=== PATIENT | male | born 1945 | race Caucasian/White ===

== ENCOUNTER 2016-12-06 17:22 | Emergency (ER) | payer MEDICARE ==
[2016-12-06 17:43] LABS: Bilirubin Negative (Negative); Blood, Urine Trace (Negative); Glucose, Urine (Dipstick) 500 mg/dL (Negative); Ketone, Urine 15 mg/dL (Negative); Nitrite Negative (Negative); Protein, Urine (Dipstick) 30 mg/dL (Neg-Trace); Urobilinogen 0.2 mg/dL (0.2-1.0)
[2016-12-06 18:15] LABS: Anion Gap 10 mmol/L (-14-95); T. Carbon Dioxide 24.6 mmol/L (1.0-85.0); pH (Venous) 7.436 (7.35-7.45); vO2 Saturation-calc 92.9 % (0.0-100.0)
[2016-12-06 18:24] LABS: #Basophils 0.1 thou/uL (0.0-0.2); #Eosinphils 0.1 thou/uL (0.0-0.7); #Lymphocytes 2.7 thou/uL (1.20-3.40); #Monocytes 0.5 thou/uL (0.11-0.59); #Neutrophils 3.7 thou/uL (1.40-6.50); %Basophils 0.7 % (0.0-1.0); %Eosinophils 1.5 % (0.0-10.0); %Lymphocytes 38.6 % (21.0-51.0); %Monocytes 6.8 % (0.0-10.0); Hematocrit 36.1 % (42.0-52.0); Mean Platelet Volume 7.4 fL (7.4-10.4); Red Blood Cell (RBC) Count 3.78 mill/uL (4.70-6.10)
[2016-12-06 18:25] LABS: Bacteria/HPF None Seen HPF (None Seen); Hyaline Casts/LPF 0-3 HYALINE CAST LPF (0-3 Hyaline); RBC/HPF 0-3 HPF (0-3); Squamous Epithelial None Seen HPF (0-3); WBC/HPF 0-3 HPF (0-3)
[2016-12-06 18:32] LABS: ALT (SGPT) 15 U/L (8-55); AST (SGOT) 11 U/L (5-34); Alkaline Phosphatase 122 U/L (40-150); Anion Gap 16 mmol/L (10-20); BUN (Urea Nitrogen) 26 mg/dL (8.4-25.7); Bilirubin, Total 0.4 mg/dL (0.2-1.2); Calc. Creatinine Clearance 0 mL/min (70-130); Calcium 9.3 mg/dL (7.8-10.44); Carbon Dioxide 25 mmol/L (23-31); Chloride 97 mmol/L (98-107); Estimated GFR-MDRD 45; Globulin 2.6 g/dL (2.4-3.5); Protein, Total 6.4 g/dL (5.8-8.1)
--- NOTE | 2016-12-06 19:10 | CT ---
CT BRAIN WITHOUT CONTRAST: Indication: 71-year-old male with elevated glucose, confusion and irritability. Comparison: 11-22-16 FINDINGS: No acute infarct, hemorrhage, or hydrocephalus is noted. 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 Septum pellucidum and third ventricle are midline. Skull and extracranial soft tissues are unremarkable. IMPRESSION: No acute intracranial abnormality. POS: [facility]
--- NOTE | 2016-12-06 19:13 | RAD ---
AP CHEST: Indication: Altered mental status. Comparison: 04-18-04 FINDINGS: Heart size is mildly prominent. Pulmonary vasculature is normal. No confluent airspace opacity, pleu ral effusion, or pneumothorax is evident. No acute osseous abnormality is evident. IMPRESSION: Mild cardiomegaly without evidence of cardiac decompensation. POS: [facility]
[2016-12-06] MEDS ORDERED: Insulin Regular 300 UNITS/3 ML VIAL ONE (20:10)
--- NOTE | 2016-12-11 14:55 | EKG ---
Test Reason : Blood Pressure : / mmHG Vent. Rate : 070 BPM Atrial Rate : 070 BPM P-R Int : 158 ms QRS Dur : 080 ms QT Int : 408 ms P-R-T Axes : 050 020 038 degrees QTc Int : 440 ms Normal sinus rhythm Nonspecific T wave abnormality Abnormal ECG Confirmed by CRISTA VEE D.O. ([id number]), editorial assistant VINCE PONCE ([id number]) on 12/11/2016 2:55:04 PM Referred By: Confirmed By:CRISTA VEE D.O.
== END 2016-12-06 22:12 | disposition home or self-care (01) ==
LOC: ERS 17:22
DX: E10.65 Type 1 diabetes mellitus with hyperglycemia (principal); N17.9 Acute kidney failure, unspecified; E78.5 Hyperlipidemia, unspecified; Z86.73 Personal history of transient ischemic attack (TIA), and cerebral infarction without residual deficits; I10 Essential (primary) hypertension; Z79.82 Long term (current) use of aspirin; Z79.899 Other long term (current) drug therapy
CPT/HCPCS: 36415; 36416; 70450; 71010; 80053; 81003; 81015; 82010; 82330; 82803; 85025; 93005; 96361; 96374; J1815

== ENCOUNTER 2016-12-22 21:24 | Emergency (ER) | payer MEDICARE ==
[2016-12-22 23:06] LABS: #Basophils 0.1 thou/uL (0.0-0.2); #Eosinphils 0.2 thou/uL (0.0-0.7); #Lymphocytes 3.5 thou/uL (1.20-3.40); #Monocytes 0.8 thou/uL (0.11-0.59); #Neutrophils 4.5 thou/uL (1.40-6.50); %Basophils 0.9 % (0.0-1.0); %Eosinophils 2.3 % (0.0-10.0); %Lymphocytes 38.2 % (21.0-51.0); %Monocytes 9.2 % (0.0-10.0); Hematocrit 39.5 % (42.0-52.0); Mean Platelet Volume 7.4 fL (7.4-10.4); White Blood Cell (WBC) Count 9.1 thou/uL (4.8-10.8)
[2016-12-22] MEDS ORDERED: Furosemide 40 MG TAB ONE (23:09)
[2016-12-22 23:21] LABS: ALT (SGPT) 13 U/L (8-55); AST (SGOT) 13 U/L (5-34); Alkaline Phosphatase 122 U/L (40-150); Anion Gap 15 mmol/L (10-20); BUN (Urea Nitrogen) 14 mg/dL (8.4-25.7); Bilirubin, Total 0.5 mg/dL (0.2-1.2); Calc. Creatinine Clearance 0 mL/min (70-130); Calcium 9.4 mg/dL (7.8-10.44); Carbon Dioxide 25 mmol/L (23-31); Chloride 102 mmol/L (98-107); Estimated GFR-MDRD 85; Globulin 2.9 g/dL (2.4-3.5); Protein, Total 6.9 g/dL (5.8-8.1)
[2016-12-23 00:11] LABS: Bilirubin Negative (Negative); Blood, Urine Negative (Negative); Glucose, Urine (Dipstick) Negative (Negative); Ketone, Urine Negative (Negative); Nitrite Negative (Negative); Protein, Urine (Dipstick) Negative (Neg-Trace); Urobilinogen 0.2 mg/dL (0.2-1.0)
== END 2016-12-23 00:05 | disposition home or self-care (01) ==
LOC: ERS 21:24
DX: I10 Essential (primary) hypertension (principal); E10.9 Type 1 diabetes mellitus without complications; E78.5 Hyperlipidemia, unspecified; Z86.73 Personal history of transient ischemic attack (TIA), and cerebral infarction without residual deficits; Z79.899 Other long term (current) drug therapy; Z79.82 Long term (current) use of aspirin
CPT/HCPCS: 36415; 80053; 81003; 85025; 99284

== ENCOUNTER 2016-12-28 04:22 | Inpatient (IN) | payer MEDICARE ==
[2016-12-28] MEDS ORDERED: Dextrose 50% Abboject 50 ML SYRINGE ONE (05:11)
[2016-12-28 05:22] LABS: #Lymphocytes 1.7 thou/uL (1.20-3.40); #Monocytes 0.9 thou/uL (0.11-0.59); #Neutrophils 10.2 thou/uL (1.40-6.50); %Basophils 0.1 % (0.0-1.0); %Eosinophils 0.2 % (0.0-10.0); %Monocytes 7.2 % (0.0-10.0); Hematocrit 42.5 % (42.0-52.0); Red Blood Cell (RBC) Count 4.46 mill/uL (4.70-6.10); White Blood Cell (WBC) Count 12.8 thou/uL (4.8-10.8)
[2016-12-28 05:45] LABS: ALT (SGPT) 20 U/L (8-55); AST (SGOT) 30 U/L (5-34); Alkaline Phosphatase 124 U/L (40-150); Anion Gap 13 mmol/L (10-20); BUN (Urea Nitrogen) 13 mg/dL (8.4-25.7); Bilirubin, Total 0.6 mg/dL (0.2-1.2); Calc. Creatinine Clearance 0 mL/min (70-130); Calcium 9.6 mg/dL (7.8-10.44); Carbon Dioxide 30 mmol/L (23-31); Chloride 100 mmol/L (98-107); Estimated GFR-MDRD 68; Globulin 3.1 g/dL (2.4-3.5); Lipase 18 U/L (8-78); Protein, Total 7.3 g/dL (5.8-8.1)
[2016-12-28 05:49] LABS: Troponin I 0.024 ng/mL (< 0.028)
[2016-12-28 07:09] LABS: Bilirubin Negative (Negative); Blood, Urine Negative (Negative); Glucose, Urine (Dipstick) 100 mg/dL (Negative); Ketone, Urine Negative (Negative); Nitrite Negative (Negative); Protein, Urine (Dipstick) Negative (Neg-Trace); Urobilinogen 0.2 mg/dL (0.2-1.0)
--- NOTE | 2016-12-28 08:41 | CT ---
PRELIMINARY REPORT/[facility]/EMERGENCY AFTER-HOURS PROCEDURE: EXAM: CT Cervical Spine Without Intravenous Contrast EXAM DATE/TIME: Exam ordered 12/28/2016 5:37 AM CLINICAL HISTORY: 71 years old, male; Injury or trauma; Fall; Initial encounter; Blunt trauma; Patient HX: S/P fall TECHNIQUE: Axial computed tomography images of the cervical spine without intravenous contrast. COMPARISON: No relevant prior studies available. FINDINGS: Vertebrae: No acute cervical spine fracture is identified. Discs/spinal canal/neural foramina: No acute findings. No spinal canal stenosis. Soft tissues: Normal. Thyroid: There is a subcentimeter RIGHT thyroid lobe hypoattenuating nodule. Lung apices: The visualized portions of the lung apices are normal. IMPRESSION: No acute cervical spine fracture is identified. Thank you for allowing us to participate in the care of your patient. Dictated and Authenticated by: Crow Stern MD 12/28/2016 5:51 AM Central Time ([place]) FINAL REPORT CT CERVICAL SPINE WITHOUT CONTRAST: Date: 12/28/16 HISTORY: Trauma. Fall. Altered mental status. COMPARISON: None. FINDINGS: No acute fracture or malalignment. Lung apices are clear. Soft tissues are unremarkable. IMPRESSION: No acute fracture or malalignment. Findings are in agreement with the preliminary report by Melanie. POS: [facility]
[2016-12-28 10:06] LABS: Troponin I 0.025 ng/mL (< 0.028)
--- NOTE | 2016-12-28 10:11 | CT ---
PRELIMINARY REPORT/[facility]/EMERGENCY AFTER-HOURS PROCEDURE: EXAM: CT Head Without Intravenous Contrast EXAM DATE/TIME: Exam ordered 12/28/2016 5:35 AM CLINICAL HISTORY: 71 years old, male; Injury or trauma; Fall; Initial encounter; Blunt trauma (contusions or hematomas ); Without loss of consciousness; Patient HX: S/P fall TECHNIQUE: Axial computed tomography images of the head/brain without intravenous contrast. COMPARISON: No relevant prior studies available. FINDINGS: Brain: There are multiple small hypodensities in the basal ganglia, consistent with remote lacunar infarctions. No hemorrhage. Ventricles: Normal. No ventriculomegaly. Bones/joints: Normal. No acute fracture. Soft tissues: Normal. Sinuses: Unremarkable as visualized. No acute sinusitis. Mastoid air cells: Unremarkable as visualized. No mastoid effusion. IMPRESSION: No acute intracranial hemorrhage. Thank you for allowing us to participate in the care of your patient. Dictated and Authenticated by: Crow Stern MD 12/28/2016 5:49 AM Central Time ([place]) FINAL REPORT CT BRAIN WITHOUT CONTRAST: Date: 12/28/16 HISTORY: Altered mental status. COMPARISON: CT brain dated 12/06/16. FINDINGS/IMPRESSION: Findings and impression are concordant with the preliminary report by Melanie. No acute intracranial fi ndings. POS: [facility]
[2016-12-28] MEDS ORDERED: Triple Antibiotic Oint 1 GM Packet TOP PRN (10:19)
[2016-12-28] MEDS ORDERED: Dextrose 50% Abboject 50 ML SYRINGE IVP PRN (10:20)
[2016-12-28] MEDS ORDERED: Dextrose 5% in Water 1,000 ML IV PRN ×2 (10:20→14:09)
[2016-12-28] MEDS ORDERED: Amlodipine 5 MG TAB PO SCH (13:00)
[2016-12-28 13:32] LABS: Troponin I 0.023 ng/mL (< 0.028)
[2016-12-28 13:33] LABS: Critical Call CKMBM RESULT DECREASING
--- NOTE | 2016-12-28 13:42 | HP ---
DATE OF OBSERVATION: 12/28/2016 CHIEF COMPLAINT: Chest pain. HISTORY OF PRESENT ILLNESS: The patient is a 71[facility]-old [facility] patient who fell at the [facility] and was brought to the ER for further evaluation. While in the ER, he was noted to have boone e chest pain. There has been some facial bruising and ecchymosis from his fall, but otherwise CT sc ans of the neck and head and brain are negative; however, in the workup of his chest pain while init ial tests are negative, it is felt that he needed further testing and observation. PAST MEDICAL HISTORY: Significant for diabetes type 1, dyslipidemia, heart failure, TIA with residu al deficits, toxic encephalopathy, and hypertension. PAST SURGICAL HISTORY: Includes right hip. SOCIAL HISTORY: Denies alcohol use and drug use. No smoking. Lives at the [facility] at [facility]. ALLERGIES: He is allergic to PENICILLIN. MEDICATIONS: Included daily 81 mg aspirin, atorvastatin 40 mg, lisinopril 20 mg daily, metformin 50 0 mg b.i.d., Levemir 20 units subcutaneous b.i.d., Prilosec 20 mg daily, hydralazine 25 mg t.i.d. M ost recent evaluation had him come to the ER for elevated blood pressure. REVIEW OF SYSTEMS: CONSTITUTIONAL: He denies fever, chills, fatigue. HEENT: He has scattered bru ising to the face and complains of pain in the left side of his face after his fall. Denies rhinorr hea, lesions or discharge. Vision is not changed. There is no blurred vision or tearing. CHEST: Has some substernal discomfort, but no pain with inspiration or palpation or movement. HEART: Richard es palpitations or irregular beats. GASTROINTESTINAL: Denies nausea, vomiting, and pain. GENITOUR INARY: Denies dysuria or blood in urine or stool. MUSCULOSKELETAL: Has pain in the left side of h is face from fall, but otherwise no painful muscles with painful range of motion. ENDOCRINE: No ar eas of swelling or edema. 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 He has ecchymotic bruising on the left side of his face. PHYSICAL EXAMINATION: VITAL SIGNS: At the time of admission, elderly while alert male, responsive, cooperative. HEENT: Normocephalic, but with traumatic bruising and ecchymosis to the left side of his face. Pup ils equal, round, and reactive to light. Extraocular muscles are intact. Conjunctivae injected and red. TMs, nares, and pharynx are clear. NECK: Supple, trachea midline, no mass. CHEST: Clear to auscultation. Nontender to palpation. HEART: Regular rate and rhythm, no murmur. ABDOMEN: Soft and nontender without organomegaly. GENITOURINARY: Deferred. EXTREMITIES: Without clubbing, cyanosis, or edema. Normal range of motion present. SKIN: Without rashes or lesions aside from the ecchymotic bruising on his left side of his face and abrasions to his right leg and knee from the fall. NEUROLOGIC: Neurologically, he has significant dementia, not able to remember the examiner from pre vious visit in my office. Cranial nerves are intact. Unable to test gait and cerebellar function a t this time. Sensory exam is intact. He moves all of his extremities appropriately. Mentation, he admits to poor memory. LABORATORY DATA AND X-RAY FINDINGS: The lab work so far shows WBC is 12.8, hemoglobin 13.9, hematoc rit 42.5 with platelets at 388. Sodium 139, potassium 4.2, chloride 100, CO2 is 30, BUN 13, creatin ine 1.0, glucose is 45 initially, now it is 135, 93, and 91, CK-MB is elevated at 13.4. Troponins a re negative. Liver functions normal. UA shows 100 of glucose, but otherwise unremarkable. The CT scan of the head and neck showed no acute fractures or lesions. ASSESSMENT: 1. Fall at [facility], probably hypoglycemia related. 2. Chest pain, atypical, and doubt cardiac origin. 3. Dementia. PLAN: Will be observation for serial evaluation of cardiac enzymes and should the troponins continu e negative, we will then return to [facility]. He will also be given Tylenol for pain management as needed. Other medications will be continued as well.
[2016-12-28] MEDS ORDERED: Insulin Regular 300 UNITS/3 ML VIAL SC PRN (14:09)
[2016-12-28] MEDS ORDERED: Insulin NPH/Reg Insulin Hm 300 UNITS/3 ML VIAL SC SCH (14:15)
[2016-12-28] MEDS: hydrALAZINE 25 MG TAB PO SCH ×2 (14:34→21:15)
[2016-12-28] MEDS: Sodium Chloride 0.9% 1,000 ML IV SCH (14:35)
[2016-12-28 15:50] LABS: Troponin I Less than 0.010 ng/mL (< 0.028)
[2016-12-28 15:52] LABS: Critical Call CKMBM RESULT DECREASING
[2016-12-28] MEDS: metFORMIN 500 MG TAB PO SCH (16:13)
[2016-12-28] MEDS ORDERED: metFORMIN 500 MG TAB PO SCH (17:00)
[2016-12-28] MEDS ORDERED: Adacel (T-DAP) 0.5 ML VIAL IM ONE (21:00)
[2016-12-28] MEDS ORDERED: FLU VACC TS2017-18 (>65YR) 0.5 ML SYRINGE IM ONE (21:00)
[2016-12-28] MEDS: Atorvastatin Calcium 40 MG TAB PO SCH (21:15)
[2016-12-29] MEDS: Sodium Chloride 0.9% 1,000 ML IV SCH ×2 (01:00→08:52)
--- NOTE | 2016-12-29 08:05 | PRG ---
DATE OF SERVICE: 12/29/2016 SUBJECTIVE: The patient is awake. He states he does not feel good \\\\"secondary to his blood sugar issues\\\\". There is no family here at bedside. According to the nurse, he did have labile blood s ugars all through the night. It did get as low as in the 20s. The patient is also on IV fluids sec ondary to hypoglycemia. PHYSICAL EXAMINATION GENERAL: On evaluation he is awake. VITAL SIGNS: Blood pressure is 130/60, pulse 70, respirations 18, temperature 98.2. NECK: Supple with no increased JVP or carotid bruit. Carotid had good upstroke with no thyromegaly . COR: Regular rate and rhythm. No murmur, S3. CHEST: Symmetrical. Clear to auscultation and percussion. ABDOMEN: Soft, nontender with normoactive bowel sounds. No bruit or organomegaly. EXTREMITIES: No edema or cyanosis. He had palpable pedal pulses. SKIN: There is no evidence of ulcers lesion, or rash. NEUROLOGIC: He is awake and he is slightly confused. LABORATORY DATA: Showed a UA so far to be negative of leukocyte, culture is pending. His white blo od cells 12.8. His H\\T\\H 13.9 and 42.5, platelets 388. His hemoglobin A1c was 9. ASSESSMENT: 1. Insulin dependent diabetes mellitus, not controlled. 2. Dementia. 3. Leukocytosis, questionable etiology. 4. Noncardiac chest pain, resolved. PLAN: 1. I will continue the patient's intravenous fluids for now. 2. We will change his metformin to 500 b.i.d. 3. We will check blood sugars every 3 hours and use low dose sliding scale insulin per protocol. 4. We will check a urinalysis and C\\T\\S and chest x-ray secondary to leukocytosis. 5. We will check a CBC in the morning. 6. We will get out of bed and place him in the chair.
[2016-12-29] MEDS: metFORMIN 500 MG TAB PO SCH ×2 (08:53→16:49)
[2016-12-29] MEDS ORDERED: Insulin Detemir 100 UNITS/ML 10 UNITS in Pre-Filled Syringe 1 EACH SC SCH (09:00)
[2016-12-29] MEDS: Amlodipine 5 MG TAB PO SCH (09:32)
[2016-12-29] MEDS: hydrALAZINE 25 MG TAB PO SCH ×3 (09:32→20:00)
[2016-12-29] MEDS: Dextrose 5 % And 0.9 % NaCl 1,000 ML IV SCH ×2 (09:36→20:01)
--- NOTE | 2016-12-29 09:40 | RAD ---
RADIOGRAPH CHEST 2 VIEWS: Date: 12/29/16 Time: 0926 HOURS HISTORY: 71-year-old male with chest pain. COMPARISON: 1 view study of 12/06/16. FINDINGS: Again demonstrated are the cardiomegaly and ectatic, tortuous thoracic aorta. There is hyperlucency of the lungs representing COPD. The lateral view demonstrates blunting of the bilateral posterior co stophrenic angles representing small pleural effusions. No consolidation or pulmonary edema. No pneu mothorax. IMPRESSION: 1. Small bilateral pleural effusions. 2. Cardiomegaly without congestive heart failure. 3. Emphysema. 4. No acute infiltrate. LUISITO [] POS: [facility]
[2016-12-29] MEDS ORDERED: metFORMIN 500 MG TAB PO SCH (09:45)
[2016-12-29 11:46] LABS: Bilirubin Negative (Negative); Blood, Urine Negative (Negative); Glucose, Urine (Dipstick) >=1000 mg/dL (Negative); Ketone, Urine Negative (Negative); Nitrite Negative (Negative); Protein, Urine (Dipstick) Negative (Neg-Trace); Urobilinogen 0.2 mg/dL (0.2-1.0)
[2016-12-29 11:49] LABS: Bacteria/HPF None Seen HPF (None Seen); Hyaline Casts/LPF 0-3 HYALINE CAST LPF (0-3 Hyaline); RBC/HPF 0-3 HPF (0-3); Squamous Epithelial None Seen HPF (0-3); WBC/HPF None Seen HPF (0-3)
--- NOTE | 2016-12-29 14:59 | EKG ---
Test Reason : Blood Pressure : / mmHG Vent. Rate : 072 BPM Atrial Rate : 072 BPM P-R Int : 174 ms QRS Dur : 082 ms QT Int : 414 ms P-R-T Axes : 060 023 -01 degrees QTc Int : 453 ms Normal sinus rhythm Nonspecific T wave abnormality Abnormal ECG Confirmed by KRISTOPHER CUELLO ([id number]) on 12/29/2016 2:59:12 PM Referred By: Benigno FARMER Confirmed By:KRISTOPHER CUELLO
[2016-12-29] MEDS: Insulin Regular 300 UNITS/3 ML VIAL SC PRN ×2 (18:24→21:03)
[2016-12-29] MEDS: Atorvastatin Calcium 40 MG TAB PO SCH (20:00)
[2016-12-29] MEDS ORDERED: Sodium Chloride 0.9% 10 ML ONE (21:00)
[2016-12-30 04:47] LABS: #Basophils 0.1 thou/uL (0.0-0.2); #Eosinphils 0.2 thou/uL (0.0-0.7); #Lymphocytes 2.7 thou/uL (1.20-3.40); #Neutrophils 4.8 thou/uL (1.40-6.50); %Basophils 0.8 % (0.0-1.0); %Eosinophils 2.4 % (0.0-10.0); %Lymphocytes 30.8 % (21.0-51.0); Hematocrit 38.3 % (42.0-52.0); Red Blood Cell (RBC) Count 4.08 mill/uL (4.70-6.10); White Blood Cell (WBC) Count 8.8 thou/uL (4.8-10.8)
[2016-12-30] MEDS: Insulin Regular 300 UNITS/3 ML VIAL SC PRN ×2 (06:13→09:27)
[2016-12-30] MEDS: Dextrose 5 % And 0.9 % NaCl 1,000 ML IV SCH ×2 (09:17→14:31)
[2016-12-30] MEDS: Amlodipine 5 MG TAB PO SCH (09:20)
[2016-12-30] MEDS: hydrALAZINE 25 MG TAB PO SCH ×3 (09:20→21:13)
[2016-12-30] MEDS: Insulin NPH/Reg Insulin Hm 300 UNITS/3 ML VIAL SC SCH ×2 (09:20→21:14)
[2016-12-30] MEDS: metFORMIN 500 MG TAB PO SCH ×2 (11:50→15:51)
[2016-12-30] MEDS: Insulin Detemir 100 UNITS/ML 20 UNITS in Pre-Filled Syringe 1 EACH SC SCH (12:41)
[2016-12-30] MEDS: Atorvastatin Calcium 40 MG TAB PO SCH (21:13)
[2016-12-31] MEDS: Dextrose 5 % And 0.9 % NaCl 1,000 ML IV SCH ×2 (02:33→11:43)
[2016-12-31 04:34] LABS: #Eosinphils 0.2 thou/uL (0.0-0.7); #Lymphocytes 2.5 thou/uL (1.20-3.40); #Monocytes 0.9 thou/uL (0.11-0.59); #Neutrophils 4.7 thou/uL (1.40-6.50); %Basophils 0.2 % (0.0-1.0); %Eosinophils 2.1 % (0.0-10.0); %Monocytes 11.2 % (0.0-10.0); Mean Platelet Volume 6.9 fL (7.4-10.4); Red Blood Cell (RBC) Count 4.04 mill/uL (4.70-6.10); White Blood Cell (WBC) Count 8.3 thou/uL (4.8-10.8)
[2016-12-31 05:01] LABS: Anion Gap 13 mmol/L (10-20); BUN (Urea Nitrogen) 16 mg/dL (8.4-25.7); Calc. Creatinine Clearance 82 mL/min (70-130); Calcium 9.2 mg/dL (7.8-10.44); Carbon Dioxide 27 mmol/L (23-31); Chloride 101 mmol/L (98-107); Estimated GFR-MDRD 83
[2016-12-31] MEDS: Dextrose 50% Abboject 50 ML SYRINGE IVP PRN (06:19)
--- NOTE | 2016-12-31 08:30 | PRG ---
DATE OF SERVICE: 12/31/2016 SUBJECTIVE: The patient is sitting in the chair, eating breakfast. He is about to be moved to the 4th floor. Unfortunately, his blood sugars are still all over the place, this morning it was 40. T he nurse does say he does eat good and he did have a snack last night. PHYSICAL EXAMINATION: GENERAL: He is awake. VITAL SIGNS: Blood pressure is 190/90, pulse 77, respirations 18, he is afebrile. NECK: Supple with no increased JVP or carotid bruit. Carotid had good upstroke with no thyromegaly . COR: Regular rate and rhythm. CHEST: Symmetrical. Clear to auscultation and percussion. ABDOMEN: Soft, nontender with normoactive bowel sounds. No bruit or organomegaly. EXTREMITIES: No edema or cyanosis. He had palpable pedal pulses. SKIN: There is no evidence of ulcers lesion, or rash. NEUROLOGIC: He is awake and confused. LABORATORY: His CBC is normal. His CMP is normal. ASSESSMENT: 1. Diabetes, uncontrolled. 2. Dementia. 3. Hypertension. PLAN: We will transfer the patient to the 4th floor and make some changes with diabetic medication. Unfortunately [facility].
[2016-12-31] MEDS: metFORMIN 500 MG TAB PO SCH ×2 (09:20→17:16)
[2016-12-31] MEDS: hydrALAZINE 25 MG TAB PO SCH ×3 (09:21→20:20)
[2016-12-31] MEDS: Amlodipine 5 MG TAB PO SCH (09:21)
[2016-12-31] MEDS: Insulin NPH/Reg Insulin Hm 300 UNITS/3 ML VIAL SC SCH (09:30)
[2016-12-31] MEDS: Insulin Detemir 100 UNITS/ML 20 UNITS in Pre-Filled Syringe 1 EACH SC SCH (11:17)
[2016-12-31] MEDS: Acetaminophen 325 MG TAB PO PRN (17:17)
--- NOTE | 2016-12-31 19:13 | CT ---
CT CHEST NONCONTRAST: Date: 12/31/16 INDICATION: Fever. FINDINGS: There is a mild left pleural effusion and trace right pleural fluid. There are areas of atelectasis involving each lung. No pneumothorax. Regional soft tissues, including vasculature and lymph nodes, are limited in assessment by noncontrast technique. There is vascular calcification. There is osseou s demineralization and scattered osseous degenerative change. IMPRESSION: Pleural fluid, left greater than right, with associated pulmonary parenchymal opacification bilatera lly favoring atelectasis. POS: [facility]
--- NOTE | 2016-12-31 20:00 | RAD ---
LEFT ELBOW FOUR VIEWS: HISTORY: Left elbow pain. FINDINGS: Mild degenerative changes are present. No fracture, dislocation, or bony destruction is identified. POS: [facility]
[2016-12-31] MEDS: Azithromycin 250 MG TAB PO SCH (20:20)
[2016-12-31] MEDS: Atorvastatin Calcium 40 MG TAB PO SCH (20:20)
[2016-12-31] MEDS ORDERED: Insulin NPH/Reg Insulin Hm 300 UNITS/3 ML VIAL SC SCH (21:00)
[2017-01-01] MEDS: hydrALAZINE 25 MG TAB PO SCH ×3 (08:45→20:07)
[2017-01-01] MEDS: metFORMIN 500 MG TAB PO SCH ×2 (08:45→17:34)
[2017-01-01] MEDS: Amlodipine 10 MG TAB PO SCH (08:45)
[2017-01-01] MEDS: Insulin NPH/Reg Insulin Hm 300 UNITS/3 ML VIAL SC SCH ×2 (08:55→20:09)
[2017-01-01] MEDS: Insulin Detemir 100 UNITS/ML 20 UNITS in Pre-Filled Syringe 1 EACH SC SCH (10:14)
--- NOTE | 2017-01-01 10:30 | PRG ---
DATE OF SERVICE: 01/01/2017 This is CHRISTOPHER Winters-Ever, dictating for Sher Baldwin M.D. SUBJECTIVE: The patient had some fever late afternoon into the early evening. I did order a series of tests and found that he did have strep. Therefore, he was started on appropriate antibiotics. The patient's blood sugar was much better in the last 12 hours or so. PHYSICAL EXAMINATION: GENERAL: Upon evaluation, he is awake, he is confused. VITAL SIGNS: Blood pressure is high, 160/70; pulse 80; respirations 20; temperature better at 98.9. NECK: Supple with no increased JVP or carotid bruit. Carotid had good upstroke with no thyromegaly . COR: Regular rate and rhythm. CHEST: Symmetrical. Clear to auscultation and percussion. ABDOMEN: Soft, nontender with normoactive bowel sounds. There is no bruit or organomegaly. EXTREMITIES: No edema or cyanosis. Palpable pedal pulses. SKIN: There is no evidence of ulcers lesion, or rash. NEUROLOGIC: He is awake, but confused. ASSESSMENT: 1. Streptococcal pharyngitis. 2. Diabetes. 3. Dementia. 4. Hyperlipidemia. 5. Hypertension. PLAN: 1. The patient's insulin will be changed. We will also change his Accu-Cheks to a.c. and at bedtim e. 2. We will adjust his blood pressure medication. 3. Hopefully if all is okay, he will be able [facility] tomorrow.
[2017-01-01] MEDS: Insulin Regular 300 UNITS/3 ML VIAL SC PRN ×2 (12:23→17:46)
[2017-01-01] MEDS: Acetaminophen 325 MG TAB PO PRN (20:07)
[2017-01-01] MEDS: Azithromycin 250 MG TAB PO SCH (20:07)
[2017-01-01] MEDS: Atorvastatin Calcium 40 MG TAB PO SCH (20:07)
--- NOTE | 2017-01-02 08:36 | PRG ---
DATE OF SERVICE: 01/02/2017 This is ILDA Winters dictating a progress note for Sher Baldwin M.D. SUBJECTIVE: Patient is confused. He thinks he is in \\\\"mediation.\\\\" There is no family here at [facility]. PHYSICAL EXAMINATION: VITAL SIGNS: Upon evaluation, his blood pressure is 160/90, pulse 70, respirations 18. He is afebr ile. NECK: Supple with no increased JVP or carotid bruit. Carotid had good upstroke with no thyromegaly . COR: Regular rate and rhythm. CHEST: Symmetrical. Clear to auscultation and percussion. ABDOMEN: Soft, nontender with normoactive bowel sounds. No bruit or organomegaly. EXTREMITIES: No edema or cyanosis. Palpable pedal pulses. SKIN: There is no evidence of ulcers, lesion, or rash. NEUROLOGIC: He is confused. LABORATORY DATA: His blood sugar is not hypoglycemic; it is running in the 200s. ASSESSMENT: 1. Diabetes. 2. Dementia. 3. Streptococcal pharyngitis. 4. Hypertension. PLAN: The patient is not safe to go back to assisted living secondary to his dementia and his diabe jasmyne. So, therefore, we will go ahead and do placement in a [facility]. So, once that is obtained , we are looking on sending him to a fdc.
[2017-01-02] MEDS: metFORMIN 500 MG TAB PO SCH ×2 (09:02→17:30)
[2017-01-02] MEDS: hydrALAZINE 25 MG TAB PO SCH ×3 (09:02→21:01)
[2017-01-02] MEDS: Amlodipine 10 MG TAB PO SCH (09:02)
[2017-01-02] MEDS: Insulin Detemir 100 UNITS/ML 20 UNITS in Pre-Filled Syringe 1 EACH SC SCH (09:03)
[2017-01-02] MEDS: Insulin NPH/Reg Insulin Hm 300 UNITS/3 ML VIAL SC SCH ×2 (09:04→21:15)
[2017-01-02] MEDS: Insulin Regular 300 UNITS/3 ML VIAL SC PRN ×2 (12:31→19:53)
[2017-01-02] MEDS: Azithromycin 250 MG TAB PO SCH (21:00)
[2017-01-02] MEDS: Atorvastatin Calcium 40 MG TAB PO SCH (21:00)
[2017-01-03] MEDS: metFORMIN 500 MG TAB PO SCH ×2 (08:17→16:47)
[2017-01-03] MEDS: Amlodipine 10 MG TAB PO SCH (08:18)
[2017-01-03] MEDS: hydrALAZINE 25 MG TAB PO SCH ×3 (08:18→20:40)
[2017-01-03] MEDS: Insulin Detemir 100 UNITS/ML 20 UNITS in Pre-Filled Syringe 1 EACH SC SCH (08:19)
[2017-01-03] MEDS: Insulin NPH/Reg Insulin Hm 300 UNITS/3 ML VIAL SC SCH ×2 (08:20→20:41)
[2017-01-03] MEDS ORDERED: Metoprolol Tartrate 25 MG TAB PO SCH (09:00)
[2017-01-03] MEDS: Insulin Regular 300 UNITS/3 ML VIAL SC PRN ×2 (12:15→20:42)
--- NOTE | 2017-01-03 17:50 | PRG ---
DATE OF SERVICE: 01/03/2017 This is CHRISTOPHER Winters-Ever, dictating for Sher Baldwin M.D. SUBJECTIVE: The patient had a good night. He is eating well. He did have a bowel movement. His b lood sugars are better than they have been. PHYSICAL EXAMINATION: GENERAL: On evaluation, he is awake, he is confused. VITAL SIGNS: His blood pressure is 160/90, this is before medications, pulse 80, respirations 18, h e is afebrile. NECK: Supple with no increased JVP or carotid bruit. Carotid had good upstroke with no thyromegaly . COR: Regular rate and rhythm. CHEST: Symmetrical. Clear to auscultation and percussion. ABDOMEN: Soft, nontender with normoactive bowel sounds. There is no bruit or organomegaly. EXTREMITIES: No edema or cyanosis. Palpable pedal pulses. SKIN: There is no evidence of ulcers, lesion, or rash. NEUROLOGIC: He is awake, but he is confused. ASSESSMENT: 1. Diabetes. 2. Dementia. 3. Hypertension. PLAN: The patient will be going to a intermediate once we have arrangement from social work associate as I feel with his dementia and his poorly controlled diabetes, he will be better served there than [facility].
[2017-01-03] MEDS: Azithromycin 250 MG TAB PO SCH (20:40)
[2017-01-03] MEDS: Atorvastatin Calcium 40 MG TAB PO SCH (20:40)
[2017-01-03] MEDS: Metoprolol Tartrate 25 MG TAB PO SCH (20:41)
[2017-01-03] MEDS: Acetaminophen 325 MG TAB PO PRN (20:41)
[2017-01-04] MEDS ORDERED: Insulin NPH/Reg Insulin Hm 300 UNITS/3 ML VIAL SC SCH (08:00)
[2017-01-04] MEDS: Insulin Detemir 100 UNITS/ML 20 UNITS in Pre-Filled Syringe 1 EACH SC SCH (09:30)
[2017-01-04] MEDS: Metoprolol Tartrate 25 MG TAB PO SCH ×2 (09:31→21:40)
[2017-01-04] MEDS: Amlodipine 10 MG TAB PO SCH (09:31)
[2017-01-04] MEDS: hydrALAZINE 25 MG TAB PO SCH ×3 (09:31→21:39)
[2017-01-04] MEDS: metFORMIN 500 MG TAB PO SCH ×2 (09:32→16:45)
[2017-01-04] MEDS: Insulin Regular 300 UNITS/3 ML VIAL SC PRN ×2 (14:09→18:41)
[2017-01-04] MEDS: Insulin NPH/Reg Insulin Hm 300 UNITS/3 ML VIAL SC SCH (18:40)
[2017-01-04] MEDS: Azithromycin 250 MG TAB PO SCH (21:39)
[2017-01-04] MEDS: Acetaminophen 325 MG TAB PO PRN (21:39)
[2017-01-04] MEDS: Atorvastatin Calcium 40 MG TAB PO SCH (21:39)
[2017-01-05] MEDS ORDERED: Insulin NPH/Reg Insulin Hm 300 UNITS/3 ML VIAL SC SCH (08:00)
[2017-01-05] MEDS: Metoprolol Tartrate 25 MG TAB PO SCH ×2 (08:14→20:25)
[2017-01-05] MEDS: Insulin Detemir 100 UNITS/ML 20 UNITS in Pre-Filled Syringe 1 EACH SC SCH (08:14)
[2017-01-05] MEDS: metFORMIN 500 MG TAB PO SCH ×2 (08:14→15:56)
[2017-01-05] MEDS: Amlodipine 10 MG TAB PO SCH (08:14)
[2017-01-05] MEDS: hydrALAZINE 25 MG TAB PO SCH ×3 (08:14→20:25)
--- NOTE | 2017-01-05 08:23 | PRG ---
DATE OF SERVICE: 01/05/2017 This is CHRISTOPHER Winters-Ever, dictating for Sher Baldwin M.D. SUBJECTIVE: The patient is still confused. Unfortunately, he does not have any family or any legal guardianship. So, therefore, we are having a hard time deciding what to do with this gentleman, ev en though he does need care home or [facility]. The clinical social worker is aware of this and is tryi ng to figure out a plan. Upon evaluation, he is awake, he is confused, he is eating breakfast. PHYSICAL EXAMINATION: VITAL SIGNS: His blood pressure was high last night; however, the blood pressure this morning is no t documented yet. Pulse is 68, respirations 18, and he is afebrile. NECK: Supple with no increased JVP or carotid bruit. Carotid had good upstroke with no thyromegaly . COR: Regular rate and rhythm. CHEST: Symmetrical. Clear to auscultation and percussion. ABDOMEN: Soft, nontender with normoactive bowel sounds. There is no bruit or organomegaly. EXTREMITIES: No edema or cyanosis. Palpable pedal pulses. SKIN: There is no evidence of ulcers, lesion, or rash. NEUROLOGIC: He is confused. ASSESSMENT: 1. Dementia. 2. Labile diabetes. 3. Hypertension. PLAN: I will let the clinical social worker continue to work on discharge placement with this patient. We w ill also speak with Dr. Baldwin about this. This is a hard case as the patient again has no family an d his dementia has progressed.
[2017-01-05] MEDS: Insulin Regular 300 UNITS/3 ML VIAL SC PRN ×2 (11:59→20:28)
[2017-01-05] MEDS: Insulin NPH/Reg Insulin Hm 300 UNITS/3 ML VIAL SC SCH (17:31)
[2017-01-05] MEDS: Atorvastatin Calcium 40 MG TAB PO SCH (20:25)
[2017-01-06] MEDS: Metoprolol Tartrate 25 MG TAB PO SCH ×2 (08:17→20:35)
[2017-01-06] MEDS: Amlodipine 10 MG TAB PO SCH (08:19)
[2017-01-06] MEDS: hydrALAZINE 25 MG TAB PO SCH ×3 (08:19→20:35)
[2017-01-06] MEDS: metFORMIN 500 MG TAB PO SCH ×2 (08:20→17:14)
[2017-01-06] MEDS: Insulin Detemir 100 UNITS/ML 20 UNITS in Pre-Filled Syringe 1 EACH SC SCH (08:20)
[2017-01-06] MEDS: Insulin NPH/Reg Insulin Hm 300 UNITS/3 ML VIAL SC SCH ×2 (08:23→17:13)
[2017-01-06] MEDS: Insulin Regular 300 UNITS/3 ML VIAL SC PRN (12:21)
[2017-01-06] MEDS: Atorvastatin Calcium 40 MG TAB PO SCH (20:35)
--- NOTE | 2017-01-07 08:14 | PRG ---
DATE OF SERVICE: 01/07/2017 The patient is awake, he is confused. He does not know where he is at. He does not know who the pr esident is. There is no family or friends here at bedside. PHYSICAL EXAMINATION: GENERAL: He is awake, he is confused. VITAL SIGNS: Blood pressure 150/80, pulse 60, respirations 18, he is afebrile. NECK: Supple, no jugular venous pulses or carotid bruit. Carotid had good upstroke, no thyromegaly . CARDIAC: Regular rate and rhythm. CHEST: Chest symmetrical, clear to auscultation and percussion. ABDOMEN: Soft and nontender with normoactive bowel sounds. There is no bruit or organomegaly. EXTREMITIES: No edema or cyanosis. He had palpable pedal pulses. SKIN: There is no evidence of ulcers, lesions or rash. NEUROLOGIC: He is confused. LABORATORY: His blood sugar is better in the 150s. ASSESSMENT: 1. Dementia. 2. Insulin dependent diabetes mellitus. 3. Hypertension, better controlled. PLAN: The patient will continue the same medication regimen. We are still waiting for placement fo r this gentleman which may take several more days.
[2017-01-07] MEDS: hydrALAZINE 25 MG TAB PO SCH ×3 (08:54→21:44)
[2017-01-07] MEDS: Metoprolol Tartrate 25 MG TAB PO SCH ×2 (08:54→21:44)
[2017-01-07] MEDS: Insulin Detemir 100 UNITS/ML 20 UNITS in Pre-Filled Syringe 1 EACH SC SCH (08:54)
[2017-01-07] MEDS: metFORMIN 500 MG TAB PO SCH ×2 (08:54→15:30)
[2017-01-07] MEDS: Amlodipine 10 MG TAB PO SCH (08:54)
[2017-01-07] MEDS: Insulin NPH/Reg Insulin Hm 300 UNITS/3 ML VIAL SC SCH ×2 (08:57→17:53)
[2017-01-07] MEDS: Insulin Regular 300 UNITS/3 ML VIAL SC PRN (12:34)
[2017-01-07 13:13] VITALS: BMI 24.0
[2017-01-07] MEDS: Atorvastatin Calcium 40 MG TAB PO SCH (21:44)
[2017-01-08] MEDS: Insulin NPH/Reg Insulin Hm 300 UNITS/3 ML VIAL SC SCH ×2 (08:30→17:54)
[2017-01-08] MEDS: Amlodipine 10 MG TAB PO SCH (08:59)
[2017-01-08] MEDS: Metoprolol Tartrate 25 MG TAB PO SCH ×2 (09:00→21:26)
[2017-01-08] MEDS: metFORMIN 500 MG TAB PO SCH ×2 (09:00→17:23)
[2017-01-08] MEDS: Insulin Detemir 100 UNITS/ML 20 UNITS in Pre-Filled Syringe 1 EACH SC SCH (09:01)
[2017-01-08] MEDS: hydrALAZINE 25 MG TAB PO SCH ×3 (09:01→21:25)
[2017-01-08] MEDS: Insulin Regular 300 UNITS/3 ML VIAL SC PRN ×3 (12:50→21:26)
[2017-01-08] MEDS: Atorvastatin Calcium 40 MG TAB PO SCH (21:25)
[2017-01-09 05:14] LABS: #Basophils 0.1 thou/uL (0.0-0.2); #Eosinphils 0.1 thou/uL (0.0-0.7); #Lymphocytes 1.8 thou/uL (1.20-3.40); #Monocytes 0.6 thou/uL (0.11-0.59); #Neutrophils 6.2 thou/uL (1.40-6.50); %Basophils 0.7 % (0.0-1.0); %Eosinophils 0.9 % (0.0-10.0); %Lymphocytes 20.5 % (21.0-51.0); %Monocytes 6.8 % (0.0-10.0); Hematocrit 39.5 % (42.0-52.0); Mean Platelet Volume 6.9 fL (7.4-10.4); Red Blood Cell (RBC) Count 4.17 mill/uL (4.70-6.10); White Blood Cell (WBC) Count 8.8 thou/uL (4.8-10.8)
[2017-01-09 05:40] LABS: Anion Gap 14 mmol/L (10-20); BUN (Urea Nitrogen) 20 mg/dL (8.4-25.7); Calc. Creatinine Clearance 83 mL/min (70-130); Calcium 9.6 mg/dL (7.8-10.44); Carbon Dioxide 26 mmol/L (23-31); Chloride 102 mmol/L (98-107); Estimated GFR-MDRD 85
[2017-01-09] MEDS: Insulin NPH/Reg Insulin Hm 300 UNITS/3 ML VIAL SC SCH ×2 (08:42→15:36)
[2017-01-09] MEDS: Amlodipine 10 MG TAB PO SCH (08:43)
[2017-01-09] MEDS: metFORMIN 500 MG TAB PO SCH ×2 (08:44→15:36)
[2017-01-09] MEDS: hydrALAZINE 25 MG TAB PO SCH ×3 (08:45→20:01)
[2017-01-09] MEDS: Metoprolol Tartrate 25 MG TAB PO SCH ×2 (08:45→20:01)
[2017-01-09] MEDS: Insulin Detemir 100 UNITS/ML 20 UNITS in Pre-Filled Syringe 1 EACH SC SCH (08:47)
[2017-01-09] MEDS: Atorvastatin Calcium 40 MG TAB PO SCH (20:01)
[2017-01-10] MEDS: Insulin NPH/Reg Insulin Hm 300 UNITS/3 ML VIAL SC SCH (08:34)
[2017-01-10] MEDS: Amlodipine 10 MG TAB PO SCH (08:35)
[2017-01-10] MEDS: metFORMIN 500 MG TAB PO SCH ×2 (08:35→16:49)
[2017-01-10] MEDS: hydrALAZINE 25 MG TAB PO SCH ×3 (08:35→21:59)
[2017-01-10] MEDS: Metoprolol Tartrate 25 MG TAB PO SCH ×2 (08:35→22:00)
[2017-01-10] MEDS: Insulin Detemir 100 UNITS/ML 20 UNITS in Pre-Filled Syringe 1 EACH SC SCH (09:53)
[2017-01-10] MEDS: Insulin Regular 300 UNITS/3 ML VIAL SC PRN (11:29)
[2017-01-10] MEDS ORDERED: Insulin Regular 300 UNITS/3 ML VIAL SC SCH (21:00)
[2017-01-10] MEDS: Acetaminophen 325 MG TAB PO PRN (21:59)
[2017-01-10] MEDS: Atorvastatin Calcium 40 MG TAB PO SCH (21:59)
[2017-01-11] MEDS: metFORMIN 500 MG TAB PO SCH ×3 (08:30→16:52)
[2017-01-11] MEDS ORDERED: Insulin Regular 300 UNITS/3 ML VIAL SC PRN (08:53)
[2017-01-11] MEDS ORDERED: Insulin Regular 300 UNITS/3 ML VIAL SC SCH (09:00)
[2017-01-11] MEDS: Amlodipine 10 MG TAB PO SCH (10:52)
[2017-01-11] MEDS: Metoprolol Tartrate 25 MG TAB PO SCH ×2 (10:52→21:33)
[2017-01-11] MEDS: hydrALAZINE 25 MG TAB PO SCH ×3 (10:52→21:33)
[2017-01-11] MEDS: Insulin Detemir 100 UNITS/ML 30 UNITS in Pre-Filled Syringe 1 EACH SC SCH (10:58)
[2017-01-11] MEDS: Insulin Regular 300 UNITS/3 ML VIAL SC PRN (12:57)
[2017-01-11] MEDS: NPH, Human Insulin Isophane 300 UNIT/3 ML VIAL SC SCH (16:52)
[2017-01-11] MEDS: Atorvastatin Calcium 40 MG TAB PO SCH (21:33)
[2017-01-11] MEDS: Acetaminophen 325 MG TAB PO PRN (21:33)
[2017-01-12] MEDS: hydrALAZINE 25 MG TAB PO SCH ×3 (08:20→21:02)
[2017-01-12] MEDS: Metoprolol Tartrate 25 MG TAB PO SCH ×2 (08:20→21:02)
[2017-01-12] MEDS: metFORMIN 500 MG TAB PO SCH ×3 (08:20→18:03)
[2017-01-12] MEDS: Amlodipine 10 MG TAB PO SCH (08:21)
[2017-01-12] MEDS: NPH, Human Insulin Isophane 300 UNIT/3 ML VIAL SC SCH (08:21)
--- NOTE | 2017-01-12 08:51 | PRG ---
DATE OF SERVICE: 01/12/2017 SUBJECTIVE: The patient remains confused. He has been seen wandering in patient's room. He does h ave a sitter now. Upon evaluation, he is awake and he is confused. PHYSICAL EXAMINATION: VITAL SIGNS: His blood pressure 140/70, pulse 60, respiration rate 18, he is afebrile. NECK: Supple with no JVP or carotid bruit. Carotid had good upstroke with no thyromegaly. COR: Regular rate and rhythm. CHEST: Symmetrical. Clear to auscultation and percussion. ABDOMEN: Soft, nontender with normoactive bowel sounds. There is no bruit or organomegaly. EXTREMITIES: No edema or cyanosis. He had palpable pedal pulses. SKIN: There is no evidence of ulcer, lesion, or rash. NEUROLOGIC: He is confused. LABORATORY DATA: His blood sugar remains all over the place. ASSESSMENT: 1. Diabetes. 2. Dementia. PLAN: I did a Mini-Mental State Examination on the patient. He scored 8. Unfortunately, he has be en in the hospital several days now and I have not seen improvement in his cognitive status despite treating an infection. He is again wandering in patient's room. He remains confused. He only scor ed 8 out of 30 on the Mini-Mental State Examination. I do not feel like he has the mental capacity to take care of himself and make any type of decisions. Therefore, I feel like he does need correction. We are still waiting on placement at this time, once we are cleared by EPS.
[2017-01-12] MEDS: Insulin Detemir 100 UNITS/ML 30 UNITS in Pre-Filled Syringe 1 EACH SC SCH (09:11)
[2017-01-12] MEDS: Insulin Regular 300 UNITS/3 ML VIAL SC PRN (13:17)
[2017-01-12] MEDS: Atorvastatin Calcium 40 MG TAB PO SCH (21:02)
[2017-01-13] MEDS ORDERED: Insulin Regular 300 UNITS/3 ML VIAL SC PRN (07:52)
[2017-01-13] MEDS: hydrALAZINE 25 MG TAB PO SCH ×3 (08:25→21:48)
[2017-01-13] MEDS: metFORMIN 500 MG TAB PO SCH ×3 (08:25→18:47)
[2017-01-13] MEDS: Metoprolol Tartrate 25 MG TAB PO SCH ×2 (08:26→20:38)
[2017-01-13] MEDS: Amlodipine 10 MG TAB PO SCH (08:27)
[2017-01-13] MEDS: NPH, Human Insulin Isophane 300 UNIT/3 ML VIAL SC SCH (08:28)
[2017-01-13] MEDS: Insulin Detemir 100 UNITS/ML 30 UNITS in Pre-Filled Syringe 1 EACH SC SCH (08:33)
[2017-01-13] MEDS: Atorvastatin Calcium 40 MG TAB PO SCH (20:38)
[2017-01-14] MEDS: hydrALAZINE 25 MG TAB PO SCH ×3 (07:33→21:16)
[2017-01-14] MEDS: Pioglitazone HCl 15 MG TAB PO SCH (07:33)
[2017-01-14] MEDS: metFORMIN 500 MG TAB PO SCH ×2 (07:33→16:21)
[2017-01-14] MEDS: Metoprolol Tartrate 25 MG TAB PO SCH ×2 (07:33→21:17)
[2017-01-14] MEDS: Amlodipine 10 MG TAB PO SCH (07:34)
[2017-01-14] MEDS: NPH, Human Insulin Isophane 300 UNIT/3 ML VIAL SC SCH (07:36)
--- NOTE | 2017-01-14 07:57 | PRG ---
DATE OF SERVICE: 01/14/2017 SUBJECTIVE: The patient had a good night. He is eating breakfast. He still remained confused. He has got a sitter at bedside. PHYSICAL EXAMINATION: VITAL SIGNS: Blood pressure is 150/80, pulse 68, respirations 18, he is afebrile. NECK: Supple with no increased JVP or carotid bruit. Carotid had good upstroke with no thyromegaly . COR: Regular rate and rhythm. CHEST: Symmetrical. Clear to auscultation and percussion. ABDOMEN: Soft, nontender with normoactive bowel sounds. There is no bruit or organomegaly. EXTREMITIES: No edema or cyanosis. He had palpable pedal pulses. SKIN: There is no evidence of ulcers lesion, or rash. NEUROLOGIC: He is awake, but he is confused. LABORATORY: Blood sugars are still all over the place from 50 to 289. ASSESSMENT: 1. Dementia. 2. Diabetes. PLAN: We will continue to wait on [facility]PS so we can get this patient transferred to the [facility]. In the meantime, we will continue all full support.
[2017-01-14] MEDS: Insulin Detemir 100 UNITS/ML 40 UNITS in Pre-Filled Syringe 1 EACH SC SCH (08:38)
[2017-01-14] MEDS: Atorvastatin Calcium 40 MG TAB PO SCH (21:15)
--- NOTE | 2017-01-15 07:57 | PRG ---
DATE OF SERVICE: 01/15/2017 SUBJECTIVE: The patient is awake. He is confused. He does have a sitter at bedside. He does get up by himself and go to the bathroom and walk around in the room according to the sitter. PHYSICAL EXAMINATION: GENERAL: Upon evaluation, he is awake, he is confused. VITAL SIGNS: His blood pressure is 114/70, pulse 63, respirations 18, temperature 98.2. NECK: Supple with no increased JVP or carotid bruit. Carotid had good upstroke with no thyromegaly . COR: Regular rate and rhythm. CHEST: Symmetrical. Clear to auscultation and percussion. ABDOMEN: Soft, nontender with normoactive bowel sounds. No bruit or organomegaly. EXTREMITIES: No edema or cyanosis. Palpable pedal pulses. SKIN: There is no evidence of ulcer, lesion, or rash. NEUROLOGIC: He is awake, but he is confused. LABORATORY DATA: Showed glucose of 148, which is much better. He did have a drop yesterday afterno on of 48, but his blood pressure yesterday was more consistent. ASSESSMENT: 1. Dementia. 2. Diabetes. 3. Hypertension, improved. PLAN: We are still waiting on placement of this gentleman, otherwise, we will keep him here until h e has a permanent placement. This is CHRISTOPHER Winters-Ever dictating for Dr. Sher Baldwin.
[2017-01-15] MEDS: Amlodipine 10 MG TAB PO SCH (08:04)
[2017-01-15] MEDS: hydrALAZINE 25 MG TAB PO SCH ×3 (08:04→21:04)
[2017-01-15] MEDS: Pioglitazone HCl 15 MG TAB PO SCH (08:05)
[2017-01-15] MEDS: NPH, Human Insulin Isophane 300 UNIT/3 ML VIAL SC SCH (08:05)
[2017-01-15] MEDS: Metoprolol Tartrate 25 MG TAB PO SCH ×2 (08:05→21:04)
[2017-01-15] MEDS: metFORMIN 500 MG TAB PO SCH ×2 (08:05→16:44)
[2017-01-15] MEDS: Insulin Detemir 100 UNITS/ML 40 UNITS in Pre-Filled Syringe 1 EACH SC SCH (09:12)
[2017-01-15] MEDS: Atorvastatin Calcium 40 MG TAB PO SCH (21:04)
[2017-01-16] MEDS: Pioglitazone HCl 15 MG TAB PO SCH (10:43)
[2017-01-16] MEDS: metFORMIN 500 MG TAB PO SCH ×2 (10:44→16:18)
[2017-01-16] MEDS: hydrALAZINE 25 MG TAB PO SCH ×3 (10:45→21:31)
[2017-01-16] MEDS: Amlodipine 10 MG TAB PO SCH (10:45)
[2017-01-16] MEDS: Metoprolol Tartrate 25 MG TAB PO SCH ×2 (10:45→21:31)
[2017-01-16] MEDS: Insulin Detemir 100 UNITS/ML 40 UNITS in Pre-Filled Syringe 1 EACH SC SCH (10:46)
[2017-01-16] MEDS: NPH, Human Insulin Isophane 300 UNIT/3 ML VIAL SC SCH (10:54)
--- NOTE | 2017-01-16 11:47 | PRG ---
DATE OF SERVICE: 01/16/2017 SUBJECTIVE: Patient is awake. He is still confused. There is no sitter at bedside. PHYSICAL EXAMINATION: GENERAL: He is awake. He is confused. VITAL SIGNS: Blood pressure 130/80, pulse 60, respiration rate 18, afebrile. NECK: Supple with no increased JVP or carotid bruit. Carotid had good upstroke with no thyromegaly . COR: Regular rate and rhythm. CHEST: Symmetrical. Clear to auscultation and percussion. ABDOMEN: Soft, nontender with normoactive bowel sounds. There is no bruit or organomegaly. EXTREMITIES: No edema or cyanosis. Palpable pedal pulses. SKIN: There is no evidence of ulcers, lesion, or rash. NEUROLOGIC: He is awake, but confused. LABORATORY DATA: His blood sugar remains still kind of all over the place with blood sugar 462 to 2 12, that was much better than dropping extremely low and then getting all the way up to 400. ASSESSMENT: 1. Dementia. 2. Diabetes. 3. Hypertension, controlled. PLAN: We are still waiting for an EPS to help us with the placement of this patient. In the meanti me, he will continue on this floor. He will continue full effort. This is CHRISTOPHER Winters-Ever dictating for Sher Baldwin M.D.
[2017-01-16] MEDS: Atorvastatin Calcium 40 MG TAB PO SCH (21:31)
[2017-01-17] MEDS: NPH, Human Insulin Isophane 300 UNIT/3 ML VIAL SC SCH (10:09)
[2017-01-17] MEDS: hydrALAZINE 25 MG TAB PO SCH ×3 (10:10→20:39)
[2017-01-17] MEDS: metFORMIN 500 MG TAB PO SCH ×2 (10:10→16:27)
[2017-01-17] MEDS: Amlodipine 10 MG TAB PO SCH (10:10)
[2017-01-17] MEDS: Metoprolol Tartrate 25 MG TAB PO SCH ×2 (10:11→20:39)
[2017-01-17] MEDS: Pioglitazone HCl 15 MG TAB PO SCH (10:11)
[2017-01-17] MEDS: Insulin Detemir 100 UNITS/ML 40 UNITS in Pre-Filled Syringe 1 EACH SC SCH (10:11)
[2017-01-17] MEDS: Atorvastatin Calcium 40 MG TAB PO SCH (20:39)
[2017-01-18] MEDS: metFORMIN 500 MG TAB PO SCH ×2 (08:40→16:57)
[2017-01-18] MEDS: Amlodipine 10 MG TAB PO SCH (08:42)
[2017-01-18] MEDS: Metoprolol Tartrate 25 MG TAB PO SCH ×2 (08:43→20:07)
[2017-01-18] MEDS: hydrALAZINE 25 MG TAB PO SCH ×3 (08:43→20:09)
[2017-01-18] MEDS: Pioglitazone HCl 15 MG TAB PO SCH (08:43)
[2017-01-18] MEDS: NPH, Human Insulin Isophane 300 UNIT/3 ML VIAL SC SCH (08:49)
[2017-01-18] MEDS: Insulin Detemir 100 UNITS/ML 35 UNITS in Pre-Filled Syringe 1 EACH SC SCH (09:35)
[2017-01-18] MEDS: Atorvastatin Calcium 40 MG TAB PO SCH (20:07)
[2017-01-19 04:35] LABS: #Basophils 0.1 thou/uL (0.0-0.2); #Eosinphils 0.2 thou/uL (0.0-0.7); #Lymphocytes 2.6 thou/uL (1.20-3.40); #Monocytes 0.6 thou/uL (0.11-0.59); #Neutrophils 3.5 thou/uL (1.40-6.50); %Eosinophils 2.7 % (0.0-10.0); %Lymphocytes 37.1 % (21.0-51.0); %Monocytes 8.7 % (0.0-10.0); Hematocrit 33.9 % (42.0-52.0); Mean Platelet Volume 6.8 fL (7.4-10.4); Red Blood Cell (RBC) Count 3.59 mill/uL (4.70-6.10); White Blood Cell (WBC) Count 6.9 thou/uL (4.8-10.8)
[2017-01-19 04:54] LABS: Anion Gap 11 mmol/L (10-20); BUN (Urea Nitrogen) 25 mg/dL (8.4-25.7); Calc. Creatinine Clearance 80 mL/min (70-130); Carbon Dioxide 29 mmol/L (23-31); Chloride 100 mmol/L (98-107); Estimated GFR-MDRD 80
--- NOTE | 2017-01-19 08:36 | PRG ---
DATE OF SERVICE: 01/19/2017 SUBJECTIVE: The patient had a good night. He remains confused. PHYSICAL EXAMINATION: VITAL SIGNS: Blood pressure 150/80, pulse 70, respiration rate 18, he is afebrile. NECK: Supple with no increased JVP or carotid bruit. Carotid had good upstroke with no thyromegaly . COR: Regular rhythm. CHEST: Symmetrical. Clear to auscultation and percussion. ABDOMEN: Soft, nontender with normoactive bowel sounds. There is no bruit or organomegaly. EXTREMITIES: No edema or cyanosis. Palpable pedal pulses. SKIN: There is no evidence of ulcers lesion, or rash. NEUROLOGIC: He is confused. LABORATORY DATA: His blood sugar had no drops; however, it is running less than 250. ASSESSMENT: 1. Dementia. 2. Diabetes. 3. Strep pharyngitis resolved. PLAN: We are still waiting for placement of this gentleman as he needs more care than assisted mateo salamanca.
[2017-01-19] MEDS: Pioglitazone HCl 15 MG TAB PO SCH (08:43)
[2017-01-19] MEDS: metFORMIN 500 MG TAB PO SCH ×2 (08:43→16:48)
[2017-01-19] MEDS: Metoprolol Tartrate 25 MG TAB PO SCH ×2 (08:44→20:25)
[2017-01-19] MEDS: Amlodipine 10 MG TAB PO SCH (08:44)
[2017-01-19] MEDS: hydrALAZINE 25 MG TAB PO SCH ×3 (08:44→20:24)
[2017-01-19] MEDS: Insulin Detemir 100 UNITS/ML 35 UNITS in Pre-Filled Syringe 1 EACH SC SCH (08:46)
[2017-01-19] MEDS: NPH, Human Insulin Isophane 300 UNIT/3 ML VIAL SC SCH (08:48)
[2017-01-19] MEDS: Atorvastatin Calcium 40 MG TAB PO SCH (20:22)
[2017-01-20] MEDS: hydrALAZINE 25 MG TAB PO SCH ×3 (07:48→20:44)
[2017-01-20] MEDS: metFORMIN 500 MG TAB PO SCH ×2 (07:48→16:39)
[2017-01-20] MEDS: Metoprolol Tartrate 25 MG TAB PO SCH ×2 (07:48→20:45)
[2017-01-20] MEDS: Amlodipine 10 MG TAB PO SCH (07:49)
[2017-01-20] MEDS: NPH, Human Insulin Isophane 300 UNIT/3 ML VIAL SC SCH (07:50)
[2017-01-20] MEDS: Pioglitazone HCl 15 MG TAB PO SCH (07:53)
[2017-01-20] MEDS: Insulin Detemir 100 UNITS/ML 40 UNITS in Pre-Filled Syringe 1 EACH SC SCH (09:17)
[2017-01-20] MEDS: Atorvastatin Calcium 40 MG TAB PO SCH (20:44)
[2017-01-21 05:42] LABS: #Basophils 0.1 thou/uL (0.0-0.2); #Eosinphils 0.1 thou/uL (0.0-0.7); #Lymphocytes 2.7 thou/uL (1.20-3.40); #Monocytes 0.8 thou/uL (0.11-0.59); #Neutrophils 5.4 thou/uL (1.40-6.50); %Basophils 0.9 % (0.0-1.0); %Eosinophils 1.6 % (0.0-10.0); %Lymphocytes 29.9 % (21.0-51.0); %Monocytes 8.6 % (0.0-10.0); Mean Platelet Volume 6.9 fL (7.4-10.4); White Blood Cell (WBC) Count 9.1 thou/uL (4.8-10.8)
[2017-01-21 06:09] LABS: Anion Gap 12 mmol/L (10-20); BUN (Urea Nitrogen) 19 mg/dL (8.4-25.7); Calc. Creatinine Clearance 86 mL/min (70-130); Calcium 9.5 mg/dL (7.8-10.44); Carbon Dioxide 25 mmol/L (23-31); Chloride 101 mmol/L (98-107); Estimated GFR-MDRD 88
[2017-01-21] MEDS: metFORMIN 500 MG TAB PO SCH ×2 (08:35→16:58)
[2017-01-21] MEDS: hydrALAZINE 25 MG TAB PO SCH ×3 (10:13→22:04)
[2017-01-21] MEDS: Pioglitazone HCl 15 MG TAB PO SCH (10:13)
[2017-01-21] MEDS: Metoprolol Tartrate 25 MG TAB PO SCH ×2 (10:14→22:04)
[2017-01-21] MEDS: Insulin Detemir 100 UNITS/ML 40 UNITS in Pre-Filled Syringe 1 EACH SC SCH (10:14)
[2017-01-21] MEDS: Amlodipine 10 MG TAB PO SCH (10:14)
[2017-01-21] MEDS: NPH, Human Insulin Isophane 300 UNIT/3 ML VIAL SC SCH (11:18)
--- NOTE | 2017-01-21 16:15 | PRG ---
DATE OF SERVICE: 01/21/2017 SUBJECTIVE: The patient remains intermittently confused at times and has got friends at bedside. U kolby, were still having a hard time getting APS to help us with this assistance of the patie nt and again he find out that he had a niece; however, the niece has now only seen him twice in her lifetime and the rest of the family has been estranged. OBJECTIVE: GENERAL: Upon evaluation, he is awake. He is alert only x2. VITAL SIGNS: His blood pressure is 120/70, pulse 70, respirations 18. He is afebrile. NECK: Supple with no increased JVP or carotid bruit. Carotid had good upstroke with no thyromegaly . COR: Regular rate and rhythm. CHEST: Symmetrical. Clear to auscultation and percussion. ABDOMEN: Soft, nontender with normoactive bowel sounds. There is no bruit or organomegaly. EXTREMITIES: No edema, no cyanosis. He had palpable pedal pulses. SKIN: There is no evidence of ulcers, lesion, or rash. NEUROLOGIC: He is confused. LABORATORY DATA: His blood sugars are still all over the place from 60 to 407. ASSESSMENT: 1. Brittle diabetic. 2. Dementia. 3. Hypertension. PLAN: The patient will be started on Namenda and Aricept. I also discussed with the director of casework services elías middleton they will continue to work on guardianship and placement. This is CHRISTOPHER Winters-C dictating for Dr. Sher Baldwin.
[2017-01-21] MEDS: Atorvastatin Calcium 40 MG TAB PO SCH (22:03)
[2017-01-21] MEDS: Donepezil HCl 5 MG TAB PO SCH (22:03)
[2017-01-22] MEDS: metFORMIN 500 MG TAB PO SCH ×2 (07:42→17:09)
[2017-01-22] MEDS: Amlodipine 10 MG TAB PO SCH (08:22)
[2017-01-22] MEDS: hydrALAZINE 25 MG TAB PO SCH ×3 (08:22→20:23)
[2017-01-22] MEDS: Metoprolol Tartrate 25 MG TAB PO SCH ×2 (08:23→20:23)
[2017-01-22] MEDS: Insulin Detemir 100 UNITS/ML 40 UNITS in Pre-Filled Syringe 1 EACH SC SCH (08:24)
[2017-01-22] MEDS: NPH, Human Insulin Isophane 300 UNIT/3 ML VIAL SC SCH (08:25)
[2017-01-22] MEDS: Pioglitazone HCl 15 MG TAB PO SCH (11:35)
[2017-01-22] MEDS: Acetaminophen 325 MG TAB PO PRN (20:23)
[2017-01-22] MEDS: Atorvastatin Calcium 40 MG TAB PO SCH (20:23)
[2017-01-22] MEDS: Donepezil HCl 5 MG TAB PO SCH (20:23)
[2017-01-23] MEDS: Dextrose 50% Abboject 50 ML SYRINGE IVP PRN (00:33)
[2017-01-23] MEDS: metFORMIN 500 MG TAB PO SCH ×2 (08:03→17:18)
[2017-01-23] MEDS: hydrALAZINE 25 MG TAB PO SCH ×3 (08:04→19:58)
[2017-01-23] MEDS: Amlodipine 10 MG TAB PO SCH (08:04)
[2017-01-23] MEDS: Metoprolol Tartrate 25 MG TAB PO SCH ×2 (08:04→19:58)
[2017-01-23] MEDS: Pioglitazone HCl 15 MG TAB PO SCH (08:05)
[2017-01-23] MEDS: NPH, Human Insulin Isophane 300 UNIT/3 ML VIAL SC SCH (08:05)
[2017-01-23] MEDS: Insulin Detemir 100 UNITS/ML 30 UNITS in Pre-Filled Syringe 1 EACH SC SCH (11:28)
--- NOTE | 2017-01-23 14:16 | EKG ---
Test Reason : Blood Pressure : / mmHG Vent. Rate : 085 BPM Atrial Rate : 085 BPM P-R Int : 150 ms QRS Dur : 076 ms QT Int : 364 ms P-R-T Axes : 008 002 -06 degrees QTc Int : 433 ms Normal sinus rhythm Minimal voltage criteria for LVH, may be normal variant Inferior infarct , age undetermined Abnormal ECG Confirmed by XAVIER PEDRAZA ([id number]), medical editor VINCE PONCE ([id number]) on 01/23/2017 2:16:06 PM Referred By: KEILA Confirmed By:XAVIER PEDRAZA
[2017-01-23] MEDS: Atorvastatin Calcium 40 MG TAB PO SCH (19:57)
[2017-01-23] MEDS: Donepezil HCl 5 MG TAB PO SCH (19:58)
[2017-01-24] MEDS: Pioglitazone HCl 15 MG TAB PO SCH (07:43)
[2017-01-24] MEDS: Metoprolol Tartrate 25 MG TAB PO SCH ×2 (07:43→19:56)
[2017-01-24] MEDS: metFORMIN 500 MG TAB PO SCH ×2 (07:44→16:21)
[2017-01-24] MEDS: Amlodipine 10 MG TAB PO SCH (07:44)
[2017-01-24] MEDS: hydrALAZINE 25 MG TAB PO SCH ×3 (07:44→19:52)
[2017-01-24] MEDS: NPH, Human Insulin Isophane 300 UNIT/3 ML VIAL SC SCH (07:44)
[2017-01-24] MEDS ORDERED: Pioglitazone HCl 15 MG TAB PO SCH (09:00)
[2017-01-24] MEDS: Insulin Detemir 100 UNITS/ML 25 UNITS in Pre-Filled Syringe 1 EACH SC SCH (09:46)
[2017-01-24] MEDS: Insulin Detemir 100 UNITS/ML 30 UNITS in Pre-Filled Syringe 1 EACH SC SCH (11:23)
[2017-01-24] MEDS: Atorvastatin Calcium 40 MG TAB PO SCH (19:51)
[2017-01-24] MEDS: Donepezil HCl 5 MG TAB PO SCH (19:52)
[2017-01-25] MEDS: Pioglitazone HCl 15 MG TAB PO SCH (08:37)
[2017-01-25] MEDS: Amlodipine 10 MG TAB PO SCH (08:38)
[2017-01-25] MEDS: metFORMIN 500 MG TAB PO SCH ×2 (08:39→16:04)
[2017-01-25] MEDS: hydrALAZINE 25 MG TAB PO SCH ×3 (08:39→20:24)
[2017-01-25] MEDS: Metoprolol Tartrate 25 MG TAB PO SCH ×2 (08:40→20:25)
[2017-01-25] MEDS: NPH, Human Insulin Isophane 300 UNIT/3 ML VIAL SC SCH (08:41)
[2017-01-25] MEDS: Insulin Detemir 100 UNITS/ML 25 UNITS in Pre-Filled Syringe 1 EACH SC SCH (09:12)
[2017-01-25] MEDS: Insulin Regular 300 UNITS/3 ML VIAL SC PRN (13:36)
[2017-01-25] MEDS: Atorvastatin Calcium 40 MG TAB PO SCH (20:24)
[2017-01-25] MEDS: Donepezil HCl 5 MG TAB PO SCH (20:25)
--- NOTE | 2017-01-26 08:48 | PRG ---
DATE OF SERVICE: 01/26/2017 SUBJECTIVE: The patient had a good night. He ate all of his breakfast. He does not know who the p resident is and where he is at. There is no family here at bedside. His blood sugar is still all o serene the place. PHYSICAL EXAMINATION: GENERAL: Upon evaluation, he is awake. He is alert x2. VITAL SIGNS: Stable. NECK: Supple with no increased JVP or carotid bruit. Carotid had good upstroke with no thyromegaly . COR: Regular rate and rhythm. CHEST: Symmetrical. Clear to auscultation and percussion. ABDOMEN: Soft, nontender with normoactive bowel sounds. No bruit or organomegaly. EXTREMITIES: No edema or cyanosis. He had palpable pedal pulses. SKIN: There is no evidence of ulceration lesion, or rash. NEUROLOGIC: He is awake and somewhat alert. ASSESSMENT: 1. Dementia, on medication. 2. Hypertension. 3. Diabetes. PLAN: We are still waiting for assistance for this patient. Unfortunately, there is no medical pow er of senior trial attorney, so Dr. Baldwin will be reaching out to a mason liner or a special event assistant to see what legal matters n eed to be taken.
[2017-01-26] MEDS: Metoprolol Tartrate 25 MG TAB PO SCH ×2 (08:54→21:19)
[2017-01-26] MEDS: metFORMIN 500 MG TAB PO SCH ×2 (08:54→16:28)
[2017-01-26] MEDS: Amlodipine 10 MG TAB PO SCH (08:55)
[2017-01-26] MEDS: Insulin Detemir 100 UNITS/ML 25 UNITS in Pre-Filled Syringe 1 EACH SC SCH (08:58)
[2017-01-26] MEDS: hydrALAZINE 25 MG TAB PO SCH ×3 (08:59→21:20)
[2017-01-26] MEDS: Pioglitazone HCl 15 MG TAB PO SCH (08:59)
[2017-01-26] MEDS: NPH, Human Insulin Isophane 300 UNIT/3 ML VIAL SC SCH (09:00)
[2017-01-26] MEDS: Donepezil HCl 5 MG TAB PO SCH (21:19)
[2017-01-26] MEDS: Atorvastatin Calcium 40 MG TAB PO SCH (21:20)
[2017-01-27] MEDS: Pioglitazone HCl 15 MG TAB PO SCH (08:18)
[2017-01-27] MEDS: Metoprolol Tartrate 25 MG TAB PO SCH ×2 (08:19→20:08)
[2017-01-27] MEDS: Amlodipine 10 MG TAB PO SCH (08:19)
[2017-01-27] MEDS: metFORMIN 500 MG TAB PO SCH ×2 (08:19→16:21)
[2017-01-27] MEDS: hydrALAZINE 25 MG TAB PO SCH ×3 (08:20→20:08)
[2017-01-27] MEDS: NPH, Human Insulin Isophane 300 UNIT/3 ML VIAL SC SCH (09:20)
[2017-01-27] MEDS: Insulin Detemir 100 UNITS/ML 25 UNITS in Pre-Filled Syringe 1 EACH SC SCH (09:20)
[2017-01-27] MEDS: Donepezil HCl 5 MG TAB PO SCH (20:08)
[2017-01-27] MEDS: Atorvastatin Calcium 40 MG TAB PO SCH (20:08)
[2017-01-28] MEDS: Pioglitazone HCl 15 MG TAB PO SCH (08:25)
[2017-01-28] MEDS: metFORMIN 500 MG TAB PO SCH ×2 (08:27→16:55)
[2017-01-28] MEDS: Amlodipine 10 MG TAB PO SCH (08:27)
[2017-01-28] MEDS: hydrALAZINE 25 MG TAB PO SCH ×3 (08:30→20:49)
[2017-01-28] MEDS: Metoprolol Tartrate 25 MG TAB PO SCH ×2 (08:30→20:50)
[2017-01-28] MEDS: NPH, Human Insulin Isophane 300 UNIT/3 ML VIAL SC SCH (09:27)
[2017-01-28] MEDS: Insulin Detemir 100 UNITS/ML 25 UNITS in Pre-Filled Syringe 1 EACH SC SCH (09:27)
--- NOTE | 2017-01-28 10:40 | PRG ---
DATE OF ADMISSION: 01/28/2017 SUBJECTIVE: The patient had a good night. When talking to the nurse, apparently the patient is havi ng a hard time eating. The staff is working with him, trying to get him to eat, but sometimes he jus t does not want to eat and walking this morning, he is currently ready to eat. PHYSICAL EXAMINATION: GENERAL: Upon evaluation, he is awake. He is confused. VITAL SIGNS: Stable. NECK: Supple with no increased JVP or carotid bruit. Carotid had good upstroke with no thyromegaly. COR: Regular rate and rhythm. CHEST: Symmetrical. Clear to auscultation and percussion. ABDOMEN: Soft, nontender with normoactive bowel sounds. No bruit or organomegaly. EXTREMITIES: No edema or cyanosis. Palpable pedal pulses. SKIN: There is no evidence of ulcers, lesion, or rash. NEUROLOGIC: He is awake, but confused. ASSESSMENT: 1. Dementia, on medications. 2. Diabetes. 3. Hypertension, controlled. PLAN: The patient will continue as he is and we are still awaiting placement for this patient to go to a [facility]. This is CHRISTOPHER Winters-Ever dictating for Dr. Sher Baldwin.
[2017-01-28] MEDS: Insulin Regular 300 UNITS/3 ML VIAL SC PRN ×2 (12:25→18:28)
[2017-01-28] MEDS: Atorvastatin Calcium 40 MG TAB PO SCH (20:50)
[2017-01-28] MEDS: Donepezil HCl 5 MG TAB PO SCH (20:50)
[2017-01-29] MEDS: Insulin Regular 300 UNITS/3 ML VIAL SC PRN ×4 (01:00→21:01)
[2017-01-29] MEDS: Pioglitazone HCl 15 MG TAB PO SCH (08:01)
[2017-01-29] MEDS: Metoprolol Tartrate 25 MG TAB PO SCH ×2 (08:03→20:55)
[2017-01-29] MEDS: metFORMIN 500 MG TAB PO SCH ×2 (08:03→17:14)
[2017-01-29] MEDS: Amlodipine 10 MG TAB PO SCH (08:04)
[2017-01-29] MEDS: hydrALAZINE 25 MG TAB PO SCH ×3 (08:04→20:55)
[2017-01-29] MEDS: Insulin Detemir 100 UNITS/ML 25 UNITS in Pre-Filled Syringe 1 EACH SC SCH (08:05)
[2017-01-29] MEDS: NPH, Human Insulin Isophane 300 UNIT/3 ML VIAL SC SCH (08:53)
[2017-01-29] MEDS: Donepezil HCl 5 MG TAB PO SCH (20:55)
[2017-01-29] MEDS: Atorvastatin Calcium 40 MG TAB PO SCH (20:55)
[2017-01-30] MEDS ORDERED: Ondansetron HCl/PF 4 MG/2 ML Vial IVP PRN (10:40)
[2017-01-30] MEDS ORDERED: NPH, Human Insulin Isophane 300 UNIT/3 ML VIAL SC SCH (11:00)
[2017-01-30] MEDS ORDERED: INSULIN DETEMIR SC SCH (11:00)
[2017-01-30] MEDS: Amlodipine 10 MG TAB PO SCH (11:01)
[2017-01-30] MEDS: hydrALAZINE 25 MG TAB PO SCH ×3 (11:01→20:20)
[2017-01-30] MEDS: Metoprolol Tartrate 25 MG TAB PO SCH ×2 (11:01→20:21)
[2017-01-30] MEDS: Insulin Detemir 100 UNITS/ML 25 UNITS in Pre-Filled Syringe 1 EACH SC SCH (11:14)
[2017-01-30] MEDS: NPH, Human Insulin Isophane 300 UNIT/3 ML VIAL SC SCH (11:15)
[2017-01-30] MEDS: Pioglitazone HCl 15 MG TAB PO SCH (13:01)
[2017-01-30] MEDS: metFORMIN 500 MG TAB PO SCH ×2 (13:03→17:37)
[2017-01-30] MEDS: Insulin Regular 300 UNITS/3 ML VIAL SC PRN ×2 (17:42→21:27)
[2017-01-30] MEDS: Donepezil HCl 5 MG TAB PO SCH (20:20)
[2017-01-30] MEDS: Atorvastatin Calcium 40 MG TAB PO SCH (20:20)
[2017-01-31] MEDS: Pioglitazone HCl 15 MG TAB PO SCH (08:27)
[2017-01-31] MEDS: metFORMIN 500 MG TAB PO SCH ×2 (08:29→17:14)
[2017-01-31] MEDS: hydrALAZINE 25 MG TAB PO SCH ×3 (08:30→19:49)
[2017-01-31] MEDS: Metoprolol Tartrate 25 MG TAB PO SCH ×2 (08:30→19:50)
[2017-01-31] MEDS: Amlodipine 10 MG TAB PO SCH (08:31)
[2017-01-31] MEDS: NPH, Human Insulin Isophane 300 UNIT/3 ML VIAL SC SCH (09:25)
[2017-01-31] MEDS: Insulin Detemir 100 UNITS/ML 25 UNITS in Pre-Filled Syringe 1 EACH SC SCH (09:25)
[2017-01-31] MEDS: Insulin Regular 300 UNITS/3 ML VIAL SC PRN ×3 (12:25→19:53)
[2017-01-31] MEDS: Donepezil HCl 5 MG TAB PO SCH (19:49)
[2017-01-31] MEDS: Atorvastatin Calcium 40 MG TAB PO SCH (19:49)
[2017-02-01] MEDS: Amlodipine 10 MG TAB PO SCH (08:08)
[2017-02-01] MEDS: Pioglitazone HCl 15 MG TAB PO SCH (08:09)
[2017-02-01] MEDS: hydrALAZINE 25 MG TAB PO SCH ×3 (08:10→20:18)
[2017-02-01] MEDS: Metoprolol Tartrate 25 MG TAB PO SCH ×2 (08:10→20:18)
[2017-02-01] MEDS: metFORMIN 500 MG TAB PO SCH ×2 (08:11→19:11)
[2017-02-01] MEDS: Insulin Detemir 100 UNITS/ML 25 UNITS in Pre-Filled Syringe 1 EACH SC SCH (12:28)
[2017-02-01] MEDS: NPH, Human Insulin Isophane 300 UNIT/3 ML VIAL SC SCH (12:30)
[2017-02-01] MEDS: Insulin Regular 300 UNITS/3 ML VIAL SC PRN ×2 (12:32→18:22)
[2017-02-01] MEDS: Donepezil HCl 5 MG TAB PO SCH (20:18)
[2017-02-01] MEDS: Atorvastatin Calcium 40 MG TAB PO SCH (20:18)
--- NOTE | 2017-02-02 08:20 | PRG ---
DATE OF SERVICE: 02/02/2017 SUBJECTIVE: Patient is awake. He wakes up at 8 o'clock in the morning. He is hungry. He has not h ad breakfast. Upon evaluation, there is no family at bedside. PHYSICAL EXAMINATION: VITAL SIGNS: Stable. NECK: Supple with no increased JVP or carotid bruit. Carotid had good upstroke with no thyromegaly. COR: Regular rate and rhythm. CHEST: Symmetrical. Clear to auscultation and percussion. ABDOMEN: Soft and nontender with normoactive bowel sounds. No bruit or organomegaly. EXTREMITIES: No edema or cyanosis. Palpable pedal pulses. SKIN: There is no evidence of ulcer, lesion, or rash. NEUROLOGIC: He is awake and somewhat more alert today. ASSESSMENT: 1. Dementia. 2. Brittle diabetic. 3. Hypertension. PLAN: We are still waiting on placement of this patient who has no close family members. We will co ntinue the current medication regime right now, continue to follow. This is ILDA Winters dictating for Sher Baldwin M.D.
[2017-02-02] MEDS: metFORMIN 500 MG TAB PO SCH ×2 (08:24→17:00)
[2017-02-02] MEDS: Metoprolol Tartrate 25 MG TAB PO SCH ×2 (08:24→21:17)
[2017-02-02] MEDS: hydrALAZINE 25 MG TAB PO SCH ×3 (08:24→21:16)
[2017-02-02] MEDS: Amlodipine 10 MG TAB PO SCH (08:25)
[2017-02-02] MEDS: Pioglitazone HCl 15 MG TAB PO SCH (08:25)
[2017-02-02] MEDS: Insulin Detemir 100 UNITS/ML 25 UNITS in Pre-Filled Syringe 1 EACH SC SCH (08:27)
[2017-02-02] MEDS: Insulin Regular 300 UNITS/3 ML VIAL SC PRN ×2 (08:29→13:27)
[2017-02-02] MEDS: NPH, Human Insulin Isophane 300 UNIT/3 ML VIAL SC SCH (08:31)
[2017-02-02] MEDS: Donepezil HCl 5 MG TAB PO SCH (21:17)
[2017-02-02] MEDS: Acetaminophen 325 MG TAB PO PRN (21:17)
[2017-02-02] MEDS: Atorvastatin Calcium 40 MG TAB PO SCH (21:17)
[2017-02-03] MEDS: hydrALAZINE 25 MG TAB PO SCH ×3 (08:01→20:25)
[2017-02-03] MEDS: Metoprolol Tartrate 25 MG TAB PO SCH ×2 (08:02→20:25)
[2017-02-03] MEDS: metFORMIN 500 MG TAB PO SCH ×2 (08:02→17:14)
[2017-02-03] MEDS: Amlodipine 10 MG TAB PO SCH (08:02)
[2017-02-03] MEDS: Pioglitazone HCl 15 MG TAB PO SCH (08:03)
[2017-02-03] MEDS: Insulin Detemir 100 UNITS/ML 25 UNITS in Pre-Filled Syringe 1 EACH SC SCH (08:05)
[2017-02-03] MEDS: NPH, Human Insulin Isophane 300 UNIT/3 ML VIAL SC SCH (08:06)
[2017-02-03] MEDS: Insulin Detemir 100 UNITS/ML 20 UNITS in Pre-Filled Syringe 1 EACH SC SCH (09:05)
[2017-02-03] MEDS: Insulin Regular 300 UNITS/3 ML VIAL SC PRN (12:46)
[2017-02-03] MEDS: Donepezil HCl 5 MG TAB PO SCH (20:25)
[2017-02-03] MEDS: Acetaminophen 325 MG TAB PO PRN (20:25)
[2017-02-03] MEDS: Atorvastatin Calcium 40 MG TAB PO SCH (20:25)
[2017-02-04] MEDS: Insulin Detemir 100 UNITS/ML 20 UNITS in Pre-Filled Syringe 1 EACH SC SCH (08:42)
[2017-02-04] MEDS: Pioglitazone HCl 15 MG TAB PO SCH (08:43)
[2017-02-04] MEDS: metFORMIN 500 MG TAB PO SCH ×2 (08:44→17:43)
[2017-02-04] MEDS: hydrALAZINE 25 MG TAB PO SCH ×3 (08:44→20:46)
[2017-02-04] MEDS: Metoprolol Tartrate 25 MG TAB PO SCH ×2 (08:45→20:47)
[2017-02-04] MEDS: NPH, Human Insulin Isophane 300 UNIT/3 ML VIAL SC SCH (08:46)
[2017-02-04] MEDS: Amlodipine 10 MG TAB PO SCH (08:46)
[2017-02-04] MEDS: Insulin Regular 300 UNITS/3 ML VIAL SC PRN (12:38)
[2017-02-04] MEDS: Donepezil HCl 5 MG TAB PO SCH (20:47)
[2017-02-04] MEDS: Atorvastatin Calcium 40 MG TAB PO SCH (20:47)
[2017-02-05] MEDS: Amlodipine 10 MG TAB PO SCH (09:05)
[2017-02-05] MEDS: hydrALAZINE 25 MG TAB PO SCH ×3 (09:06→20:10)
[2017-02-05] MEDS: Metoprolol Tartrate 25 MG TAB PO SCH ×2 (09:06→20:10)
[2017-02-05] MEDS: metFORMIN 500 MG TAB PO SCH ×2 (09:06→18:00)
[2017-02-05] MEDS: Pioglitazone HCl 15 MG TAB PO SCH (09:06)
[2017-02-05] MEDS: Insulin Detemir 100 UNITS/ML 20 UNITS in Pre-Filled Syringe 1 EACH SC SCH (09:07)
[2017-02-05] MEDS: NPH, Human Insulin Isophane 300 UNIT/3 ML VIAL SC SCH (09:08)
[2017-02-05] MEDS: Insulin Regular 300 UNITS/3 ML VIAL SC PRN ×3 (12:16→20:10)
[2017-02-05] MEDS: Donepezil HCl 5 MG TAB PO SCH (20:09)
[2017-02-05] MEDS: Atorvastatin Calcium 40 MG TAB PO SCH (20:10)
[2017-02-06] MEDS: Pioglitazone HCl 15 MG TAB PO SCH (08:06)
[2017-02-06] MEDS: metFORMIN 500 MG TAB PO SCH ×2 (08:09→16:49)
[2017-02-06] MEDS: hydrALAZINE 25 MG TAB PO SCH ×3 (08:09→20:54)
[2017-02-06] MEDS: Metoprolol Tartrate 25 MG TAB PO SCH ×2 (08:09→20:54)
[2017-02-06] MEDS: Amlodipine 10 MG TAB PO SCH (08:10)
[2017-02-06] MEDS: NPH, Human Insulin Isophane 300 UNIT/3 ML VIAL SC SCH (08:11)
[2017-02-06] MEDS: Insulin Detemir 100 UNITS/ML 20 UNITS in Pre-Filled Syringe 1 EACH SC SCH (08:42)
[2017-02-06] MEDS: Insulin Detemir 100 UNITS/ML 25 UNITS in Pre-Filled Syringe 1 EACH SC SCH (10:03)
[2017-02-06] MEDS: Atorvastatin Calcium 40 MG TAB PO SCH (20:54)
[2017-02-06] MEDS: Donepezil HCl 5 MG TAB PO SCH (20:56)
[2017-02-07] MEDS: metFORMIN 500 MG TAB PO SCH ×3 (08:26→16:31)
[2017-02-07] MEDS: hydrALAZINE 25 MG TAB PO SCH ×4 (08:27→20:40)
[2017-02-07] MEDS: Pioglitazone HCl 15 MG TAB PO SCH ×2 (08:27→10:34)
[2017-02-07] MEDS: NPH, Human Insulin Isophane 300 UNIT/3 ML VIAL SC SCH ×3 (08:31→12:27)
[2017-02-07] MEDS: Amlodipine 10 MG TAB PO SCH ×2 (08:31→10:37)
[2017-02-07] MEDS: Metoprolol Tartrate 25 MG TAB PO SCH ×3 (08:31→20:40)
[2017-02-07] MEDS: Insulin Detemir 100 UNITS/ML 25 UNITS in Pre-Filled Syringe 1 EACH SC SCH ×2 (10:32→12:24)
--- NOTE | 2017-02-07 11:49 | PRG ---
DATE OF SERVICE: 02/07/2017 SUBJECTIVE: The patient is awake. He is refusing breakfast this morning. He is also refusing to lyons ve a shower and shave. We still are waiting for placement of this patient; however, there is going t o be a community engagement coordinator coming tomorrow morning to visit with him. PHYSICAL EXAMINATION: VITAL SIGNS: Blood pressure 147/78, pulse 60, temperature 97.4. NECK: Supple with no increased JVP or carotid bruit. Carotid had good upstroke with no thyromegaly. COR: Regular rate and rhythm. CHEST: Symmetrical. Clear to auscultation and percussion. ABDOMEN: Soft, nontender with normoactive bowel sounds. No bruit or organomegaly. EXTREMITIES: No edema. He had palpable pedal pulses. SKIN: There is no evidence of ulcers lesion, or rash. NEUROLOGIC: He is awake this morning somewhat alert. LABORATORY DATA: His blood sugar still over the place ranging from 57-354, this morning was 160. ASSESSMENT: 1. Brittle diabetic. 2. Dementia. 3. Hypertension. PLAN: We will continue the same current medication regime. We will wait for the court system to get involved to help us place this 71-year-old gentleman who has dementia.
[2017-02-07] MEDS: Donepezil HCl 5 MG TAB PO SCH (20:40)
[2017-02-07] MEDS: Atorvastatin Calcium 40 MG TAB PO SCH (20:40)
[2017-02-08] MEDS: hydrALAZINE 25 MG TAB PO SCH ×3 (08:51→20:52)
[2017-02-08] MEDS: Amlodipine 10 MG TAB PO SCH (08:52)
[2017-02-08] MEDS: Pioglitazone HCl 15 MG TAB PO SCH (12:37)
[2017-02-08] MEDS: Insulin Detemir 100 UNITS/ML 25 UNITS in Pre-Filled Syringe 1 EACH SC SCH (12:40)
[2017-02-08] MEDS: metFORMIN 500 MG TAB PO SCH ×2 (12:40→16:16)
[2017-02-08] MEDS: Metoprolol Tartrate 25 MG TAB PO SCH ×2 (12:41→20:52)
[2017-02-08] MEDS: NPH, Human Insulin Isophane 300 UNIT/3 ML VIAL SC SCH (12:42)
[2017-02-08] MEDS: Donepezil HCl 5 MG TAB PO SCH (20:52)
[2017-02-08] MEDS: Atorvastatin Calcium 40 MG TAB PO SCH (20:52)
[2017-02-08] MEDS: Acetaminophen 325 MG TAB PO PRN (20:53)
[2017-02-09] MEDS: metFORMIN 500 MG TAB PO SCH ×2 (08:34→16:03)
[2017-02-09] MEDS: Amlodipine 10 MG TAB PO SCH (08:35)
[2017-02-09] MEDS: hydrALAZINE 25 MG TAB PO SCH ×3 (08:35→20:35)
[2017-02-09] MEDS: Metoprolol Tartrate 25 MG TAB PO SCH ×2 (08:36→20:36)
[2017-02-09] MEDS: Pioglitazone HCl 15 MG TAB PO SCH (11:09)
[2017-02-09] MEDS: Insulin Detemir 100 UNITS/ML 25 UNITS in Pre-Filled Syringe 1 EACH SC SCH (11:13)
[2017-02-09] MEDS: NPH, Human Insulin Isophane 300 UNIT/3 ML VIAL SC SCH (11:15)
--- NOTE | 2017-02-09 15:34 | PRG ---
DATE OF SERVICE: 02/09/2017 ILDA Winters dictating for Sher Baldwin M.D. SUBJECTIVE: The patient had a good night. His appetite has still been poor at times, despite the nu rses trying to make him eat. PHYSICAL EXAMINATION: GENERAL: Upon evaluation, he is awake. He is still confused at times. VITAL SIGNS: Blood pressure 148/78, pulse 60, respirations 18, he is afebrile. NECK: Supple with no increased JVP or carotid bruit. Carotid had good upstroke with no thyromegaly. COR: Regular rate and rhythm. CHEST: Symmetrical. Clear to auscultation and percussion. ABDOMEN: Soft, nontender with normoactive bowel sounds. No bruit or organomegaly. EXTREMITIES: No edema or cyanosis. No palpable pedal pulses. SKIN: There is no evidence of ulceration, lesion, or rash. NEUROLOGIC: He is awake, but still confused x2. LABORATORY DATA: White blood sugar is still from 44-300. ASSESSMENT: 1. Brittle diabetic. 2. Dementia. 3. Hypertension, controlled. PLAN: We are still waiting on the long-term placement of this gentleman pending after we get all leg al matters resolved. We will continue all full efforts at this time as well.
[2017-02-09] MEDS: Atorvastatin Calcium 40 MG TAB PO SCH (20:35)
[2017-02-09] MEDS: Donepezil HCl 5 MG TAB PO SCH (20:35)
[2017-02-10] MEDS: metFORMIN 500 MG TAB PO SCH ×2 (07:56→16:46)
[2017-02-10] MEDS: Amlodipine 10 MG TAB PO SCH (07:57)
[2017-02-10] MEDS: hydrALAZINE 25 MG TAB PO SCH ×3 (07:57→21:05)
[2017-02-10] MEDS: Pioglitazone HCl 15 MG TAB PO SCH (07:58)
[2017-02-10] MEDS: Metoprolol Tartrate 25 MG TAB PO SCH ×2 (07:58→21:06)
[2017-02-10] MEDS: Insulin Detemir 100 UNITS/ML 25 UNITS in Pre-Filled Syringe 1 EACH SC SCH (09:47)
[2017-02-10] MEDS: NPH, Human Insulin Isophane 300 UNIT/3 ML VIAL SC SCH (09:48)
[2017-02-10] MEDS: Insulin Regular 300 UNITS/3 ML VIAL SC PRN (12:24)
[2017-02-10] MEDS: Donepezil HCl 5 MG TAB PO SCH (21:06)
[2017-02-10] MEDS: Atorvastatin Calcium 40 MG TAB PO SCH (21:06)
[2017-02-11] MEDS: hydrALAZINE 25 MG TAB PO SCH ×3 (08:21→20:12)
[2017-02-11] MEDS: metFORMIN 500 MG TAB PO SCH ×2 (08:22→17:53)
[2017-02-11] MEDS: Pioglitazone HCl 15 MG TAB PO SCH (08:24)
[2017-02-11] MEDS: Amlodipine 10 MG TAB PO SCH (08:28)
[2017-02-11] MEDS: Insulin Detemir 100 UNITS/ML 25 UNITS in Pre-Filled Syringe 1 EACH SC SCH (08:29)
[2017-02-11] MEDS: Metoprolol Tartrate 25 MG TAB PO SCH ×2 (08:29→20:19)
[2017-02-11] MEDS: NPH, Human Insulin Isophane 300 UNIT/3 ML VIAL SC SCH (08:30)
[2017-02-11] MEDS: Insulin Regular 300 UNITS/3 ML VIAL SC PRN (12:22)
[2017-02-11] MEDS: Donepezil HCl 5 MG TAB PO SCH (20:10)
[2017-02-11] MEDS: Atorvastatin Calcium 40 MG TAB PO SCH (20:10)
--- NOTE | 2017-02-11 21:42 | PRG ---
DATE OF SERVICE: 02/11/2017 SUBJECTIVE: The patient had a good night. He is still refusing to eat at times. OBJECTIVE: VITAL SIGNS: Stable 136/8, pulse 60, and respiration 18. He is afebrile. GENERAL: Upon evaluation, he is awake. NECK: Supple with no increased JVP or carotid bruit. Carotid had good upstroke with no thyromegaly. COR: Regular rate and rhythm. CHEST: Symmetrical, clear to auscultation and percussion. ABDOMEN: Soft and nontender with normoactive bowel sounds. There is no bruit or organomegaly. EXTREMITIES: No edema or cyanosis. Denies any palpable pedal pulses. SKIN: There is no evidence of ulcers, lesions or rash. NEUROLOGIC: He is awake and somewhat confused. ASSESSMENT: 1. Diabetes. 2. Hypertension. 3. Dementia. PLAN: There was a hearing regarding the patient yesterday; however, the outcome is not known, so the refore, we will continue the patient in the hospital at this time until we have a decision regarding temporary guardianship. This is CHRISTOPHER Winters-Ever, dictating for Sher Baldwin M.D.
[2017-02-12] MEDS: Dextrose 50% Abboject 50 ML SYRINGE IVP PRN (01:45)
[2017-02-12] MEDS ORDERED: NPH, Human Insulin Isophane 300 UNIT/3 ML VIAL SC SCH (09:00)
[2017-02-12] MEDS ORDERED: Insulin Detemir 100 UNITS/ML 15 UNITS in Pre-Filled Syringe 1 EACH SC SCH (09:00)
[2017-02-12] MEDS: hydrALAZINE 25 MG TAB PO SCH ×2 (09:17→18:20)
[2017-02-12] MEDS: Amlodipine 10 MG TAB PO SCH (09:17)
[2017-02-12] MEDS: Metoprolol Tartrate 25 MG TAB PO SCH (09:18)
[2017-02-12] MEDS: metFORMIN 500 MG TAB PO SCH (09:18)
[2017-02-12] MEDS: Insulin Regular 300 UNITS/3 ML VIAL SC PRN (12:32)
[2017-02-12 18:01] VITALS: BP 133/73; TEMP 97.8
== END 2017-02-12 18:32 | DRG 639 ==
LOC: ERS 04:22 → 2SW 08:30 → OBSVTOIN 12-30 14:47 → T4-B 12-31 07:44 → 2SW 12-31 07:55 → T4-B 12-31 08:19
PROVIDERS: ADMIT Specialist; ATTEND Specialist
DX: E10.649 Type 1 diabetes mellitus with hypoglycemia without coma (principal); E10.65 Type 1 diabetes mellitus with hyperglycemia; G30.9 Alzheimer's disease, unspecified; I10 Essential (primary) hypertension; F02.80 Dementia in other diseases classified elsewhere, unspecified severity, without behavioral disturbance, psychotic disturbance, mood disturbance, and anxiety; Z79.4 Long term (current) use of insulin; Z79.84 Long term (current) use of oral hypoglycemic drugs; E78.5 Hyperlipidemia, unspecified; J02.0 Streptococcal pharyngitis; Z86.73 Personal history of transient ischemic attack (TIA), and cerebral infarction without residual deficits; R07.89 Other chest pain; S00.83XA Contusion of other part of head, initial encounter; W19.XXXA Unspecified fall, initial encounter; Y92.129 Unspecified place in nursing home as the place of occurrence of the external cause
CPT/HCPCS: 36415; 36416; 70450; 71020; 71250; 72125; 80048; 80053; 80061; 81001; 81003; 82553; 83036; 83690; 84484; 84681; 85025; 87040; 87086; 87430; 93005; 93010; 96361; 96374; A4216; G8978-GP-CI; G8978-GP-CJ; G8979-GP-CI; G8980-GP-CI; G8996-GN-CI; G8997-GN-CI; J1610; J1815; J2405

== ENCOUNTER 2017-03-26 08:34 | Inpatient (IN) | payer MEDICARE ==
[2017-03-26] MEDS ORDERED: Sodium Bicarb 50 MEQ/50 ML Abboject 8.4% SYRINGE ONE ×2 (08:45→11:04)
[2017-03-26] MEDS ORDERED: Insulin Regular 300 UNITS/3 ML VIAL ONE (08:57)
[2017-03-26 09:13] LABS: pH, Arterial 6.93 (7.35-7.45)
[2017-03-26 09:14] LABS: Base Excess (BEa) -26.5 mEq/L (0 (+/-) 2.5); CO2 Tension 23.7 mmHg (35.0-45.0); Hematocrit-ABG 41.8 % (42.0-52.0); Hemoglobin (Hb) 12.6 g/dL (14.0-18.0); O2 Tension (PaO2) 279.3 mmHg (80.0-100.0)
--- NOTE | 2017-03-26 09:14 | RAD ---
SINGLE VIEW OF THE CHEST: COMPARISON: 12/06/16. HISTORY: Intubated with diabetic ketoacidosis and altered mental status. FINDINGS: A single view of the chest shows a normal-size cardiomediastinal silhouette. The endotracheal tube i s seen with its tip between the clavicles. There is a central venous catheter with its tip in the roy perior vena cava. There is no evidence of consolidation, mass, or pleural effusion. IMPRESSION: No evidence of acute cardiopulmonary disease. POS: [facility]
[2017-03-26 09:15] LABS: ALV-art Gradient 47.575 (0-20); Analyzer IN Cardio ER; Calcium, Ionized 1.3 mmol/L (1.12-1.30); Puncture Site RRA
[2017-03-26 09:16] LABS: Actual Bicarbonate (HCO3a) 4.8 mEq/L (22-26)
[2017-03-26 09:38] LABS: #Monocytes 0.1 thou/uL (0.11-0.59); #Neutrophils 7.1 thou/uL (1.40-6.50); %Basophils 0.4 % (0.0-1.0); %Eosinophils 0.2 % (0.0-10.0); %Lymphocytes 21.4 % (21.0-51.0); %Monocytes 1.2 % (0.0-10.0); %Neutrophils 76.8 % (42.0-75.0); Hemoglobin 11.9 g/dL (14.0-18.0); Mean Corpuscular HGB CONC 30.6 g/dL (32.0-36.0); Mean Corpuscular Hemoglobin 32.7 pg (27.0-31.0); Mean Platelet Volume 7.8 fL (7.4-10.4); Platelet Count 388 thou/uL (130-400); RBC Distribution Width 14.6 % (11.5-14.5); Red Blood Cell (RBC) Count 3.64 mill/uL (4.70-6.10); White Blood Cell (WBC) Count 9.3 thou/uL (4.8-10.8)
[2017-03-26 09:44] LABS: INR-International Normal Ratio 1.1; Prothrombin Time 14.8 SEC (12.0-14.7)
[2017-03-26 09:55] LABS: CKMB 1.9 ng/mL (0-6.6); Troponin I 0.018 ng/mL (< 0.028)
[2017-03-26 09:57] LABS: ALT (SGPT) 16 U/L (8-55); AST (SGOT) 9 U/L (5-34); Albumin 3.5 g/dL (3.4-4.8); Alkaline Phosphatase 121 U/L (40-150); BUN (Urea Nitrogen) 62 mg/dL (8.4-25.7); Bilirubin, Total 0.3 mg/dL (0.2-1.2); CK (CPK) 39 U/L (30-200); Calc. Creatinine Clearance 0 mL/min (70-130); Calcium 8.7 mg/dL (7.8-10.44); Chloride 101 mmol/L (98-107); Estimated GFR-MDRD 20; Globulin 2.2 g/dL (2.4-3.5); Lipase 19 U/L (8-78); Magnesium 2.6 mg/dL (1.6-2.6); Potassium 5.2 mmol/L (3.5-5.1); Protein, Total 5.7 g/dL (5.8-8.1); Sodium 142 mmol/L (136-145)
[2017-03-26 09:59] LABS: Carbon Dioxide Less than 8 mmol/L (23-31); Glucose 1102 mg/dL (80-115); Phosphorus 11.9 mg/dL (2.3-4.7)
[2017-03-26 10:21] LABS: PTT 22.3 SEC (22.9-36.1)
[2017-03-26] MEDS ORDERED: Lorazepam 2 MG/ML VIAL ONE (10:56)
[2017-03-26 11:04] LABS: Bilirubin Small (Negative); Blood, Urine Negative (Negative); Glucose, Urine (Dipstick) >=1000 mg/dL (Negative); Leukocyte Negative (Negative); Nitrite Negative (Negative); Protein, Urine (Dipstick) Trace mg/dL (Neg-Trace); Urobilinogen 0.2 mg/dL (0.2-1.0); pH, Urine 5.5 (5.0-9.0)
[2017-03-26 11:06] LABS: Clarity HAZY (Clear)
[2017-03-26] MEDS ORDERED: cefTRIAXone\\ROCEPHIN 1 GM in Sodium Chloride 0.9% 100 ML IVPB SCH (11:45)
[2017-03-26] MEDS ORDERED: Albumin 5% 250 ML ONE (11:49)
[2017-03-26] MEDS ORDERED: Sodium Bicarb 50 MEQ/50 ML Abboject 8.4% SYRINGE IVP SCH ×2 (12:00→13:00)
[2017-03-26] MEDS ORDERED: Sodium Chloride 0.9% 1,000 ML IV PRN ×4 (12:27)
[2017-03-26] MEDS ORDERED: NS 0.9% w/ 20 MEQ KCL 1,000 ML/1,000 ML BAG IV PRN ×2 (12:27)
[2017-03-26] MEDS ORDERED: fentaNYL Citrate/PF 2,000 MCG in Sodium Chloride 0.9% 60 ML IV SCH (12:27)
[2017-03-26] MEDS ORDERED: Morphine 2 MG/ML SYRINGE SLOW IVP PRN (12:27)
[2017-03-26] MEDS ORDERED: Dextrose 5 %-0.45 % NaCl 1,000 ML IV PRN (12:27)
[2017-03-26] MEDS ORDERED: Lorazepam 2 MG/ML VIAL SLOW IVP PRN (12:27)
[2017-03-26] MEDS ORDERED: Dextrose 5% in Water 1,000 ML IV PRN (12:27)
[2017-03-26] MEDS ORDERED: Propofol 1,000 MG/100 ML VIAL IV PRN (12:27)
[2017-03-26] MEDS ORDERED: Magnesium Oxide 400 MG TAB PO PRN ×2 (12:28)
[2017-03-26] MEDS ORDERED: Dextrose 50% Abboject 50 ML SYRINGE SLOW IVP PRN (12:28)
[2017-03-26] MEDS ORDERED: Potassium Phosphate 15 MMOL in Sodium Chloride 0.9% 250 ML 250 ML IV PRN (12:28)
[2017-03-26] MEDS ORDERED: CCU ELECTROLYTE REPLACEMENT PROTOCOL FS PRN (12:28)
[2017-03-26] MEDS ORDERED: Potassium Chloride 40 MEQ in Sodium Chloride 0.9% 250 ML 250 ML IVPB PRN (12:28)
[2017-03-26] MEDS ORDERED: Magnesium 2 GM/NS 0.9% 100 ML 2 GM in Premix Bag 1 BAG IVPB PRN (12:28)
[2017-03-26] MEDS ORDERED: Potassium Phosphate 12 MMOL in Sodium Chloride 0.9% 250 ML 250 ML IV PRN (12:28)
[2017-03-26] MEDS ORDERED: Potassium Phosphate 9 MMOL in Sodium Chloride 0.9% 100 ML IVPB PRN (12:28)
[2017-03-26] MEDS ORDERED: Potassium Chloride 20 MEQ TAB PO PRN (12:28)
[2017-03-26 12:29] LABS: pH, Arterial 7.32 (7.35-7.45)
[2017-03-26] MEDS ORDERED: Ondansetron HCl/PF 4 MG/2 ML Vial SLOW IVP PRN (12:29)
[2017-03-26] MEDS ORDERED: hydrALAZINE 20 MG/ML VIAL SLOW IVP PRN (12:29)
[2017-03-26] MEDS ORDERED: Acetaminophen 650 MG Suppository PR PRN (12:29)
[2017-03-26 12:30] LABS: Actual Bicarbonate (HCO3a) 7.3 mEq/L (22-26); Base Excess (BEa) -16.4 mEq/L (0 (+/-) 2.5); CO2 Tension 14.4 mmHg (35.0-45.0); Calcium, Ionized 1.2 mmol/L (1.12-1.30); Hemoglobin (Hb) 10.2 g/dL (14.0-18.0); Puncture Site LRA
[2017-03-26] MEDS ORDERED: Insulin Regular 300 UNITS/3 ML VIAL IVP SCH (12:30)
[2017-03-26 12:35] LABS: Base Excess-Venous -29.6 mmol/L (-30.0-30.0); Bicarbonate (HCO3v) 5.4 mmol/L (1.0-85.0); CO2 Tension (PvCO2) 38.1 mmHg (41.0-51.0); Lactate 5.79 mmol/L (0.50-2.20); O2 Tension (PvO2) 66.2 mmHg (35.0-45.0); Potassium 4.5 mmol/L (3.4-4.7); T. Carbon Dioxide 6.6 mmol/L (1.0-85.0); pH (Venous) 6.762 (7.35-7.45); vO2 Saturation-calc 66.7 % (0.0-100.0)
[2017-03-26 12:35] LABS: Base Excess-Venous -28.5 mmol/L (-30.0-30.0); Bicarbonate (HCO3v) 3.8 mmol/L (1.0-85.0); CO2 Tension (PvCO2) 20.6 mmHg (41.0-51.0); Calcium, Ionized 1.09 mmol/L (1.12-1.32); Hemoglobin - Calc 14.3 g/dL (12.0-18.0); Lactate 4.12 mmol/L (0.50-2.20); O2 Tension (PvO2) 153.8 mmHg (35.0-45.0); Potassium 5.8 mmol/L (3.4-4.7); T. Carbon Dioxide 4.5 mmol/L (1.0-85.0); vO2 Saturation-calc 97.1 % (0.0-100.0)
[2017-03-26 12:52] LABS: Glucose Accucheck Confirmation 854 mg/dl (80-115)
[2017-03-26 13:22] LABS: Lactic Acid 3.8 mmol/L (0.5-2.2)
[2017-03-26] MEDS: cefTRIAXone\\ROCEPHIN 1 GM, Syringe 0.4 ML in Sterile Water 9.6 ML SLOW IVP SCH (13:31)
[2017-03-26] MEDS: Sodium Chloride 0.9% 1,000 ML IV SCH ×3 (13:33→22:35)
--- NOTE | 2017-03-26 14:50 | HP ---
CHIEF COMPLAINT: Diabetic ketoacidosis and respiratory failure. HISTORY OF PRESENT ILLNESS: The patient is a 71-year-old male who resides in the Dementia/ Alzheimer's Unit at [facility]. There, he has been known to have brittle diabetes for qu ite some time. His sugars were supposed to be closely monitored with a proper sliding scale, showed that his sugars are elevated above 200. The nurse at the care home noticed that the patient becam e lethargic and less responsive such that she called the EMS to transport him. En route, EMS noted t he patient began having agonal respirations at which point the rapid sequence intubated him en route. On arrival to [facility], his pH was noted to be 6.9, blood sugar fingerstick was re ad high. He was placed on the ventilator and eventually the blood sugar returned at 1102. Fluid res uscitation and insulin drip have been begun. His core temperature was 95, so a warming blanket has b een placed on him as well. He is still unresponsive at the time of this exam and there has been no f ever, nausea, vomiting, diarrhea noted by the care home nurses those who took care of him. PAST MEDICAL HISTORY: Significant for the aforementioned very brittle insulin-dependent diabetes. Elizabeth ruiz has had dementia and a guardian has been placed by the court to take care of him. He has dyslipide romy, heart failure, TIAs, history of toxic encephalopathy and hypertension. PAST SURGICAL HISTORY: Includes surgery on his right hip. SOCIAL HISTORY: Denies alcohol, drug use or smoking. ALLERGIES: To PENICILLIN. MEDICATIONS ON ADMISSION: Include daily aspirin 81 mg, atorvastatin 80 mg, Humulin N 8 units subcu i n the morning, Lipitor 40 mg at bedtime, Prandin 1 mg q. daily before food, Levemir 15 units subcu a. m., metoprolol tartrate 25 mg b.i.d., Protonix 40 mg daily, hydralazine 50 mg t.i.d., metformin 1000 mg q. day, Norvasc 10 mg q. day and hydralazine 50 mg t.i.d. REVIEW OF SYSTEMS: Obtained from nursing care. General: There is no history of fever, vomiting, di arrhea or any type of prostration. HEENT: The patient not noted to have any visual issues or lesion s on his face. Chest: There was no history of coughing or dyspnea. Heart: There were no complaint s of chest pain, also no palpitations noted. Abdomen: No complaints of abdominal pain, no blood not ed in urine or stool. Musculoskeletal: No limited ranges of motion or evidence of pain, swelling or guarding on any of his extremities. Skin: No new rashes or lesions. Neurologic: At his baseline, confusion, dementia and sometimes with agitation. PHYSICAL EXAMINATION: GENERAL: At the time of admission, he is intubated, sedated and unresponsive. VITAL SIGNS: Blood pressure 154/94, pulse 110. He states his temperature has gradually crept up to 96. HEENT: Pupils are equal, round at 3 mm each with minimal reactivity to light. TMs clear. Nares milton ar. Pharynx with intubation to be noted. No other lesions noted. CHEST: With good breath sounds bilaterally. HEART: Regular rate and rhythm, tachycardic. ABDOMEN: Soft, unable to appreciate organomegaly. GENITOURINARY: Normal male. [place] in place. EXTREMITIES: Without clubbing, cyanosis, or edema noted. SKIN: Without any rashes or lesions. NEUROLOGIC: Unable to test neurological function any further than this at this time other than Jordan ski is down. Knee jerks are 1+ bilaterally, not responding to pain. LABORATORY AND X-RAY FINDINGS: Lab work on admission showed WBC is 9.3, hemoglobin 11.9, hematocrit 38.9 and platelets at 388. Sodium 142, potassium elevated at 5.2, chloride 101, CO2 less than 8, BUN 62, creatinine 3.05 with a glucose of 1102. PH of 6.93, pCO2 of 23 and pO2 of 279. Chest x-ray graec ws no acute process. ASSESSMENT: 1. Respiratory failure. 2. Diabetic ketoacidosis. 3. Chronic kidney disease with acute injury secondary to dehydration. 4. Alzheimer's type dementia. 5. Dyslipidemia. 6. Hypertension. 7. Hyperphosphatemia with a phosphate level of 11.9. 8. Hypothermia. PLAN: The patient will be going into ICU where insulin drip will be maintained. Electrolyte protoco ls are placed to help lower his phosphorus. Lactate 4.1. Electrolyte protocols are placed. Intensi vist will assist with ventilation settings and management. We will serially reevaluate him and keep him hydrated and warm him up since he also has hypothermia, so warming blanket will be continued to b e utilized until his core temperature normalizes.
[2017-03-26 15:26] LABS: Glucose Accucheck Confirmation 729 mg/dl (80-115)
[2017-03-26 16:13] VITALS: BMI 21.8
[2017-03-26 16:19] LABS: Lactic Acid 3.4 mmol/L (0.5-2.2)
[2017-03-26 16:26] LABS: Glucose Accucheck Confirmation 616 mg/dl (80-115)
[2017-03-26 19:39] LABS: Anion Gap 21 mmol/L (10-20); BUN (Urea Nitrogen) 54 mg/dL (8.4-25.7); Calc. Creatinine Clearance 26 mL/min (70-130); Calcium 8.6 mg/dL (7.8-10.44); Carbon Dioxide 22 mmol/L (23-31); Chloride 116 mmol/L (98-107); Estimated GFR-MDRD 25; Glucose 304 mg/dL (80-115); Sodium 156 mmol/L (136-145)
[2017-03-26 19:45] LABS: Potassium 2.8 mmol/L (3.5-5.1)
[2017-03-26] MEDS: Pantoprazole 40 MG VIAL IVP SCH (20:01)
[2017-03-26] MEDS: Insulin Detemir 100 UNITS/ML 10 UNITS in Pre-Filled Syringe 1 EACH SC SCH (20:01)
[2017-03-26] MEDS: Potassium Chloride 40 MEQ in Premix Bag 1 BAG IVPB PRN (20:04)
[2017-03-26] MEDS: D5 1/2 NS w/20 mEq KCL 1,000 ML IV PRN (21:06)
--- NOTE | 2017-03-26 22:50 | CON ---
DATE OF CONSULTATION: 03/26/2017 HISTORY OF PRESENT ILLNESS: This is a 71-year-old gentleman, intubated on the vent, who presented to the ER with mental status change and markedly elevated blood sugar, marked diabetic ketoacidosis, me tabolic acidosis. Apparently, we tried to contact the family members. Apparently, we tried to contact family members, apparently the state has legal issues. He has no family members to contact. PAST MEDICAL HISTORY: Pertinent for uncontrolled diabetes, TIA, encephalopathy, hypertension. SOCIAL HISTORY: Lives in a long-term facility at [facility]. Apparently, there is no his tory of alcohol or tobacco abuse. ALLERGIES: PENICILLIN. prison records were obtained upon arrival. MEDICATIONS: From his previous admission by his primary care physician is to note including aspirin, atorvastatin 40, lisinopril 20, metformin 500 twice a day, Levemir 20, Prilosec 20, hydralazine 25. ALLERGIES: PENICILLIN. PAST SURGICAL HISTORY: Includes hip surgery. PHYSICAL EXAMINATION: VITAL SIGNS: His blood pressure is 70/80 he received 4 liters of fluid. Pulse 98, sats are 100%, re spirations 15. CHEST: Decreased breath sounds. No wheezing. CARDIOVASCULAR: Normal S1, S2. ABDOMEN: Soft. No masses. LABORATORY DATA AND IMAGING: Chest x-ray was clear. White count 9000, H&H 11 and 38, platelet count 38. Electrolytes are normal. Creatinine is 3, BUN 62, bicarbonate was 8, phos is 11, lactic acid 4 .1, pO2 was 279, pCO2 33, pH 7.69, rate of 20, 50, 500. ASSESSMENT AND PLAN: 1. Acute on chronic respiratory failure. 2. Uncontrolled diabetes. 3. Encephalopathy and transient ischemic attack. 4. State custody. Plasmanate has been given. Continue IV fluids 200 an hour. Start insulin. We will follow while in the ICU. Nutrition in the next 24 to 48 hours. Empiric broad-spectrum antib iotics. Forty-five minutes critical care time.
[2017-03-27 00:52] LABS: Potassium 3.1 mmol/L (3.5-5.1)
[2017-03-27] MEDS: Potassium Chloride 40 MEQ in Premix Bag 1 BAG IVPB PRN ×2 (01:01→06:10)
[2017-03-27] MEDS: D5 1/2 NS w/20 mEq KCL 1,000 ML IV PRN ×2 (01:22→05:02)
[2017-03-27] MEDS: Sodium Chloride 0.9% 1,000 ML IV SCH ×3 (04:06→13:50)
[2017-03-27 05:49] LABS: #Lymphocytes 1.3 thou/uL (1.20-3.40); #Monocytes 0.4 thou/uL (0.11-0.59); #Neutrophils 5.9 thou/uL (1.40-6.50); %Basophils 0.3 % (0.0-1.0); %Eosinophils 0.1 % (0.0-10.0); %Lymphocytes 17.1 % (21.0-51.0); %Monocytes 4.8 % (0.0-10.0); %Neutrophils 77.8 % (42.0-75.0); Hemoglobin 10.1 g/dL (14.0-18.0); Mean Corpuscular HGB CONC 33.9 g/dL (32.0-36.0); Mean Corpuscular Hemoglobin 32.3 pg (27.0-31.0); Mean Corpuscular Volume 95.2 fl (80.0-94.0); Mean Platelet Volume 6.8 fL (7.4-10.4); Platelet Count 235 thou/uL (130-400); RBC Distribution Width 14.1 % (11.5-14.5); Red Blood Cell (RBC) Count 3.14 mill/uL (4.70-6.10); White Blood Cell (WBC) Count 7.6 thou/uL (4.8-10.8)
[2017-03-27 05:58] LABS: Anion Gap 12 mmol/L (10-20); BUN (Urea Nitrogen) 47 mg/dL (8.4-25.7); Calc. Creatinine Clearance 33 mL/min (70-130); Calcium 8.5 mg/dL (7.8-10.44); Carbon Dioxide 25 mmol/L (23-31); Chloride 123 mmol/L (98-107); Estimated GFR-MDRD 33; Glucose 161 mg/dL (80-115); Potassium 3.4 mmol/L (3.5-5.1); Sodium 157 mmol/L (136-145)
[2017-03-27 07:10] LABS: Actual Bicarbonate (HCO3a) 21.3 mEq/L (22-26); CO2 Tension 21.3 mmHg (35.0-45.0); O2 Tension (PaO2) 189.2 mmHg (80.0-100.0); pH, Arterial 7.62 (7.35-7.45)
[2017-03-27 07:11] LABS: ALV-art Gradient 67.375 (0-20); Calcium, Ionized 1.2 mmol/L (1.12-1.30); Hematocrit-ABG 23.4 % (42.0-52.0); Hemoglobin (Hb) 9.8 g/dL (14.0-18.0); Puncture Site RR
--- NOTE | 2017-03-27 08:18 | RAD ---
CHEST 1 VIEW: Date: 03/27/17 HISTORY: 71-year-old male with respiratory insufficiency. FINDINGS: Life support tubes remain in place and unchanged and stable. Patchy increased linear and interstitial markings bilaterally, evidence for some stable chronic lung change. No confluent pneumonia or overt edema. IMPRESSION: Stable chest. No significant acute process. POS: [facility]
[2017-03-27] MEDS ORDERED: Sodium Bicarbonate Tab 325 MG TAB PER TUBE PRN (08:35)
[2017-03-27] MEDS ORDERED: Pancrelipase DR 12000 1 CAP FS PRN (08:35)
[2017-03-27] MEDS: Insulin Detemir 100 UNITS/ML 10 UNITS in Pre-Filled Syringe 1 EACH SC SCH ×3 (09:00→20:39)
[2017-03-27] MEDS ORDERED: Prevnar 13-Val Conj/PF 0.5 ML SYRINGE IM ONE (09:00)
[2017-03-27] MEDS ORDERED: FLU VACC TS2017-18 (>65YR) 0.5 ML SYRINGE IM ONE (09:00)
[2017-03-27] MEDS ORDERED: DC Sedation Protocol FS ONE (10:32)
[2017-03-27] MEDS: Dextrose 5% in Water 1,000 ML IV SCH ×2 (10:45→20:43)
[2017-03-27 11:40] LABS: Anion Gap 14 mmol/L (10-20); BUN (Urea Nitrogen) 40 mg/dL (8.4-25.7); Calc. Creatinine Clearance 35 mL/min (70-130); Calcium 8.5 mg/dL (7.8-10.44); Carbon Dioxide 23 mmol/L (23-31); Chloride 123 mmol/L (98-107); Estimated GFR-MDRD 35; Glucose 262 mg/dL (80-115); Potassium 4.2 mmol/L (3.5-5.1); Sodium 156 mmol/L (136-145)
[2017-03-27] MEDS: Insulin Regular 300 UNITS/3 ML VIAL SC PRN ×3 (12:38→15:25)
[2017-03-27] MEDS: cefTRIAXone\\ROCEPHIN 1 GM, Syringe 0.4 ML in Sterile Water 9.6 ML SLOW IVP SCH (13:10)
--- NOTE | 2017-03-27 19:13 | PRG ---
DATE OF SERVICE: 03/27/2017 SUBJECTIVE: Mr. Libertad Dougherty is intubated on the vent. He is sedated. OBJECTIVE: VITAL SIGNS: His blood pressure is 130/80, pulse 74, respirations 30 and sats 100%. His I's and O's are 4761 in and 1912 out. CHEST: Decreased breath sounds. No wheezing. CARDIAC: Normal S1, S2. No gallops. ABDOMEN: Soft. No masses. NEUROLOGIC: Neurologically, sedated. LABORATORY DATA: His white count is 7000, hemoglobin and hematocrit 10 and 29, platelet count is 235 . PO2 is 189, pCO2 is 21, pH 7.62, marked respiratory acidosis. His bicarbonate is 21. His sodium was apparently 157 on his lab. Phosphorus was low. IMPRESSION: 1. Respiratory failure. 2. Encephalopathy. 3. Diabetic ketoacidosis. 4. Electrolyte imbalance. 5. Diabetes. 6. Poor compliance. PLAN: Hold sedation, CPAP trial, wean when stable. One-half hour critical care time. We will follow.
[2017-03-27] MEDS: Pantoprazole 40 MG VIAL IVP SCH (20:39)
[2017-03-28] MEDS: Dextrose 5% in Water 1,000 ML IV SCH ×3 (05:34→20:33)
[2017-03-28 05:38] LABS: #Lymphocytes 2.2 thou/uL (1.20-3.40); #Monocytes 0.4 thou/uL (0.11-0.59); #Neutrophils 6.6 thou/uL (1.40-6.50); %Basophils 0.4 % (0.0-1.0); %Eosinophils 0.3 % (0.0-10.0); %Lymphocytes 23.5 % (21.0-51.0); %Monocytes 4.7 % (0.0-10.0); Hemoglobin 11.2 g/dL (14.0-18.0); Mean Corpuscular HGB CONC 33.4 g/dL (32.0-36.0); Mean Corpuscular Hemoglobin 32.4 pg (27.0-31.0); Mean Platelet Volume 7.2 fL (7.4-10.4); Platelet Count 186 thou/uL (130-400); RBC Distribution Width 14.3 % (11.5-14.5); Red Blood Cell (RBC) Count 3.47 mill/uL (4.70-6.10); White Blood Cell (WBC) Count 9.3 thou/uL (4.8-10.8)
[2017-03-28 05:53] LABS: Anion Gap 12 mmol/L (10-20); BUN (Urea Nitrogen) 26 mg/dL (8.4-25.7); Calc. Creatinine Clearance 56 mL/min (70-130); Calcium 8.9 mg/dL (7.8-10.44); Carbon Dioxide 33 mmol/L (23-31); Chloride 111 mmol/L (98-107); Estimated GFR-MDRD 58; Glucose 103 mg/dL (80-115); Phosphorus 2.5 mg/dL (2.3-4.7); Potassium 3.2 mmol/L (3.5-5.1); Sodium 153 mmol/L (136-145)
[2017-03-28] MEDS: Potassium Chloride 40 MEQ in Premix Bag 1 BAG IVPB PRN (05:58)
[2017-03-28] MEDS: Insulin Detemir 100 UNITS/ML 10 UNITS in Pre-Filled Syringe 1 EACH SC SCH (08:32)
--- NOTE | 2017-03-28 09:33 | RAD ---
SEMIUPRIGHT PORTABLE CHEST 1 VIEW: Date: 03/28/17 HISTORY: 71-year-old male with respiratory insufficiency. \ FINDINGS: Left subclavian catheter. NG tube and endotracheal tubes have been removed. No acute intrathoracic di sease. IMPRESSION: Removal of the NG tube and endotracheal tubes. No significant acute intrathoracic disease. POS: [facility]
[2017-03-28] MEDS ORDERED: Acetaminophen 325 MG TAB PO PRN (09:57)
--- NOTE | 2017-03-28 14:07 | PRG ---
DATE OF SERVICE: 03/28/2017 SUBJECTIVE: The patient is more responsive, no longer hypertensive. PHYSICAL EXAMINATION: VITAL SIGNS: Blood pressure 140/70, sats 100% on room air, respirations 18. I's and O's 345 in and 97 out. CHEST: No wheezing. CARDIAC: Normal S1 and S2. No gallops. LABORATORY DATA: White count 9,000, hemoglobin and hematocrit 11 and 33, platelet count normal. Sod ium is still high 153, BUN is 26, and creatinine 1.2. ASSESSMENT AND PLAN: 1. Uncontrolled diabetes. Metabolic acidosis is much improved. 2. Still may be slightly prerenal. PLAN: Continue aggressive hydration. Discontinue antibiotics. Discontinue serial lab. Continue insulin. Once it was stable, we can transfer back to the [facility].
[2017-03-28] MEDS ORDERED: Promethazine HCl 25 MG/ML VIAL SLOW IVP PRN (15:03)
[2017-03-28] MEDS: Metoprolol Tartrate 25 MG TAB PO SCH (20:38)
[2017-03-28] MEDS: Insulin Regular 300 UNITS/3 ML VIAL SC PRN (20:38)
[2017-03-28] MEDS ORDERED: Atorvastatin Calcium 40 MG TAB PO SCH (21:00)
[2017-03-29 03:43] VITALS: BP 140/78; TEMP 98
[2017-03-29] MEDS: Dextrose 5% in Water 1,000 ML IV SCH (05:40)
[2017-03-29] MEDS ORDERED: Insulin Detemir 100 UNITS/ML 15 UNITS in Pre-Filled Syringe 1 EACH SC SCH (09:00)
[2017-03-29] MEDS: Metoprolol Tartrate 25 MG TAB PO SCH (09:35)
[2017-03-29 14:41] LABS: Glucose Greater than 700.0 mg/dL (70-105)
[2017-03-29 14:43] LABS: Glucose Greater than 700.0 mg/dL (70-105)
== END 2017-03-29 10:35 | DRG 208 ==
LOC: ERS 08:34 → CCU 11:25 → T4-B 03-28 14:35 → 2NO 03-28 18:42
PROVIDERS: ADMIT Specialist; ATTEND Specialist
PROC: 5A1945Z Respiratory Ventilation, 24-96 Consecutive Hours (ICD-10-PCS; principal; 2017-03-26)
PROC: 0BH17EZ Insertion of Endotracheal Airway into Trachea, Via Natural or Artificial Opening (ICD-10-PCS; 2017-03-26)
DX: J96.20 Acute and chronic respiratory failure, unspecified whether with hypoxia or hypercapnia (principal); E10.10 Type 1 diabetes mellitus with ketoacidosis without coma; G93.40 Encephalopathy, unspecified; N17.9 Acute kidney failure, unspecified; G30.9 Alzheimer's disease, unspecified; F02.80 Dementia in other diseases classified elsewhere, unspecified severity, without behavioral disturbance, psychotic disturbance, mood disturbance, and anxiety; T68.XXXA Hypothermia, initial encounter; E87.8 Other disorders of electrolyte and fluid balance, not elsewhere classified; E86.0 Dehydration; E83.39 Other disorders of phosphorus metabolism; E78.5 Hyperlipidemia, unspecified; I10 Essential (primary) hypertension; Z79.4 Long term (current) use of insulin; Z86.73 Personal history of transient ischemic attack (TIA), and cerebral infarction without residual deficits; Z79.82 Long term (current) use of aspirin; Z91.19 Patient's noncompliance with other medical treatment and regimen
CPT/HCPCS: 36415; 36416; 36556; 51702; 71045; 80048; 80053; 81003; 82010; 82330; 82553; 82803; 82805; 83605; 83690; 83735; 84100; 84484; 85025; 85610; 85730; 87040; 87086; 93005; 93010; 94002; 94003; 96361; 96365; 96375; 96376; 99292; A4216; C9113; J0696; J1815; J2060; J2405; J2550; J3010; J3480; J7050; P9045

== ENCOUNTER 2017-05-22 11:16 | Emergency (ER) | payer MEDICARE ==
[2017-05-22 11:49] LABS: #Basophils 0.1 thou/uL (0.0-0.2); #Eosinphils 0.1 thou/uL (0.0-0.7); #Lymphocytes 2.1 thou/uL (1.20-3.40); #Monocytes 0.6 thou/uL (0.11-0.59); #Neutrophils 6.6 thou/uL (1.40-6.50); %Basophils 0.9 % (0.0-1.0); %Eosinophils 0.8 % (0.0-10.0); %Lymphocytes 22.5 % (21.0-51.0); %Neutrophils 69.8 % (42.0-75.0); Hemoglobin 11.2 g/dL (14.0-18.0); Mean Corpuscular HGB CONC 33.8 g/dL (32.0-36.0); Mean Corpuscular Hemoglobin 32.1 pg (27.0-31.0); Mean Corpuscular Volume 94.9 fl (80.0-94.0); Mean Platelet Volume 6.4 fL (7.4-10.4); Platelet Count 346 thou/uL (130-400); RBC Distribution Width 13.7 % (11.5-14.5); Red Blood Cell (RBC) Count 3.49 mill/uL (4.70-6.10); White Blood Cell (WBC) Count 9.5 thou/uL (4.8-10.8)
[2017-05-22 12:15] LABS: CKMB 2.8 ng/mL (0-6.6); Troponin I Less than 0.010 ng/mL (< 0.028)
[2017-05-22 12:20] LABS: ALT (SGPT) 8 U/L (8-55); AST (SGOT) 7 U/L (5-34); Albumin 3.7 g/dL (3.4-4.8); Alkaline Phosphatase 187 U/L (40-150); Anion Gap 16 mmol/L (10-20); BUN (Urea Nitrogen) 17 mg/dL (8.4-25.7); Bilirubin, Total 0.5 mg/dL (0.2-1.2); CK (CPK) 44 U/L (30-200); Calc. Creatinine Clearance 0 mL/min (70-130); Calcium 8.9 mg/dL (7.8-10.44); Carbon Dioxide 24 mmol/L (23-31); Chloride 96 mmol/L (98-107); Estimated GFR-MDRD 72; Globulin 2.2 g/dL (2.4-3.5); Glucose 474 mg/dL (80-115); Lipase 33 U/L (8-78); Potassium 4.2 mmol/L (3.5-5.1); Protein, Total 5.9 g/dL (5.8-8.1); Sodium 132 mmol/L (136-145)
[2017-05-22 12:32] LABS: Bicarbonate (HCO3v) 24.8 mmol/L (1.0-85.0); CO2 Tension (PvCO2) 40.1 mmHg (41.0-51.0); Calcium, Ionized 1.07 mmol/L (1.12-1.32); Hemoglobin - Calc 11.3 g/dL (12.0-18.0); O2 Tension (PvO2) 36.2 mmHg (35.0-45.0); Potassium 3.7 mmol/L (3.4-4.7); pH (Venous) 7.399 (7.35-7.45); vO2 Saturation-calc 69.4 % (0.0-100.0)
[2017-05-22 13:22] LABS: Bilirubin Negative (Negative); Blood, Urine Negative (Negative); Clarity CLEAR (Clear); Glucose, Urine (Dipstick) >=1000 mg/dL (Negative); Leukocyte Negative (Negative); Nitrite Negative (Negative); Protein, Urine (Dipstick) Negative (Neg-Trace); Specific Gravity, Urine 1.025 (1.002-1.036)
--- NOTE | 2017-05-22 13:24 | RAD ---
PORTABLE CHEST: Date: 05/22/17 HISTORY: Patient fell at [facility] with diffuse pain. COMPARISON: 03/28/17 study. FINDINGS: Heart size is borderline. There are atherosclerotic changes of the aorta. There are chronic lung sharif ges seen. No focal infiltrates. The bones are demineralized. IMPRESSION: No active intrathoracic disease. POS: [facility]
--- NOTE | 2017-05-29 12:36 | EKG ---
Test Reason : FALL Blood Pressure : / mmHG Vent. Rate : 071 BPM Atrial Rate : 071 BPM P-R Int : 168 ms QRS Dur : 078 ms QT Int : 404 ms P-R-T Axes : 050 008 -01 degrees QTc Int : 439 ms Sinus rhythm with occasional Premature ventricular complexes T wave abnormality, consider lateral ischemia Abnormal ECG Confirmed by VISH HOOKER, JEREMI ([id number]), non linear editor VINCE OPNCE ([id number]) on 05/29/2017 12:36:02 PM Referred By: Confirmed By:JEREMI WAHL MD
== END 2017-05-22 16:02 ==
LOC: ERS 11:16
DX: E10.65 Type 1 diabetes mellitus with hyperglycemia (principal); F03.90 Unspecified dementia, unspecified severity, without behavioral disturbance, psychotic disturbance, mood disturbance, and anxiety; E78.5 Hyperlipidemia, unspecified; I11.0 Hypertensive heart disease with heart failure; I50.9 Heart failure, unspecified; Z79.82 Long term (current) use of aspirin; Z79.899 Other long term (current) drug therapy; Z86.73 Personal history of transient ischemic attack (TIA), and cerebral infarction without residual deficits; W19.XXXA Unspecified fall, initial encounter
CPT/HCPCS: 36415; 36416; 71045; 80053; 81003; 82010; 82330; 82553; 82803; 83690; 83880; 84484; 85025; 93005

== ENCOUNTER 2017-07-29 00:42 | Emergency (ER) | payer MEDICARE ==
[2017-07-29] MEDS ORDERED: Ondansetron ODT 8 MG TAB ONE (01:14)
--- NOTE | 2017-07-29 07:47 | RAD ---
SINGLE VIEW OF THE CHEST: COMPARISON: 05/22/17, CT chest 12/31/16. HISTORY: Altered mental status. FINDINGS: A single view of the chest shows a cardiomediastinal silhouette which is upper limits of normal in si ze with atherosclerotic calcifications in the aorta. There is no evidence of consolidation or pleura l effusion. There is an opacity projecting over the right lower lobe measuring 11 mm in size. This was not seen on the prior CT and may represent a nipple shadow. IMPRESSION: No evidence of acute cardiopulmonary disease. POS: [facility]
== END 2017-07-29 04:30 | disposition home or self-care (01) ==
LOC: ERS 00:42
DX: E10.649 Type 1 diabetes mellitus with hypoglycemia without coma (principal); E78.5 Hyperlipidemia, unspecified; I11.0 Hypertensive heart disease with heart failure; I50.9 Heart failure, unspecified
CPT/HCPCS: 36416; 71045

== ENCOUNTER 2018-01-15 07:58 | Emergency (ER) | payer MEDICARE ==
[2018-01-15 08:48] LABS: #Basophils 0.1 thou/uL (0.0-0.2); #Eosinphils 0.2 thou/uL (0.0-0.7); #Lymphocytes 3.9 thou/uL (1.20-3.40); #Monocytes 0.7 thou/uL (0.11-0.59); #Neutrophils 5.8 thou/uL (1.40-6.50); %Basophils 0.8 % (0.0-1.0); %Eosinophils 1.7 % (0.0-10.0); %Lymphocytes 36.5 % (21.0-51.0); %Monocytes 6.9 % (0.0-10.0); %Neutrophils 54.1 % (42.0-75.0); Mean Corpuscular HGB CONC 32.8 g/dL (32.0-36.0); Mean Corpuscular Hemoglobin 30.2 pg (27.0-31.0); Mean Corpuscular Volume 92.2 fL (78.0-98.0); Mean Platelet Volume 7.2 fL (7.4-10.4); Platelet Count 333 thou/uL (130-400); RBC Distribution Width 12.9 % (11.5-14.5); Red Blood Cell (RBC) Count 3.98 mill/uL (4.70-6.10); White Blood Cell (WBC) Count 10.7 thou/uL (4.8-10.8)
[2018-01-15] MEDS ORDERED: Ondansetron PF 4 MG/2 ML Vial ONE (09:05)
[2018-01-15 09:11] LABS: ALT (SGPT) 13 U/L (8-55); AST (SGOT) 12 U/L (5-34); Albumin 3.8 g/dL (3.4-4.8); Alkaline Phosphatase 110 U/L (40-150); Anion Gap 13 mmol/L (10-20); BUN (Urea Nitrogen) 12 mg/dL (8.4-25.7); Bilirubin, Total 0.6 mg/dL (0.2-1.2); Calc. Creatinine Clearance 0 mL/min (70-130); Calcium 9.1 mg/dL (7.8-10.44); Carbon Dioxide 28 mmol/L (23-31); Chloride 97 mmol/L (98-107); Estimated GFR-MDRD Greater than 90; Globulin 2.6 g/dL (2.4-3.5); Glucose 190 mg/dL (83-110); Magnesium 1.3 mg/dL (1.6-2.6); Potassium 3.8 mmol/L (3.5-5.1); Protein, Total 6.4 g/dL (5.8-8.1); Sodium 134 mmol/L (136-145)
--- NOTE | 2018-01-15 12:22 | RAD ---
PORTABLE CHEST 1 VIEW: DATE: 01/15/2018. TIME: 8:51 a.m. HISTORY: Tremors. FINDINGS: Comparison is made with the exam of 07/29/2017. The heart size is normal. The aorta is tortuous. The lungs are expanded without focal areas of cons olidation, pneumothorax, or pleural effusions. IMPRESSION: No acute process. POS: [facility]
== END 2018-01-15 11:16 ==
LOC: ERS 07:58
DX: R25.3 Fasciculation (principal); K21.9 Gastro-esophageal reflux disease without esophagitis; G20 Parkinson's disease; G30.9 Alzheimer's disease, unspecified; F02.80 Dementia in other diseases classified elsewhere, unspecified severity, without behavioral disturbance, psychotic disturbance, mood disturbance, and anxiety; E11.9 Type 2 diabetes mellitus without complications; E78.5 Hyperlipidemia, unspecified; Z86.73 Personal history of transient ischemic attack (TIA), and cerebral infarction without residual deficits; F20.9 Schizophrenia, unspecified; I11.0 Hypertensive heart disease with heart failure; I50.9 Heart failure, unspecified; Z79.4 Long term (current) use of insulin; Z79.82 Long term (current) use of aspirin; Z79.899 Other long term (current) drug therapy
CPT/HCPCS: 36415; 71045; 80053; 83735; 85025; 96361; 96374; J2405

== ENCOUNTER 2018-06-19 13:40 | Observation (INO) | payer MEDICARE ==
--- NOTE | 2018-06-19 15:02 | RAD ---
FRadiograph chest one view: HISTORY: Fever FINDINGS: The visualized lung gunderson are clear. The cardiomediastinal silhouette is normal. No pneumothorax. IMPRESSION: No acute cardiopulmonary findings.
[2018-06-19 15:17] LABS: #Basophils 0.1 thou/uL (0.0-0.2); #Lymphocytes 3.4 thou/uL (1.20-3.40); %Basophils 0.4 % (0.0-1.0); %Eosinophils 0.2 % (0.0-10.0); %Lymphocytes 22.2 % (21.0-51.0); %Monocytes 6.3 % (0.0-10.0); Mean Corpuscular HGB CONC 33.5 g/dL (32.0-36.0); Mean Corpuscular Volume 95.6 fL (78.0-98.0); Mean Platelet Volume 7.2 fL (7.4-10.4); Platelet Count 430 thou/uL (130-400); RBC Distribution Width 13.2 % (11.5-14.5); Red Blood Cell (RBC) Count 3.75 mill/uL (4.70-6.10); White Blood Cell (WBC) Count 15.5 thou/uL (4.8-10.8)
[2018-06-19 15:30] LABS: ALT (SGPT) 14 U/L (8-55); AST (SGOT) 9 U/L (5-34); Alkaline Phosphatase 127 U/L (40-150); Anion Gap 20 mmol/L (10-20); BUN (Urea Nitrogen) 13 mg/dL (8.4-25.7); Bilirubin, Total 0.8 mg/dL (0.2-1.2); CK (CPK) 67 U/L (30-200); Calc. Creatinine Clearance 0 mL/min (70-130); Calcium 9.3 mg/dL (7.8-10.44); Carbon Dioxide 26 mmol/L (23-31); Chloride 97 mmol/L (98-107); Estimated GFR-MDRD 66; Globulin 2.6 g/dL (2.4-3.5); Glucose 242 mg/dL (83-110); Potassium 3.7 mmol/L (3.5-5.1); Protein, Total 6.6 g/dL (5.8-8.1); Sodium 139 mmol/L (136-145)
--- NOTE | 2018-06-19 16:10 | CT ---
FCT brain noncontrast: 06/19/2018 HISTORY: 72-year-old male with tremors FINDINGS: There is no evidence of acute intra-axial or extra-axial hemorrhage. No mass effect, midline shift, o r extra-axial fluid collection. No evidence of obstructive hydrocephalus. Calvarium is intact. There are bilateral old infarctions involving the basal ganglia and caudate nuclei, and small portions of t he adjacent periventricular white matter. No interval change overall since 12/28/2016. IMPRESSION: 1. No acute intracranial findings. 2. 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
[2018-06-19 17:20] LABS: Bilirubin Negative (Negative); Blood, Urine Negative (Negative); Clarity CLEAR (Clear); Glucose, Urine (Dipstick) >=1000 mg/dL (Negative); Leukocyte Negative (Negative); Nitrite Negative (Negative); Protein, Urine (Dipstick) Negative (Neg-Trace); Specific Gravity, Urine 1.033 (1.002-1.036)
[2018-06-19] MEDS ORDERED: Sodium Chloride 0.9% 100 ML ONE (17:21)
[2018-06-19] MEDS ORDERED: Cefepime 2 GM VIAL ONE (17:21)
[2018-06-19] MEDS ORDERED: Acetaminophen 650 MG Suppository PR PRN (19:02)
[2018-06-19] MEDS ORDERED: Ondansetron PF 4 MG/2 ML Vial IVP PRN (19:02)
[2018-06-19] MEDS ORDERED: Dextrose 5% in Water 1,000 ML IV PRN (19:02)
[2018-06-19] MEDS ORDERED: hydrALAZINE 20 MG/ML VIAL SLOW IVP PRN (19:08)
[2018-06-19 19:32] LABS: Lactic Acid 2.8 mmol/L (0.5-2.2)
--- NOTE | 2018-06-19 20:30 | HP ---
PRIMARY CARE PROVIDER: Dr. Sher Baldwin. CHIEF COMPLAINT: Tremor. HISTORY OF PRESENT ILLNESS: This is a 72-year-old male with history of brittle insulin-dependent diabetes with a history of DKA; Alzheimer dementia; hypertension; dyslipidemia; GERD; constipation; who presents to the emergency room from [facility], where he is a resident for tremors. All of the history is obtained from the nursing staff, who reports the skilled nursing called over and said the patient is having increasing tremors. The patient can tell me his name, his date of , and that he has been shaking, he thinks it started 3 days ago. He denies any other problems. He denies any fevers or chest pain, any change in breathing or coughing, nausea, vomiting, abdominal pain, any change in urination or diarrhea. No etiology for this is known as well as no known baseline of tremors. On arrival to the emergency room, the patient had a rectal temperature of 99.6, found to be hypertensive with an elevated white blood cell count, and a lactate of 7.2. For this, he received vancomycin 1 g, cefepime 2 g, normal saline 1 L, and hospitalist called for admission. ALLERGIES: PER HIS MEDICAL RECORD, PENICILLIN. CURRENT MEDICATIONS: Reconciled with the list provided by the skilled nursing; 1. Cymbalta 60 mg at bedtime. 2. Tresiba 24 units daily. 3. Humulin regular sliding scale, 150-200 four units, 201-250 six units, 251-300 eight units, 301-350 ten units, 351-400 twelve units, 401-450, fourteen units, greater than that call MD. 4. Hydralazine 50 mg t.i.d. 5. Aspirin 81 mg daily. 6. Docusate 100 mg daily. 7. Lipitor 40 mg daily. 8. Lisinopril 20 mg daily. 9. Magnesium oxide 400 mg daily. 10. Metoprolol tartrate 25 mg b.i.d. 11. Norvasc 10 mg daily. 12. Prandin 1 mg daily. 13. Protonix 40 mg daily. 14. Metformin 1000 mg b.i.d. 15. Namenda 10 mg b.i.d. 16. Abilify 5 mg at bedtime. 17. Aricept 10 mg at bedtime. 18. Loratadine 10 mg daily. 19. Zofran 4 mg every 4 hours as needed. 20. Coricidin HBP one or two capsules every 4 hours as needed. 21. Tylenol 325 mg q.6 hours p.r.n. PAST MEDICAL HISTORY: Per chart review; 1. Insulin-dependent diabetes with history of DKA, type 2. 2. Chronic kidney disease. 3. Alzheimer dementia. 4. Dyslipidemia. 5. Hypertension. 6. Constipation. 7. GERD. PAST SURGICAL HISTORY: Per chart review is for a right hip surgery. SOCIAL HISTORY: The patient lives at [facility]. He has an appointed guardian with the name/information documented below. He is a full code. REVIEW OF SYSTEMS: Per the patient above, all negative, uncertain of the reliability of this information. FAMILY HISTORY: Unobtainable, the patient only reports that both of his parents and his sister have . PHYSICAL EXAMINATION: VITAL SIGNS: Blood pressure is 185/78, pulse 68, respirations 16, saturations 95% on room air. Temperature 99.6 rectal, obtained a few hours ago. GENERAL: The patient is awake. He is alert and oriented to person, not to place, time, or situation. HEENT: His pupils are equal and round. No scleral icterus. Oral mucosa is pink and moist, poor dentition. NECK: Supple and nontender. LYMPHATICS: No palpable cervical or supraclavicular lymphadenopathy. LUNGS: Clear to auscultation bilateral with good air movement. HEART: Normal S1 and S2. Regular rate and rhythm. No audible murmurs. ABDOMEN: Soft. Present bowel sounds. Nontender, nondistended. EXTREMITIES: No pitting edema. SKIN: No visible rashes. VASCULAR: 2+ dorsalis pedis pulses. NEUROLOGIC: He follows commands, arms and legs are moving equally. The patient with notable involuntary shaking of his upper extremities primarily, not rhythmic, and coarse jerking. PSYCH: Oriented to person, most of the speech is understandable. LABORATORY DATA: Labs reviewed. CBC; 15.5, 12.0, 35.9, 430, with a baseline hemoglobin in the past of 10 to 13. Renal panel; 139, 3.7, 97, 26, 13, 1.1, 242. Lactic acid 7.2, calcium 9.3. LFTs are normal. Troponin negative. Urine shows greater than 1000 glucose, 40 ketones, negative leukocyte esterase and nitrite. Chest x-ray is personally reviewed. No acute cardiopulmonary findings. 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 IMPRESSION: 1. Tremors, elevated lactate with a leukocytosis, without an etiology in a patient who resides in a nursing facility. 2. History of dementia as well as stroke. 3. Brittle insulin-dependent diabetes by chart review. 4. Hypertension, uncontrolled. 5. Dyslipidemia. 6. Gastroesophageal reflux disease. 7. Constipation. PLAN: 1. Observation status in the hospital. 2. Blood cultures obtained, however, after the patient has received antibiotics, to evaluate for bacterial source for the tremors and leukocytosis. 3. Monitor urine culture. 4. IVF hydration while NPO. 5. Consider Neurology consult if the tremors persist. 6. Continue the cefepime and vancomycin now, following for a source for the leukocytosis. 7. The patient is noted to be coughing with taking a sip of fluids in the emergency room, we will have him n.p.o. with a Speech consult and hold his oral medications. 8. IV hydralazine p.r.n. for elevated blood pressures, continuing the insulin therapy with a mild sliding scale. 9. DVT prophylaxis with pneumatic compression devices. 10. GI prophylaxis not indicated. However, the patient is on a PPI at home. We will use IV Protonix to cover for here. 11. Code status is full per chart review, and in discussion with the patient, he states that he does not know. It appears that he has a legal guardian listed on the ID face sheet,, Esme Lucy Fraire, phone #[phone]. We will request a Palliative Careconsult to help with clarifying code status and discussing the current situation with the patient. 12. The patient is at high risk, given age, comorbidities, and current presentation. 13. Reviewed the basis of this hospitalization, which includes covering for infection, monitoring for source, no questions or further needs at end of evaluation. 14. The patient is at high risk, given age, comorbidities, and current presentation. Addendum - after dictation, pt arrived to the medical floor eating. No coughing or difficulty swallowing was noted. I cancelled the speech consult, ordered a diabetes prudent/heart healthy diet and most of the patient's usual home medications. Job ID: [id number] [facility]
[2018-06-19] MEDS ORDERED: Loratadine 10 MG TAB PO PRN (21:18)
[2018-06-19 21:21] VITALS: BMI 22.2
--- NOTE | 2018-06-19 21:29 | PDOC.EVN ---
Event Note - Event Note Event Note: Informed by RN that pt was transported to floor eating - no coughing or problems noted. Diet started, speech consult d/c. Also reviewed medications and resumed most of them. Will need to adjust insulin based on blood sugars here.
[2018-06-19] MEDS: HumaLOG 300 UNITS/3 ML VIAL SC PRN (21:38)
[2018-06-19] MEDS ORDERED: Metoprolol Tartrate 25 MG TAB PO SCH (21:45)
[2018-06-19] MEDS ORDERED: Donepezil HCl 10 MG TAB PO SCH (21:45)
[2018-06-19] MEDS ORDERED: Aripiprazole 10 MG TAB PO SCH (21:45)
[2018-06-19] MEDS ORDERED: DULoxetine 60 MG CAP PO SCH (21:45)
[2018-06-19] MEDS: Sodium Chloride 0.9% 1,000 ML IV SCH (22:15)
[2018-06-20 05:51] LABS: #Basophils 0.1 thou/uL (0.0-0.2); #Eosinphils 0.1 thou/uL (0.0-0.7); #Lymphocytes 2.7 thou/uL (1.20-3.40); #Monocytes 0.8 thou/uL (0.11-0.59); #Neutrophils 5.7 thou/uL (1.40-6.50); %Basophils 0.6 % (0.0-1.0); %Eosinophils 1.4 % (0.0-10.0); %Lymphocytes 28.9 % (21.0-51.0); %Monocytes 8.4 % (0.0-10.0); %Neutrophils 60.7 % (42.0-75.0); Hemoglobin 10.8 g/dL (14.0-18.0); Mean Corpuscular HGB CONC 33.5 g/dL (32.0-36.0); Mean Corpuscular Hemoglobin 31.5 pg (27.0-31.0); Mean Corpuscular Volume 94.1 fL (78.0-98.0); Mean Platelet Volume 7.7 fL (7.4-10.4); Platelet Count 375 thou/uL (130-400); RBC Distribution Width 13.1 % (11.5-14.5); Red Blood Cell (RBC) Count 3.44 mill/uL (4.70-6.10); White Blood Cell (WBC) Count 9.4 thou/uL (4.8-10.8)
[2018-06-20 06:17] LABS: Anion Gap 15 mmol/L (10-20); BUN (Urea Nitrogen) 13 mg/dL (8.4-25.7); Calc. Creatinine Clearance 66 mL/min (70-130); Calcium 8.7 mg/dL (7.8-10.44); Carbon Dioxide 26 mmol/L (23-31); Chloride 100 mmol/L (98-107); Estimated GFR-MDRD 71; Glucose 396 mg/dL (83-110); Potassium 4.4 mmol/L (3.5-5.1); Sodium 137 mmol/L (136-145)
[2018-06-20] MEDS: Cefepime 2 GM in Sodium Chloride 0.9% 100 ML IVPB SCH ×2 (06:27→18:21)
[2018-06-20] MEDS: HumaLOG 300 UNITS/3 ML VIAL SC PRN ×4 (06:27→21:28)
[2018-06-20] MEDS: Sodium Chloride 0.9% 1,000 ML IV SCH ×2 (06:51→17:48)
[2018-06-20] MEDS ORDERED: Aspirin 81 mg Enteric Coated Tablet PO SCH (09:00)
[2018-06-20] MEDS ORDERED: Lisinopril 20 MG TAB PO SCH (09:00)
[2018-06-20] MEDS ORDERED: Prevnar 13-Val Conj/PF 0.5 ML SYRINGE IM ONE (09:00)
[2018-06-20] MEDS ORDERED: Insulin Glargine 24 UNITS in Pre-Filled Syringe 1 EACH SC SCH (09:00)
[2018-06-20] MEDS ORDERED: Amlodipine 10 MG TAB PO SCH (09:00)
[2018-06-20] MEDS ORDERED: hydrALAZINE 25 MG TAB PO SCH (09:00)
[2018-06-20] MEDS ORDERED: Metoprolol Tartrate 25 MG TAB PO SCH (09:00)
[2018-06-20] MEDS ORDERED: Pantoprazole 40 MG VIAL IVP SCH (09:00)
[2018-06-20] MEDS ORDERED: Insulin Glargine 20 UNITS in Pre-Filled Syringe 1 EACH SC SCH (09:00)
[2018-06-20] MEDS: Magnesium Oxide 400 MG TAB PO SCH (10:31)
[2018-06-20] MEDS: Docusate 100 MG CAP PO SCH ×2 (10:31→21:15)
[2018-06-20] MEDS: Vancomycin HCl 750 MG in Sodium Chloride 0.9% 250 ML 250 ML IVPB SCH ×2 (10:32→21:00)
--- NOTE | 2018-06-20 10:50 | PDOC.PN ---
- Subjective Encounter Start Date: 06/20/18 Encounter Start Time: 10:48 Subjective: alert, confused, calm - Objective Resuscitation Status - Order Detail: 06/19/18 19:02 Resuscitation Status Routine Resuscitation Status: FULL: Full Resuscitation Discussed with: per alf documentation MAR Reviewed: Yes Vital Signs & Weight: Vital Signs (12 hours) Temp Pulse Resp BP Pulse Ox 06/20/18 10:31 88 06/20/18 10:30 88 06/20/18 07:20 98.5 F 88 10 L 148/76 H 94 L 06/20/18 04:49 98.8 F 65 16 161/70 H 94 L 06/20/18 03:51 95 06/20/18 00:40 99.3 F 78 16 162/69 H 95 Weight Weight 155 lb 6.4 oz Result Diagrams: 06/20/18 04:37 06/20/18 04:37 Additional Labs: Accuchecks 06/20/18 06/19/18 05:46 21:00 POC Glucose 335 H 276 H Phys Exam - Physical Examination Neck: no JVD Respiratory: clear to auscultation bilateral Cardiovascular: RRR, no significant murmur Gastrointestinal: soft, positive bowel sounds Musculoskeletal: no edema Neurological: non-focal diffuse tremor, increased rigidity, cogwheeling Dx/Plan (1) Tremor due to disorder of central nervous system Code(s): R25.1 - TREMOR, UNSPECIFIED; G96.9 - DISORDER OF CENTRAL NERVOUS SYSTEM , UNSPECIFIED Status: Acute (2) Dementia Code(s): F03.90 - UNSPECIFIED DEMENTIA WITHOUT BEHAVIORAL DISTURBANCE Status: Acute Qualifiers: Dementia type: unspecified type Dementia behavioral disturbance: without behavioral disturbance Qualified Code(s): F03.90 - Unspecified dementia without behavioral disturbance (3) Leukocytosis Code(s): D72.829 - ELEVATED WHITE BLOOD CELL COUNT, UNSPECIFIED Status: Acute Qualifiers: Leukocytosis type: unspecified Qualified Code(s): D72.829 - Elevated white blood cell count, unspecified - Plan PT eval. neuro consult -: leukocytosis resolved, cxr clear, UA clear, afebrile * .
[2018-06-20] MEDS: hydrALAZINE 25 MG TAB PO SCH ×2 (16:09→21:01)
[2018-06-20] MEDS ORDERED: Aripiprazole 10 MG TAB PO SCH (21:00)
[2018-06-20] MEDS ORDERED: DULoxetine 60 MG CAP PO SCH (21:00)
[2018-06-20] MEDS ORDERED: Donepezil HCl 10 MG TAB PO SCH ×2 (21:00)
[2018-06-20] MEDS ORDERED: Atorvastatin Calcium 40 MG TAB PO SCH (21:00)
[2018-06-20] MEDS: DULoxetine 60 MG CAP PO SCH (21:01)
[2018-06-20] MEDS: Metoprolol Tartrate 25 MG TAB PO SCH (21:14)
[2018-06-20] MEDS: Aripiprazole 10 MG TAB PO SCH (21:14)
[2018-06-20] MEDS: metFORMIN 500 MG TAB PO SCH (21:15)
[2018-06-21] MEDS: Sodium Chloride 0.9% 1,000 ML IV SCH ×2 (02:42→12:54)
[2018-06-21] MEDS: Cefepime 2 GM in Sodium Chloride 0.9% 100 ML IVPB SCH ×2 (05:39→17:52)
[2018-06-21] MEDS: Vancomycin HCl 750 MG in Sodium Chloride 0.9% 250 ML 250 ML IVPB SCH (08:38)
[2018-06-21] MEDS: Amlodipine 10 MG TAB PO SCH (08:40)
[2018-06-21] MEDS: Magnesium Oxide 400 MG TAB PO SCH (08:40)
[2018-06-21] MEDS: Lisinopril 20 MG TAB PO SCH (08:40)
[2018-06-21] MEDS: hydrALAZINE 25 MG TAB PO SCH ×3 (08:40→21:12)
[2018-06-21] MEDS: Docusate 100 MG CAP PO SCH ×3 (08:40→21:11)
[2018-06-21] MEDS: Pantoprazole 40 MG GRANULES PACKET PO SCH (08:40)
[2018-06-21] MEDS: metFORMIN 500 MG TAB PO SCH ×2 (08:41→21:12)
[2018-06-21] MEDS: Metoprolol Tartrate 25 MG TAB PO SCH ×2 (08:41→21:12)
[2018-06-21] MEDS: Aspirin Chewable 81 MG TAB PO SCH (08:41)
[2018-06-21] MEDS ORDERED: Insulin Glargine 24 UNITS in Pre-Filled Syringe 1 EACH SC SCH (09:00)
--- NOTE | 2018-06-21 10:15 | PDOC.PN ---
- Subjective Encounter Start Date: 06/21/18 Encounter Start Time: 10:13 Subjective: poorly responsive - Objective Resuscitation Status - Order Detail: 06/19/18 19:02 Resuscitation Status Routine Resuscitation Status: FULL: Full Resuscitation Discussed with: per senior living documentation MAR Reviewed: Yes Vital Signs & Weight: Vital Signs (12 hours) Temp Pulse Resp BP BP Pulse Ox 06/21/18 08:40 61 06/21/18 07:48 97.5 F L 56 L 14 130/75 96 06/21/18 04:41 97.5 F L 61 18 133/75 97 06/21/18 00:30 98.4 F 69 18 138/77 96 Weight Weight 155 lb 6.4 oz I&O: 06/20/18 06/21/18 06/22/18 06:59 06:59 06:59 Intake Total 1350 Balance 1350 Result Diagrams: 06/20/18 04:37 06/20/18 04:37 Additional Labs: Accuchecks 06/21/18 06/20/18 06/20/18 06:35 21:29 15:36 POC Glucose 75 204 H 329 H 06/20/18 11:14 POC Glucose 238 H Phys Exam - Physical Examination responds to sternal rub Neck: no JVD Respiratory: clear to auscultation bilateral Cardiovascular: RRR, no significant murmur Gastrointestinal: soft, positive bowel sounds Musculoskeletal: no edema Dx/Plan (1) Tremor due to disorder of central nervous system Code(s): R25.1 - TREMOR, UNSPECIFIED; G96.9 - DISORDER OF CENTRAL NERVOUS SYSTEM , UNSPECIFIED Status: Acute (2) Dementia Code(s): F03.90 - UNSPECIFIED DEMENTIA WITHOUT BEHAVIORAL DISTURBANCE Status: Acute Qualifiers: Dementia type: unspecified type Dementia behavioral disturbance: without behavioral disturbance Qualified Code(s): F03.90 - Unspecified dementia without behavioral disturbance (3) Leukocytosis Code(s): D72.829 - ELEVATED WHITE BLOOD CELL COUNT, UNSPECIFIED Status: Acute Qualifiers: Leukocytosis type: unspecified Qualified Code(s): D72.829 - Elevated white blood cell count, unspecified - Plan stat ABG,CBC, LACTATE< BMP * .
[2018-06-21] MEDS: Dextrose 50% Abboject 50 ML SYRINGE SLOW IVP PRN ×2 (10:19→16:07)
[2018-06-21 10:59] LABS: #Eosinphils 0.2 thou/uL (0.0-0.7); #Lymphocytes 2.7 thou/uL (1.20-3.40); #Monocytes 0.7 thou/uL (0.11-0.59); #Neutrophils 5.2 thou/uL (1.40-6.50); %Basophils 0.5 % (0.0-1.0); %Eosinophils 1.8 % (0.0-10.0); %Lymphocytes 30.6 % (21.0-51.0); %Monocytes 8.1 % (0.0-10.0); %Neutrophils 58.9 % (42.0-75.0); Hemoglobin 10.2 g/dL (14.0-18.0); Mean Corpuscular HGB CONC 33.6 g/dL (32.0-36.0); Mean Corpuscular Hemoglobin 31.7 pg (27.0-31.0); Mean Corpuscular Volume 94.2 fL (78.0-98.0); Mean Platelet Volume 7.2 fL (7.4-10.4); Platelet Count 321 thou/uL (130-400); RBC Distribution Width 13.1 % (11.5-14.5); Red Blood Cell (RBC) Count 3.23 mill/uL (4.70-6.10); White Blood Cell (WBC) Count 8.8 thou/uL (4.8-10.8)
[2018-06-21 11:07] LABS: Actual Bicarbonate (HCO3a) 25.6 mEq/L (22-28); Base Excess (BEa) 1.1 mEq/L (-2.0 to +3.0); CO2 Tension 40.6 mmHg (35.0-45.0); Calcium, Ionized 1.13 mmol/L (1.12-1.30); Carboxyhemoglobin (COHb) 0.8 gm% (0.0-3.0); Hemoglobin (Hb) 10.7 g/dL (14.0-18.0); O2 Tension (PaO2) 67.5 mmHg (> 70.0); Potassium - ABG Lab 2.93 mmol/L (3.70-5.30); Puncture Site RRA; pH, Arterial 7.42 (7.35-7.45)
[2018-06-21 11:20] LABS: Anion Gap 11 mmol/L (10-20); BUN (Urea Nitrogen) 14 mg/dL (8.4-25.7); Calc. Creatinine Clearance 84 mL/min (70-130); Calcium 8.3 mg/dL (7.8-10.44); Carbon Dioxide 26 mmol/L (23-31); Chloride 105 mmol/L (98-107); Estimated GFR-MDRD Greater than 90; Glucose 156 mg/dL (83-110); Potassium 3.1 mmol/L (3.5-5.1); Sodium 139 mmol/L (136-145)
[2018-06-21] MEDS: Dextrose 5 %-0.45 % NaCl 1,000 ML IV SCH (16:40)
--- NOTE | 2018-06-21 17:26 | PDOC.EVN ---
Event Note - Event Note Event Note: MCDONNELL for lethargy unrevealing. apparently has similar episodes in NH.poor intake today, started iv fluids. no success in contacting guardian
[2018-06-21 20:36] LABS: Vancomycin, Trough 9.3 ug/mL
[2018-06-21] MEDS ORDERED: Atorvastatin Calcium 40 MG TAB PO SCH (21:00)
[2018-06-21] MEDS: DULoxetine 60 MG CAP PO SCH (21:11)
[2018-06-21] MEDS: Aripiprazole 10 MG TAB PO SCH (21:12)
[2018-06-21] MEDS ORDERED: Vancomycin HCl 1.25 GM in Sodium Chloride 0.9% 250 ML 250 ML IVPB SCH (21:15)
[2018-06-22] MEDS: Dextrose 50% Abboject 50 ML SYRINGE SLOW IVP PRN (00:23)
[2018-06-22] MEDS: Cefepime 2 GM in Sodium Chloride 0.9% 100 ML IVPB SCH (05:28)
[2018-06-22] MEDS: Dextrose 5 %-0.45 % NaCl 1,000 ML IV SCH ×2 (05:28→11:58)
--- NOTE | 2018-06-22 07:51 | CON ---
DATE OF CONSULTATION: 06/21/2018 CONSULTING PHYSICIAN: Hospitalist Services. IMPRESSION: Parkinson dementia. PLAN: [facility]. HISTORY OF PRESENT ILLNESS: Mr. Dougherty is a 72-year-old man with a history of brittle diabetes, dementia, hypertension, hyperlipidemia, reflux, constipation, who is [facility]. Apparently, was noted to have some tremors and was sent to the ER for evaluation. He had a CT of the brain done, which showed some old lacunar infarctions. Blood glucose was elevated. His pCO2 was 67. He has otherwise been stable and afebrile since admission. He is unable to give me any type of history and has no particular complaints. PAST MEDICAL HISTORY: As listed above. ALLERGIES: PENICILLIN. MEDICATIONS: Medication list was reviewed. SOCIAL HISTORY: No current tobacco or alcohol use. REVIEW OF SYSTEMS: Not obtainable due to his dementia. FAMILY HISTORY: Noncontributory. PHYSICAL EXAMINATION: GENERAL: He is a reasonably well-nourished elderly man, lying in bed quietly. VITAL SIGNS: Blood pressure 185/78, pulse 68, respirations 16, saturations 95%. HEENT: Pupils are equal. Conjunctivae are clear. Mucous membranes are dry. NECK: Supple. No lymphadenopathy noted. EXTREMITIES: No cyanosis, but there is some peripheral edema. NEUROLOGIC: He would awaken and follow commands reasonably well. His speech was fluent and clear. Cranial nerves were intact. Motor exam showed increased tone bilaterally to passive range of motion with some cogwheel quality. Rapid alternating movements were slowed bilaterally. No tremor was elicited. Gait was not testable. Sensations intact to touch. He did have antigravity strength in all four extremities. DIAGNOSTIC STUDIES: LABORATORY RESULTS: Lab was reviewed. IMAGING STUDIES: CT of the brain was also reviewed. SUMMARY: A 72-year-old gentleman, who apparently has had some degree of dementia and has some Parkinson's features. This clinical picture is usually not very responsive to typical Parkinson's medication. There is not really much to offer other than comfort care. Job ID: [id number]
[2018-06-22] MEDS ORDERED: Vancomycin HCl 1.25 GM in Sodium Chloride 0.9% 250 ML 250 ML IVPB SCH (09:00)
[2018-06-22] MEDS: Amlodipine 10 MG TAB PO SCH (10:03)
[2018-06-22] MEDS: Metoprolol Tartrate 25 MG TAB PO SCH (10:04)
[2018-06-22] MEDS: Aspirin Chewable 81 MG TAB PO SCH (10:04)
[2018-06-22] MEDS: hydrALAZINE 25 MG TAB PO SCH ×2 (10:04→15:36)
[2018-06-22] MEDS: Magnesium Oxide 400 MG TAB PO SCH (10:05)
[2018-06-22] MEDS: Lisinopril 20 MG TAB PO SCH (10:05)
[2018-06-22] MEDS: metFORMIN 500 MG TAB PO SCH (10:07)
[2018-06-22] MEDS: Docusate 100 MG CAP PO SCH (10:08)
[2018-06-22] MEDS: Pantoprazole 40 MG GRANULES PACKET PO SCH (10:08)
--- NOTE | 2018-06-22 11:21 | DIS ---
DATE OF ADMISSION: 06/19/2018 DATE OF DISCHARGE: 06/22/2018 DISPOSITION: Discharged back to [facility]. PRIMARY CARE PROVIDER: Dr. Heriberto Robledo. FINAL DIAGNOSES: Systemic inflammatory response syndrome; dementia; tremor, resolved; hypertension; and diabetes mellitus, type 2. DISCHARGE MEDICATIONS: Same as his home medicines. 1. Metformin 1000 mg p.o. b.i.d. 2. Hydralazine 50 mg p.o. t.i.d. 3. Aspirin 81 mg a day. 4. Lipitor 40 mg a day. 5. Lisinopril 20 mg a day. 6. Amlodipine 10 mg a day. 7. Magnesium oxide 800 mg a day. 8. Metoprolol 25 mg twice a day. 9. Protonix 40 mg a day. 10. Prandin 1 mg daily. 11. Namenda 10 mg twice a day. 12. Abilify 5 mg h.s. 13. Aricept 10 mg h.s. 14. Insulin degludec 24 units in the morning. ALLERGIES: PENICILLINS. PENDING AT THE TIME OF DISCHARGE: Nothing. DIET: As tolerated. CODE STATUS: Full. HOSPITAL COURSE: The patient was admitted to [facility] through [facility]. The patient came in, had a severe tremor. He was found to have a very high lactic acid and elevated white count. Cultures were drawn. He was started on antibiotics and antihypertensives. Accu-Cheks and sliding scale were continued. His CBC showed a white count of 15.5, hemoglobin 12, and platelet count 430,000. His comprehensive metabolic profile showed a blood sugar of 242 and chloride of 97. Liver test unremarkable. Initial lactate was 7.2, started on antibiotics and IV fluids. Lactate came down to 2.8 and subsequently down to normal. Cultures revealed influenza A and B negative. Blood and urine cultures were negative. Chest x-ray was clear. The patient was afebrile during his hospital stay. His CBC rapidly came down to normal. There were plans made for discharge 24 hours ago, but he was very poorly responsive. He was worked up with repeat CBC, lactic acid, basic metabolic profile with all unremarkable. Today, he is at his usual status, his response is appropriate, he is afebrile. He is being discharged back to the skilled nursing. The SIRS syndrome, which apparently was nonbacterial in origin and the tremor have resolved. He was seen in consultation by Dr. Asim Diaz, Neurology, for the tremor and he had nothing to offer. The patient is being transferred back to skilled nursing. Followup by primary care provider in 1 week. No procedures were done. Job ID: [id number]
[2018-06-22] MEDS: HumaLOG 300 UNITS/3 ML VIAL SC PRN (12:12)
[2018-06-22 16:07] VITALS: BP 138/76; TEMP 97.9
== END 2018-06-22 15:30 ==
LOC: ERS 13:40 → SJJU 19:35
PROVIDERS: ADMIT Family Medicine; ATTEND Family Medicine
DX: G96.9 Disorder of central nervous system, unspecified (principal); R25.1 Tremor, unspecified; R65.10 Systemic inflammatory response syndrome (SIRS) of non-infectious origin without acute organ dysfunction; G30.9 Alzheimer's disease, unspecified; F02.80 Dementia in other diseases classified elsewhere, unspecified severity, without behavioral disturbance, psychotic disturbance, mood disturbance, and anxiety; E78.5 Hyperlipidemia, unspecified; K21.9 Gastro-esophageal reflux disease without esophagitis; K59.00 Constipation, unspecified; I12.9 Hypertensive chronic kidney disease with stage 1 through stage 4 chronic kidney disease, or unspecified chronic kidney disease; E11.22 Type 2 diabetes mellitus with diabetic chronic kidney disease; N18.9 Chronic kidney disease, unspecified; D72.829 Elevated white blood cell count, unspecified; Z79.4 Long term (current) use of insulin; Z79.82 Long term (current) use of aspirin; Z79.899 Other long term (current) drug therapy; Z88.0 Allergy status to penicillin
CPT/HCPCS: 51701; 70450; 71045; 80048 ×2; 80053; 80202; 81003; 82550; 82805; 82962 ×4; 83605 ×2; 84484; 85025 ×3; 87040; 87086; 87804 ×2; 96361 ×4; 96365; 96366 ×3; 96367; 96375; 96376 ×3; 97116; 97530; 99285; G0378 ×3; 36415; 36416; J0692; J1825; J3370; J3490; J7050

== ENCOUNTER 2018-06-29 05:37 | Emergency (ER) | payer MEDICARE ==
[2018-06-29 06:28] LABS: #Eosinphils 0.1 thou/uL (0.0-0.7); #Lymphocytes 1.3 thou/uL (1.20-3.40); #Monocytes 0.6 thou/uL (0.11-0.59); #Neutrophils 9.2 thou/uL (1.40-6.50); %Basophils 0.3 % (0.0-1.0); %Eosinophils 0.5 % (0.0-10.0); %Lymphocytes 11.8 % (21.0-51.0); %Neutrophils 82.5 % (42.0-75.0); Hemoglobin 12.2 g/dL (14.0-18.0); Mean Corpuscular HGB CONC 33.3 g/dL (32.0-36.0); Mean Corpuscular Hemoglobin 31.5 pg (27.0-31.0); Mean Corpuscular Volume 94.5 fL (78.0-98.0); Mean Platelet Volume 6.8 fL (7.4-10.4); Platelet Count 420 thou/uL (130-400); RBC Distribution Width 12.7 % (11.5-14.5); Red Blood Cell (RBC) Count 3.86 mill/uL (4.70-6.10); White Blood Cell (WBC) Count 11.2 thou/uL (4.8-10.8)
[2018-06-29 07:06] LABS: ALT (SGPT) 9 U/L (8-55); AST (SGOT) 10 U/L (5-34); Albumin 3.9 g/dL (3.4-4.8); Alkaline Phosphatase 130 U/L (40-150); Anion Gap 12 mmol/L (10-20); BUN (Urea Nitrogen) 13 mg/dL (8.4-25.7); Bilirubin, Total 0.5 mg/dL (0.2-1.2); Calc. Creatinine Clearance 0 mL/min (70-130); Calcium 9.3 mg/dL (7.8-10.44); Carbon Dioxide 31 mmol/L (23-31); Chloride 99 mmol/L (98-107); Estimated GFR-MDRD Greater than 90; Globulin 2.9 g/dL (2.4-3.5); Glucose 103 mg/dL (83-110); Potassium 3.2 mmol/L (3.5-5.1); Protein, Total 6.8 g/dL (5.8-8.1); Sodium 139 mmol/L (136-145)
== END 2018-06-29 09:28 ==
LOC: ERS 05:37
DX: E11.649 Type 2 diabetes mellitus with hypoglycemia without coma (principal); K21.9 Gastro-esophageal reflux disease without esophagitis; G20 Parkinson's disease; G30.9 Alzheimer's disease, unspecified; F02.80 Dementia in other diseases classified elsewhere, unspecified severity, without behavioral disturbance, psychotic disturbance, mood disturbance, and anxiety; E78.5 Hyperlipidemia, unspecified; Z86.73 Personal history of transient ischemic attack (TIA), and cerebral infarction without residual deficits; I11.0 Hypertensive heart disease with heart failure; I50.9 Heart failure, unspecified; Z79.4 Long term (current) use of insulin; Z79.82 Long term (current) use of aspirin; Z79.899 Other long term (current) drug therapy
CPT/HCPCS: 36415; 36416; 80053; 85025

== ENCOUNTER 2019-03-10 02:00 | Emergency (ER) | payer MEDICARE ==
[2019-03-10 02:26] LABS: #Basophils 0.1 thou/uL (0.0-0.2); #Eosinphils 0.1 thou/uL (0.0-0.7); #Lymphocytes 2.4 thou/uL (1.20-3.40); #Monocytes 1.1 thou/uL (0.11-0.59); #Neutrophils 10.7 thou/uL (1.40-6.50); %Basophils 0.6 % (0.0-1.0); %Eosinophils 0.6 % (0.0-10.0); %Lymphocytes 16.4 % (21.0-51.0); %Monocytes 7.9 % (0.0-10.0); %Neutrophils 74.6 % (42.0-75.0); Hemoglobin 13.1 g/dL (14.0-18.0); Mean Corpuscular HGB CONC 35.8 g/dL (32.0-36.0); Mean Corpuscular Hemoglobin 32.1 pg (27.0-31.0); Mean Corpuscular Volume 89.5 fL (78.0-98.0); Mean Platelet Volume 7.3 fL (7.4-10.4); Platelet Count 395 thou/uL (130-400); RBC Distribution Width 13.2 % (11.5-14.5); Red Blood Cell (RBC) Count 4.08 mill/uL (4.70-6.10); White Blood Cell (WBC) Count 14.3 thou/uL (4.8-10.8)
[2019-03-10 02:48] LABS: ALT (SGPT) 19 U/L (8-55); AST (SGOT) 14 U/L (5-34); Albumin 3.9 g/dL (3.4-4.8); Alkaline Phosphatase 153 U/L (40-110); Anion Gap 14 mmol/L (10-20); BUN (Urea Nitrogen) 21 mg/dL (8.4-25.7); Bilirubin, Total 0.6 mg/dL (0.2-1.2); Calc. Creatinine Clearance 0 mL/min (70-130); Calcium 9.3 mg/dL (7.8-10.44); Carbon Dioxide 25 mmol/L (23-31); Chloride 100 mmol/L (98-107); Estimated GFR-MDRD 63; Globulin 2.8 g/dL (2.4-3.5); Glucose 271 mg/dL (83-110); Potassium 3.5 mmol/L (3.5-5.1); Protein, Total 6.7 g/dL (5.8-8.1); Sodium 135 mmol/L (136-145)
== END 2019-03-10 03:42 ==
LOC: ERS 02:00
DX: R41.82 Altered mental status, unspecified (principal); G20 Parkinson's disease; K21.9 Gastro-esophageal reflux disease without esophagitis; E11.9 Type 2 diabetes mellitus without complications; G30.9 Alzheimer's disease, unspecified; E78.5 Hyperlipidemia, unspecified; I11.0 Hypertensive heart disease with heart failure; I50.9 Heart failure, unspecified; F20.0 Paranoid schizophrenia; Z79.899 Other long term (current) drug therapy; Z79.4 Long term (current) use of insulin; Z79.82 Long term (current) use of aspirin
CPT/HCPCS: 36415; 80053; 85025; 99285

== ENCOUNTER 2020-01-24 18:47 | Inpatient (IN) | payer MEDICARE, MEDICAID ==
--- NOTE | 2020-01-24 19:43 | RAD ---
Chest one view HISTORY: Cough. Altered mental status. COMPARISON: 06/19/2018. FINDINGS: Cardiac silhouette is magnified by projection. Pulmonary vasculature is unremarkable. Right hemidiaphragm slightly elevated now with slight rightward shift of the mediastinum. Possible abrupt termination of the right mainstem bronchus. Increased density at the right posterior medial senia ng base. IMPRESSION : Component of volume loss of the right lower lobe. Possibly a lesion at the inferior right hilum. Plea se consider CT chest for better characterization.
[2020-01-24 19:58] LABS: #Lymphocytes 2.8 thou/uL (1.20-3.40); #Monocytes 0.6 thou/uL (0.11-0.59); #Neutrophils 5.8 thou/uL (1.40-6.50); %Basophils 0.5 % (0.0-1.0); %Eosinophils 0.3 % (0.0-10.0); %Monocytes 6.3 % (0.0-10.0); %Neutrophils 62.8 % (42.0-75.0); Hemoglobin 13.1 g/dL (14.0-18.0); Mean Corpuscular HGB CONC 33.5 g/dL (32.0-36.0); Mean Corpuscular Hemoglobin 31.5 pg (27.0-31.0); Mean Corpuscular Volume 93.9 fL (78.0-98.0); Mean Platelet Volume 7.6 fL (7.4-10.4); Platelet Count 287 thou/uL (130-400); RBC Distribution Width 12.6 % (11.5-14.5); Red Blood Cell (RBC) Count 4.16 mill/uL (4.70-6.10); White Blood Cell (WBC) Count 9.2 thou/uL (4.8-10.8)
[2020-01-24 20:11] LABS: Bilirubin Negative (Negative); Blood, Urine Negative (Negative); Clarity Clear (Clear); Glucose, Urine (Dipstick) 300 mg/dL (Negative); Ketone, Urine Trace mg/dL (Negative); Leukocyte Negative Leu/uL (Negative); Nitrite Negative (Negative); Protein, Urine (Dipstick) 30 mg/dL (Neg-Trace); RBC/HPF 0-3 HPF (0-3); Specific Gravity, Urine 1.024 (1.002-1.036); Squamous Epithelial 0-3 HPF (0-3); Urobilinogen Normal mg/dL (Less than 2); WBC/HPF 0-3 HPF (0-3)
[2020-01-24 20:15] LABS: Bacteria/HPF 1+ HPF (None Seen)
[2020-01-24 20:21] LABS: ALT (SGPT) 22 U/L (8-55); AST (SGOT) 26 U/L (5-34); Albumin 3.8 g/dL (3.4-4.8); Alkaline Phosphatase 154 U/L (40-110); Anion Gap 17 mmol/L (10-20); BUN (Urea Nitrogen) 48 mg/dL (8.4-25.7); Bilirubin, Total 0.5 mg/dL (0.2-1.2); CK (CPK) 127 U/L (30-200); Calc. Creatinine Clearance 0 mL/min (70-130); Calcium 9.1 mg/dL (7.8-10.44); Carbon Dioxide 26 mmol/L (23-31); Chloride 100 mmol/L (98-107); Estimated GFR-MDRD 32; Globulin 2.6 g/dL (2.4-3.5); Magnesium 1.7 mg/dL (1.6-2.6); Potassium 3.6 mmol/L (3.5-5.1); Protein, Total 6.4 g/dL (5.8-8.1); Sodium 139 mmol/L (136-145)
[2020-01-24 20:25] LABS: Glucose 50 mg/dL (83-110)
[2020-01-24] MEDS ORDERED: Dextrose 50% Abboject 50 ML SYRINGE ONE (20:25)
[2020-01-24] MEDS ORDERED: cefTRIAXone\\ROCEPHIN 2 GM VIAL ONE (20:27)
[2020-01-24 20:40] LABS: CKMB 4.9 ng/mL (0-6.6)
--- NOTE | 2020-01-24 20:47 | CT ---
CT head noncontrast HISTORY: Altered mental status. COMPARISON: 06/19/2018. FINDINGS: There is no evidence of acute intracranial hemorrhage or infarct. Old infarcts involving ea ch basal ganglia are similar in appearance to the prior study. There is no mass effect or shift of midline structures. Diffuse atrophy is again demonstrated. Osseous structures are markedly demineralized. IMPRESSION : Chronic-type findings are stable. No acute intracranial abnormalities are demonstrated. Osteoporosis.
[2020-01-24] MEDS ORDERED: Acetaminophen 325 MG TAB PO PRN (22:29)
[2020-01-24] MEDS ORDERED: Sodium Chloride 0.9% 1,000 ML IV SCH (22:30)
[2020-01-24] MEDS ORDERED: Dexamethasone Sod Phosphate 6 MG in Sodium Chloride 0.9% 50 ML IVPB SCH (23:00)
--- NOTE | 2020-01-25 00:10 | PDOC.HHP ---
Hospitalist HPI - History of Present Illness Altered mental status History of Present Illness: 74-year-old [facility] resident with a history of hypertension, Parkinson's disease, diabetes mellitus type 2,, Alzheimer dementia, history of Covid infection was brought to the emergency department due to altered mental status. Patient's blood glucose was noted to be 30 in the ED. he also has acute renal failure with serum creatinine up to 2, troponin is elevated 0.03. Patient was given 2 amps of D50. Blood sugar is up to 170. He has no leukocytosis. Chest x-ray demonstrated loss of volume in the right lower lobe. UA is negative for UTI. Patient is admitted for further management. Hospitalist ROS - Review of Systems ROS unobtainable: due to mental status - Medication Medications: Medication Instructions Recorded Confirmed Type hydrALAZINE [Apresoline] 50 mg PO TID 12/28/16 01/25/20 History metFORMIN HCl 1,000 mg PO BID 12/28/16 01/25/20 History Acetaminophen [Acetaminophen ER] 650 mg PO Q4HR PRN 02/12/17 01/25/20 History Amlodipine [Norvasc] 10 mg PO DAILY 02/12/17 01/25/20 History Aspirin Chewable [Aspirin Chewable 81 mg PO DAILY 02/12/17 01/25/20 History Tablet] Atorvastatin Calcium [Lipitor] 40 mg PO HS 02/12/17 01/25/20 History Docusate Sodium 100 mg PO DAILY 02/12/17 01/25/20 History Insulin Regular [HumuLIN R Vial] 0 unit SC ASDIR 02/12/17 01/25/20 History Metoprolol Tartrate 25 mg PO BID 02/12/17 01/25/20 History Pantoprazole [Protonix] 40 mg PO DAILY 02/12/17 01/25/20 History ARIPiprazole [Abilify] 5 mg PO HS 06/19/18 01/25/20 History DULoxetine [Cymbalta] 60 mg PO HS 06/19/18 01/25/20 History Donepezil HCl [Aricept] 10 mg PO DAILY 06/19/18 01/25/20 History Lisinopril [Zestril] 20 mg PO DAILY 06/19/18 01/25/20 History Loratadine [Claritin] 10 mg PO DAILY 06/19/18 01/25/20 History Magnesium Oxide 800 mg PO DAILY 06/19/18 01/25/20 History Memantine HCl [Namenda] 10 mg PO BID 06/19/18 01/25/20 History Ondansetron HCl [Zofran] 4 mg PO Q4HR PRN 06/19/18 01/25/20 History guaiFENesin/Dextromethorphan 1 cap PO Q4H PRN 06/19/18 01/25/20 History [Coricidin HBP Liqui-Gels] Ascorbic Acid [C-1000] 1,000 mg PO DAILY 01/25/20 01/25/20 History Cholecalciferol [Vitamin D3] 1,000 unit PO DAILY 01/25/20 01/25/20 History Insulin NPH Hum/Reg Insulin HM 8 units SC 1700 01/25/20 01/25/20 History [Novolin 70-30 100 Unit/ml Vial] Insulin NPH Hum/Reg Insulin HM 16 units SC DAILY-AC 01/25/20 01/25/20 History [Novolin 70-30 100 Unit/ml Vial] Zinc 50 mg PO DAILY 01/25/20 01/25/20 History Hospitalist History - Past Medical History Other Medical History: Insulin-dependent diabetes, chronic kidney disease, Alzheimer dementia, h ypertension, chronic constipation, GERD, schizophrenia. - Past Surgical History Other Surgical History: Hip surgery - Family History Other Family History: Unable to obtain due to AMS. - Social History Smoking Status: Never smoker Alcohol: reports: None Drugs: reports: none Living Situation: Shelter - Exam General Appearance: NAD, ill appearing General - other findings: Somnolent. Eye: PERRL, anicteric sclera ENT: normocephalic atraumatic, moist mucosa Neck: supple, no JVD Heart: RRR, no murmur, diminshed peripheral pulses Respiratory: CTAB, no wheezes, no rales, no ronchi Gastrointestinal: soft, non-tender, non-distended, normal bowel sounds Extremities: no cyanosis, no edema Skin: normal turgor Skin - other findings: Multiple excoriations on bilateral lower extremities Neurological - other findings: Moves all extremities spontaneously, no facial droop. Psychiatric: somnolent Hospitalist Results - Labs Result Diagrams: 01/24/20 19:35 01/24/20 19:35 Lab results: WBC 9.2 thou/uL (4.8-10.8) 01/24/20 19:35 Hgb 13.1 g/dL (14.0-18.0) L 01/24/20 19:35 Hct 39.1 % (42.0-52.0) L 01/24/20 19:35 MCV 93.9 fL (78.0-98.0) 01/24/20 19:35 Plt Count 287 thou/uL (130-400) 01/24/20 19:35 Neutrophils % 62.8 % (42.0-75.0) 01/24/20 19:35 Sodium 139 mmol/L (136-145) 01/24/20 19:35 Potassium 3.6 mmol/L (3.5-5.1) 01/24/20 19:35 Chloride 100 mmol/L (98-107) 01/24/20 19:35 Carbon Dioxide 26 mmol/L (23-31) 01/24/20 19:35 BUN 48 mg/dL (8.4-25.7) H 01/24/20 19:35 Creatinine 2.03 mg/dL (0.7-1.3) H 01/24/20 19:35 Glucose 50 mg/dL (83-110) L* 01/24/20 19:35 Lactic Acid 1.1 mmol/L (0.5-2.2) 01/24/20 19:35 Calcium 9.1 mg/dL (7.8-10.44) 01/24/20 19:35 Total Bilirubin 0.5 mg/dL (0.2-1.2) 01/24/20 19:35 AST 26 U/L (5-34) 01/24/20 19:35 ALT 22 U/L (8-55) 01/24/20 19:35 Alkaline Phosphatase 154 U/L (40-110) H 01/24/20 19:35 Creatine Kinase 127 U/L (30-200) 01/24/20 19:35 CK-MB (CK-2) 4.9 ng/mL (0-6.6) 01/24/20 19:35 Troponin I 0.030 ng/mL (< 0.028) H 01/24/20 23:02 B-Natriuretic Peptide 38.5 pg/mL (0-100) 01/24/20 19:35 Serum Total Protein 6.4 g/dL (5.8-8.1) 01/24/20 19:35 Albumin 3.8 g/dL (3.4-4.8) 01/24/20 19:35 Urine Ketones Trace mg/dL (Negative) A 01/24/20 19:55 Urine Blood Negative (Negative) 01/24/20 19:55 Urine Nitrite Negative (Negative) 01/24/20 19:55 Ur Leukocyte Esterase Negative Thea/uL (Negative) 01/24/20 19:55 Urine RBC 0-3 HPF (0-3) 01/24/20 19:55 Urine WBC 0-3 HPF (0-3) 01/24/20 19:55 Ur Squamous Epith Cells 0-3 HPF (0-3) 01/24/20 19:55 Urine Bacteria 1+ HPF (None Seen) A 01/24/20 19:55 Hospitalist H&P A/P - Problem (1) Pneumonia due to COVID-19 virus Code(s): U07.1 - COVID-19; J12.89 - OTHER VIRAL PNEUMONIA Status: Acute (2) Acute renal failure superimposed on stage 3 chronic kidney disease Code(s): N17.9 - ACUTE KIDNEY FAILURE, UNSPECIFIED; N18.30 - CHRONIC KIDNEY DISEASE, STAGE 3 UNSPECIFIED Status: Acute (3) Metabolic encephalopathy Code(s): G93.41 - METABOLIC ENCEPHALOPATHY Status: Acute (4) Type 2 diabetes mellitus with hypoglycemia Code(s): E11.649 - TYPE 2 DIABETES MELLITUS WITH HYPOGLYCEMIA WITHOUT COMA Status: Acute (5) Elevated troponin Code(s): R77.8 - OTHER SPECIFIED ABNORMALITIES OF PLASMA PROTEINS Status: Acute - Plan Plan: Admit to the medical floor. We will treat Covid pneumonia with IV steroid. Hypoglycemia currently corrected. D5 normal saline We will manage with insulin sliding scale. Hypoglycemia protocol ordered. IV hydration and monitor renal function for improvement. Troponin is currently trended flat, mildly elevated and likely secondary to demand ischemia. Continue to trend troponin. I am unable to discuss advanced directive due to altered mental status.
[2020-01-25] MEDS: Dextrose 5 % And 0.9 % NaCl 1,000 ML IV SCH ×2 (00:57→12:05)
[2020-01-25 01:54] LABS: Troponin I 0.021 ng/mL (< 0.028)
[2020-01-25 02:48] VITALS: BMI 18.4
[2020-01-25 05:57] LABS: Anion Gap 13 mmol/L (10-20); BUN (Urea Nitrogen) 39 mg/dL (8.4-25.7); Calc. Creatinine Clearance 38 mL/min (70-130); Calcium 8.3 mg/dL (7.8-10.44); Carbon Dioxide 26 mmol/L (23-31); Chloride 102 mmol/L (98-107); Estimated GFR-MDRD 49; Glucose 312 mg/dL (83-110); Potassium 4.2 mmol/L (3.5-5.1); Sodium 137 mmol/L (136-145)
[2020-01-25 06:07] LABS: Band 9 % (5-11); Hemoglobin 11.5 g/dL (14.0-18.0); Lymphocytes 12 % (21-51); MDiff Complete? YES; Mean Corpuscular Hemoglobin 30.8 pg (27.0-31.0); Mean Corpuscular Volume 96.4 fL (78.0-98.0); Mean Platelet Volume 7.5 fL (7.4-10.4); Monocytes 3 % (0-10); Neutrophil 76 % (42-75); Platelet Count 246 thou/uL (130-400); RBC Distribution Width 12.8 % (11.5-14.5); Red Blood Cell (RBC) Count 3.75 mill/uL (4.70-6.10); White Blood Cell (WBC) Count 9.3 thou/uL (4.8-10.8)
[2020-01-25] MEDS ORDERED: Dextrose 5% in Water 1,000 ML IV PRN (09:00)
[2020-01-25] MEDS ORDERED: Dextrose 50% Abboject 50 ML SYRINGE SLOW IVP PRN (09:00)
[2020-01-25] MEDS ORDERED: Ondansetron ODT 4 MG TAB PO PRN (10:32)
[2020-01-25] MEDS ORDERED: metFORMIN 500 MG TAB PO SCH (10:45)
[2020-01-25] MEDS ORDERED: Ascorbic Acid 500 mg Chewable Tablet PO SCH (10:45)
[2020-01-25] MEDS ORDERED: Magnesium Oxide 400 MG TAB PO SCH (10:45)
[2020-01-25] MEDS ORDERED: Aspirin Chewable 81 MG TAB PO SCH (10:45)
[2020-01-25] MEDS ORDERED: Amlodipine 10 MG TAB PO SCH (10:45)
[2020-01-25] MEDS ORDERED: Loratadine 10 MG TAB PO SCH (10:45)
[2020-01-25] MEDS ORDERED: Metoprolol Tartrate 25 MG TAB PO SCH (10:45)
[2020-01-25] MEDS ORDERED: Metoprolol Tartrate 50 MG TAB PO SCH ×2 (10:45→21:00)
[2020-01-25] MEDS ORDERED: hydrALAZINE 25 MG TAB PO SCH (10:45)
[2020-01-25] MEDS: Dexamethasone Sod Phosphate 6 MG in Sodium Chloride 0.9% 50 ML IVPB SCH ×2 (11:54→21:58)
[2020-01-25] MEDS: Enoxaparin Sodium 30 MG/0.3 ML SYRINGE SC SCH (12:01)
[2020-01-25 12:03] LABS: SARS-CoV-2 MS2 Positive; SARS-CoV-2 N Gene Positive; SARS-CoV-2 S Gene Positive; SARS-CoV-2 by NAA DETECTED (NotDetected); SARS-CoV-2 orf1ab Positive
[2020-01-25] MEDS: HumaLOG 300 UNITS/3 ML VIAL SC PRN ×2 (12:13→18:19)
--- NOTE | 2020-01-25 17:02 | PDOC.HOSPP ---
- Subjective Encounter Date: 01/25/20 Encounter Time: 17:01 Subjective: Mr. Dougherty was seen today in follow-up of COVID infection and hypoglycemia. He has advanced dementia, and can not voice his concerns. He denies having any pain, or shortness of breath. He is without supplemental oxygen, and is not in distress. - Objective Vital Signs & Weight: Vital Signs (12 hours) Temp Pulse Resp BP Pulse Ox 01/25/20 13:00 98 F 59 L 20 148/70 H 94 L 01/25/20 12:00 48 L 01/25/20 08:00 98.0 F 56 L 16 157/76 H 98 Weight Admit Weight 128 lb 9.6 oz Weight 128 lb 9.6 oz Result Diagrams: 01/25/20 04:58 01/25/20 04:58 Additional Labs: Accuchecks 01/25/20 01/25/20 01/25/20 16:45 12:11 08:28 POC Glucose 294 H 500 H 389 H 01/24/20 23:00 POC Glucose 170 H Hospitalist ROS - Medication Medications: Active Medications Generic Name Dose Route Start Last Admin Trade Name Freq PRN Reason Stop Dose Admin Enoxaparin Sodium 30 mg 01/25/20 09:00 01/25/20 12:01 Enoxaparin Sodium 30 Mg/0.3 Ml Syringe SC 30 mg 0900 ALEJANDRO Administration Dexamethasone Sodium Phosphate 51.5 mls @ 101.756 mls/hr 01/25/20 09:00 01/25/20 11:54 6 mg/ Sodium Chloride IVPB 51.5 mls Q12HR ALEJANDRO Administration Insulin Human Lispro 0 units 01/25/20 09:00 01/25/20 12:13 Humalog 300 Units/3 Ml Vial SC 10 unit .MODERATE SLIDING SC PRN Administration Moderate Correctional Scale - Exam Eye: PERRL, anicteric sclera Respiratory: CTAB, no wheezes, no rales, no ronchi, normal chest expansion Gastrointestinal: soft, non-tender, non-distended, normal bowel sounds, no palpable masses, no hepatomegaly, no splenomegaly Extremities: no cyanosis, no edema Hosp A/P (1) Hypoglycemia Code(s): E16.2 - HYPOGLYCEMIA, UNSPECIFIED Status: Acute (2) Pneumonia due to COVID-19 virus Code(s): U07.1 - COVID-19; J12.89 - OTHER VIRAL PNEUMONIA Status: Chronic (3) Type 2 diabetes mellitus with hypoglycemia Code(s): E11.649 - TYPE 2 DIABETES MELLITUS WITH HYPOGLYCEMIA WITHOUT COMA Status: Chronic (4) Dementia Code(s): F03.90 - UNSPECIFIED DEMENTIA WITHOUT BEHAVIORAL DISTURBANCE Status: Chronic Qualifiers: Dementia type: unspecified type Dementia behavioral disturbance: without behavioral disturbance Qualified Code(s): F03.90 - Unspecified dementia without behavioral disturbance (5) Hypertension Code(s): I10 - ESSENTIAL (PRIMARY) HYPERTENSION Status: Chronic - Plan * Hypoglycemia- his blood glucose is now elevated- will discontinue the D5 infusion * COVID infection- continue Deacdron, He does not have any respiratory symptoms. His main symptom may be poor oral intake- will monitor in the hospital a day or 2 more * Dementia- advanced. He believes it is 1973, but does realize he is in the hospital. Continue Namenda and Aricept * Parkinson"s disease - he does not appear to be taking specific medication for this * HTN- re-start home medications
[2020-01-25] MEDS: HumuLIN 70/30 (300 UNITS/3 ML VIAL) SC SCH (18:12)
[2020-01-25] MEDS: hydrALAZINE 25 MG TAB PO SCH ×2 (18:28→22:50)
[2020-01-25] MEDS: Aripiprazole 10 MG TAB PO SCH (22:49)
[2020-01-25] MEDS: Atorvastatin Calcium 40 MG TAB PO SCH (22:49)
[2020-01-25] MEDS: DULoxetine 60 MG CAP PO SCH (22:50)
[2020-01-25] MEDS: Metoprolol Tartrate 25 MG TAB PO SCH (22:52)
[2020-01-25] MEDS: metFORMIN 500 MG TAB PO SCH (22:52)
[2020-01-26] MEDS ORDERED: HumuLIN 70/30 (300 UNITS/3 ML VIAL) SC SCH (07:30)
[2020-01-26] MEDS: Aspirin Chewable 81 MG TAB PO SCH (08:32)
[2020-01-26] MEDS: Ascorbic Acid 500 mg Chewable Tablet PO SCH (08:32)
[2020-01-26] MEDS: Amlodipine 10 MG TAB PO SCH (08:32)
[2020-01-26] MEDS: Dexamethasone 4 mg/ml Vial SLOW IVP SCH ×2 (08:32→21:06)
[2020-01-26] MEDS: Enoxaparin Sodium 30 MG/0.3 ML SYRINGE SC SCH (08:33)
[2020-01-26] MEDS: hydrALAZINE 25 MG TAB PO SCH ×3 (08:33→21:08)
[2020-01-26] MEDS: Donepezil HCl 10 MG TAB PO SCH (08:33)
[2020-01-26] MEDS: Lisinopril 20 MG TAB PO SCH (08:33)
[2020-01-26] MEDS: metFORMIN 500 MG TAB PO SCH ×2 (08:34→21:07)
[2020-01-26] MEDS: Magnesium Oxide 400 MG TAB PO SCH (08:34)
[2020-01-26] MEDS: Loratadine 10 MG TAB PO SCH (08:34)
[2020-01-26] MEDS: Metoprolol Tartrate 25 MG TAB PO SCH ×2 (08:35→21:07)
[2020-01-26 09:43] LABS: Anion Gap 14 mmol/L (10-20); BUN (Urea Nitrogen) 28 mg/dL (8.4-25.7); Calc. Creatinine Clearance 51 mL/min (70-130); Calcium 8.5 mg/dL (7.8-10.44); Carbon Dioxide 26 mmol/L (23-31); Chloride 105 mmol/L (98-107); Estimated GFR-MDRD 68; Glucose 348 mg/dL (83-110); Potassium 4.3 mmol/L (3.5-5.1); Sodium 141 mmol/L (136-145)
[2020-01-26] MEDS: HumuLIN 70/30 (300 UNITS/3 ML VIAL) SC SCH ×2 (16:25→16:52)
--- NOTE | 2020-01-26 17:48 | PDOC.HOSPP ---
- Subjective Encounter Date: 01/26/20 Encounter Time: 17:46 Subjective: Mr. Dougherty was seen today in follow-up of COVID infection and hypoglycemia. He does not have any complaints. He is better oriented today. - Objective Vital Signs & Weight: Vital Signs (12 hours) Temp Pulse Resp BP Pulse Ox 01/26/20 16:59 98.1 F 59 L 20 175/85 H 01/26/20 16:28 59 L 01/26/20 12:00 97.5 F L 59 L 18 172/78 H 97 01/26/20 09:19 98.5 F 63 20 174/83 H 93 L Weight Admit Weight 128 lb 9.6 oz Weight 128 lb 9.6 oz I&O: 01/25/20 01/26/20 01/27/20 06:59 06:59 06:59 Intake Total 1839 Balance 1839 Result Diagrams: 01/25/20 04:58 01/26/20 08:53 Additional Labs: Accuchecks 01/26/20 01/26/20 01/25/20 16:31 10:28 21:55 POC Glucose 138 H 251 H 203 H 01/25/20 01:00 POC Glucose 147 H Hospitalist ROS - Medication Medications: Active Medications Generic Name Dose Route Start Last Admin Trade Name Freq PRN Reason Stop Dose Admin Amlodipine Besylate 10 mg 01/26/20 09:00 01/26/20 08:32 Amlodipine 10 Mg Tab PO 10 mg DAILY ALEJANDRO Administration Aripiprazole 5 mg 01/25/20 21:00 01/25/20 22:49 Aripiprazole 10 Mg Tab PO Not Given HS ALEJANDRO Ascorbic Acid 1,000 mg 01/26/20 09:00 01/26/20 08:32 Ascorbic Acid 500 Mg Chewable Tablet PO 1,000 mg DAILY ALEJANDRO Administration Aspirin 81 mg 01/26/20 09:00 01/26/20 08:32 Aspirin Chewable 81 Mg Tab PO 81 mg DAILY ALEJANDRO Administration Atorvastatin Calcium 40 mg 01/25/20 21:00 01/25/20 22:49 Atorvastatin Calcium 40 Mg Tab PO Not Given HS ALEJANDRO Dexamethasone 6 mg 01/26/20 09:00 01/26/20 08:32 Dexamethasone 4 Mg/Ml Vial SLOW IVP 6 mg BID ALEJANDRO Administration Donepezil HCl 10 mg 01/26/20 09:00 01/26/20 08:33 Donepezil Hcl 10 Mg Tab PO 10 mg DAILY ALEJANDRO Administration Duloxetine HCl 60 mg 01/25/20 21:00 01/25/20 22:50 Duloxetine 60 Mg Cap PO Not Given HS [facility] Enoxaparin Sodium 30 mg 01/25/20 09:00 01/26/20 08:33 Enoxaparin Sodium 30 Mg/0.3 Ml Syringe SC 30 mg 0900 ALEJANDRO Administration Hydralazine HCl 50 mg 01/25/20 15:00 01/26/20 16:28 Hydralazine 25 Mg Tab PO 50 mg TID ALEJANDRO Administration Insulin Human Isoph/Insulin Regular 8 units 01/25/20 17:00 01/26/20 16:52 Humulin 70/30 (300 Units/3 Ml Vial) SC Not Given 1700 [facility] Insulin Human Lispro 0 units 01/25/20 09:00 01/25/20 18:19 Humalog 300 Units/3 Ml Vial SC 6 unit .MODERATE SLIDING SC PRN Administration Moderate Correctional Scale Lisinopril 20 mg 01/26/20 09:00 01/26/20 08:33 Lisinopril 20 Mg Tab PO 20 mg DAILY ALEJANDRO Administration Loratadine 10 mg 01/26/20 09:00 01/26/20 08:34 Loratadine 10 Mg Tab PO 10 mg DAILY ALEJANDRO Administration Magnesium Oxide 800 mg 01/26/20 09:00 01/26/20 08:34 Magnesium Oxide 400 Mg Tab PO 800 mg DAILY ALEJANDRO Administration Memantine 10 mg 01/25/20 21:00 01/26/20 08:34 Memantine Hcl 10 Mg Tab PO 10 mg BID ALEJANDRO Administration Metformin HCl 1,000 mg 01/25/20 21:00 01/26/20 08:34 Metformin 500 Mg Tab PO 1,000 mg BID ALEJANDRO Administration Metoprolol Tartrate 25 mg 01/25/20 21:00 01/26/20 08:35 Metoprolol Tartrate 25 Mg Tab PO 25 mg BID ALEJANDRO Administration Sodium Chloride 10 ml 01/26/20 09:00 01/26/20 08:35 Flush - Normal Saline 10 Ml Syringe IVF 10 ml Q12HR ALEJANDRO Administration - Exam Eye: PERRL, anicteric sclera Heart: RRR, no murmur, no gallops, no rubs, normal peripheral pulses Respiratory: rales (+ occasional rales, no rhonchi) Gastrointestinal: soft, non-tender, non-distended, normal bowel sounds, no palpable masses, no hepatomegaly Extremities: no cyanosis, no edema Hosp A/P (1) Hypoglycemia Code(s): E16.2 - HYPOGLYCEMIA, UNSPECIFIED Status: Acute (2) Pneumonia due to COVID-19 virus Code(s): U07.1 - COVID-19; J12.89 - OTHER VIRAL PNEUMONIA Status: Chronic (3) Type 2 diabetes mellitus with hypoglycemia Code(s): E11.649 - TYPE 2 DIABETES MELLITUS WITH HYPOGLYCEMIA WITHOUT COMA Status: Chronic (4) Dementia Code(s): F03.90 - UNSPECIFIED DEMENTIA WITHOUT BEHAVIORAL DISTURBANCE Status: Chronic Qualifiers: Dementia type: unspecified type Dementia behavioral disturbance: without behavioral disturbance Qualified Code(s): F03.90 - Unspecified dementia without behavioral disturbance (5) Hypertension Code(s): I10 - ESSENTIAL (PRIMARY) HYPERTENSION Status: Chronic - Plan * Hypoglycemia- his blood glucose is now elevated- he is off the D5 infusion. He has been pocketing his medications this morning, and therefore most medications were not administered. * Plan is to try to give medication spaced out during the day, and if he tolerates this he could be discharged, as long as his blood glucose is stable * COVID infection- continue Deacdron, He does not have any respiratory symptoms. His main symptom may be poor oral intake- will monitor in the hospital. If he continues to be stable- he does not need hospitalization for this * Dementia- advanced. waxes and wanes- Continue Namenda and Aricept * Parkinson"s disease - he does not appear to be taking specific medication for this * HTN-hopefully he will be able to take his medications tomorrow, and will monitor the trend
[2020-01-26] MEDS: Aripiprazole 10 MG TAB PO SCH (21:04)
[2020-01-26] MEDS: Atorvastatin Calcium 40 MG TAB PO SCH (21:06)
[2020-01-26] MEDS: DULoxetine 60 MG CAP PO SCH ×2 (21:08→22:20)
[2020-01-27] MEDS: HumaLOG 300 UNITS/3 ML VIAL SC PRN (06:14)
[2020-01-27] MEDS: Enoxaparin Sodium 30 MG/0.3 ML SYRINGE SC SCH (08:33)
[2020-01-27] MEDS: HumuLIN 70/30 (300 UNITS/3 ML VIAL) SC SCH ×2 (08:33→15:49)
[2020-01-27] MEDS: Dexamethasone 4 mg/ml Vial SLOW IVP SCH ×2 (08:33→21:50)
[2020-01-27] MEDS: hydrALAZINE 25 MG TAB PO SCH ×3 (09:00→19:16)
[2020-01-27] MEDS: Donepezil HCl 10 MG TAB PO SCH (09:00)
[2020-01-27] MEDS: Amlodipine 10 MG TAB PO SCH (09:00)
[2020-01-27] MEDS: Ascorbic Acid 500 mg Chewable Tablet PO SCH (09:00)
[2020-01-27] MEDS: metFORMIN 500 MG TAB PO SCH ×2 (09:00→21:50)
[2020-01-27] MEDS: Metoprolol Tartrate 25 MG TAB PO SCH ×2 (09:00→19:17)
[2020-01-27] MEDS: Aspirin Chewable 81 MG TAB PO SCH (09:00)
[2020-01-27] MEDS: Loratadine 10 MG TAB PO SCH (09:00)
[2020-01-27] MEDS: Magnesium Oxide 400 MG TAB PO SCH (09:00)
[2020-01-27] MEDS: Lisinopril 20 MG TAB PO SCH (09:00)
--- NOTE | 2020-01-27 15:19 | PDOC.HOSPP ---
- Subjective Encounter Date: 01/27/20 Encounter Time: 07:00 Subjective: Patient seen for follow-up regarding COVID-19 pneumonia. Could not complete review of systems secondary to patient's mental status. - Objective Vital Signs & Weight: Vital Signs (12 hours) Temp Pulse Resp BP Pulse Ox 01/27/20 09:00 66 01/27/20 08:10 97.8 F 66 18 153/75 H 98 01/27/20 04:00 97.8 F 56 L 17 158/73 H 97 Weight Admit Weight 128 lb 9.6 oz Weight 128 lb 9.6 oz I&O: 01/26/20 01/27/20 01/28/20 06:59 06:59 06:59 Intake Total 1839 240 240 Balance 1839 240 240 Result Diagrams: 01/25/20 04:58 01/26/20 08:53 Additional Labs: Accuchecks 01/27/20 01/27/20 01/26/20 10:53 06:02 20:15 POC Glucose 210 H 466 H 229 H 01/26/20 16:31 POC Glucose 138 H I reviewed patient's labs and MAR EKG Reviewed by me: Yes (Normal sinus rhythm on telemetry) Hospitalist ROS - Review of Systems ROS unobtainable: due to mental status - Medication Medications: Active Medications Generic Name Dose Route Start Last Admin Trade Name Jermain PRN Reason Stop Dose Admin Amlodipine Besylate 10 mg 01/26/20 09:00 01/27/20 09:00 Amlodipine 10 Mg Tab PO Not Given DAILY ALEJANDRO Aripiprazole 5 mg 01/25/20 21:00 01/26/20 21:04 Aripiprazole 10 Mg Tab PO 5 mg HS ALEJANDRO Administration Ascorbic Acid 1,000 mg 01/26/20 09:00 01/27/20 09:00 Ascorbic Acid 500 Mg Chewable Tablet PO Not Given DAILY ALEJANDRO Aspirin 81 mg 01/26/20 09:00 01/27/20 09:00 Aspirin Chewable 81 Mg Tab PO Not Given DAILY ALEJANDRO Atorvastatin Calcium 40 mg 01/25/20 21:00 01/26/20 21:06 Atorvastatin Calcium 40 Mg Tab PO 40 mg HS ALEJANDRO Administration Dexamethasone 6 mg 01/26/20 09:00 01/27/20 08:33 Dexamethasone 4 Mg/Ml Vial SLOW IVP 6 mg BID ALEJANDRO Administration Donepezil HCl 10 mg 01/26/20 09:00 01/27/20 09:00 Donepezil Hcl 10 Mg Tab PO Not Given DAILY [facility] Duloxetine HCl 60 mg 01/25/20 21:00 01/26/20 22:20 Duloxetine 60 Mg Cap PO Not Given HS [facility] Enoxaparin Sodium 30 mg 01/25/20 09:00 01/27/20 08:33 Enoxaparin Sodium 30 Mg/0.3 Ml Syringe SC 30 mg 0900 [facility] Administration Hydralazine HCl 50 mg 01/25/20 15:00 01/27/20 09:00 Hydralazine 25 Mg Tab PO Not Given TID [facility] Insulin Human Isoph/Insulin Regular 8 units 01/25/20 17:00 01/26/20 16:52 Humulin 70/30 (300 Units/3 Ml Vial) SC Not Given 1700 [facility] Insulin Human Isoph/Insulin Regular 20 units 01/27/20 07:30 01/27/20 08:33 Humulin 70/30 (300 Units/3 Ml Vial) SC 20 unit DAILY-[facility] Administration Insulin Human Lispro 0 units 01/25/20 09:00 01/27/20 06:14 Humalog 300 Units/3 Ml Vial SC 10 unit .MODERATE SLIDING SC PRN Administration Moderate Correctional Scale Lisinopril 20 mg 01/26/20 09:00 01/27/20 09:00 Lisinopril 20 Mg Tab PO Not Given DAILY [facility] Loratadine 10 mg 01/26/20 09:00 01/27/20 09:00 Loratadine 10 Mg Tab PO Not Given DAILY [facility] Magnesium Oxide 800 mg 01/26/20 09:00 01/27/20 09:00 Magnesium Oxide 400 Mg Tab PO Not Given DAILY [facility] Memantine 10 mg 01/25/20 21:00 01/27/20 09:00 Memantine Hcl 10 Mg Tab PO Not Given BID [facility] Metformin HCl 1,000 mg 01/25/20 21:00 01/27/20 09:00 Metformin 500 Mg Tab PO Not Given BID [facility] Metoprolol Tartrate 25 mg 01/25/20 21:00 01/27/20 09:00 Metoprolol Tartrate 25 Mg Tab PO Not Given BID [facility] Sodium Chloride 10 ml 01/26/20 09:00 01/27/20 08:40 Flush - Normal Saline 10 Ml Syringe IVF 10 ml Q12HR ALEJANDRO Administration - Exam General Appearance: awake alert Eye: anicteric sclera ENT: moist mucosa Neck: supple Heart: RRR Respiratory: CTAB Gastrointestinal: soft, non-tender Skin: no rashes Musculoskeletal: no muscle wasting Psychiatric - other findings: Unable to assess Hosp A/P - Plan -Assessment (1) Pneumonia due to COVID-19 virus Code(s): U07.1 - COVID-19; J12.89 - OTHER VIRAL PNEUMONIA Status: Acute (2) Type 2 diabetes mellitus Status: Chronic (3) Dementia Code(s): F03.90 - UNSPECIFIED DEMENTIA WITHOUT BEHAVIORAL DISTURBANCE Status: Chronic Qualifiers: Dementia type: unspecified type Dementia behavioral disturbance: without behavioral disturbance Qualified Code(s): F03.90 - Unspecified dementia without behavioral disturbance (4) Hypertension Code(s): I10 - ESSENTIAL (PRIMARY) HYPERTENSION Status: Chronic (5) Hypoglycemia Code(s): E16.2 - HYPOGLYCEMIA, UNSPECIFIED Status: Chronic - Plan * Plan is to try to give medication spaced out during the day, and if he tolerates this he could be discharged, as long as his blood glucose is stable * COVID infection- continue dexamethasone. He does not have any respiratory symptoms. His main symptom may be poor oral intake- will monitor in the hospital. If he continues to be stable- he does not need hospitalization for this * Dementia- Continue Namenda and Aricept * Parkinson"s disease - he does not appear to be taking specific medication for this * HTN-improved blood pressure control.
[2020-01-27] MEDS: Aripiprazole 10 MG TAB PO SCH (19:17)
[2020-01-27] MEDS: Atorvastatin Calcium 40 MG TAB PO SCH (19:17)
[2020-01-27] MEDS: DULoxetine 60 MG CAP PO SCH (21:44)
[2020-01-27] MEDS: Enoxaparin Sodium 40 MG/0.4 ML SYRINGE SC SCH (21:49)
[2020-01-28 05:08] LABS: #Basophils 0.1 thou/uL (0.0-0.2); #Monocytes 0.2 thou/uL (0.11-0.59); #Neutrophils 10.1 thou/uL (1.40-6.50); %Basophils 0.5 % (0.0-1.0); %Eosinophils 0.1 % (0.0-10.0); %Lymphocytes 8.6 % (21.0-51.0); %Monocytes 1.4 % (0.0-10.0); %Neutrophils 89.4 % (42.0-75.0); Hemoglobin 12.1 g/dL (14.0-18.0); Mean Corpuscular HGB CONC 32.6 g/dL (32.0-36.0); Mean Corpuscular Hemoglobin 31.1 pg (27.0-31.0); Mean Corpuscular Volume 95.3 fL (78.0-98.0); Mean Platelet Volume 8.4 fL (7.4-10.4); Platelet Count 252 thou/uL (130-400); RBC Distribution Width 12.5 % (11.5-14.5); White Blood Cell (WBC) Count 11.3 thou/uL (4.8-10.8)
[2020-01-28 05:29] LABS: Anion Gap 18 mmol/L (10-20); BUN (Urea Nitrogen) 28 mg/dL (8.4-25.7); Calc. Creatinine Clearance 44 mL/min (70-130); Calcium 8.4 mg/dL (7.8-10.44); Carbon Dioxide 22 mmol/L (23-31); Chloride 96 mmol/L (98-107); Estimated GFR-MDRD 58; Potassium 4.2 mmol/L (3.5-5.1); Sodium 132 mmol/L (136-145)
[2020-01-28 05:34] LABS: Glucose 634 mg/dL (83-110)
[2020-01-28] MEDS: HumaLOG 300 UNITS/3 ML VIAL SC PRN ×2 (05:57→11:18)
[2020-01-28] MEDS: Enoxaparin Sodium 40 MG/0.4 ML SYRINGE SC SCH ×2 (07:55→19:30)
[2020-01-28] MEDS: Magnesium Oxide 400 MG TAB PO SCH (07:56)
[2020-01-28] MEDS: Lisinopril 20 MG TAB PO SCH (07:56)
[2020-01-28] MEDS: Loratadine 10 MG TAB PO SCH (07:56)
[2020-01-28] MEDS: metFORMIN 500 MG TAB PO SCH ×2 (07:56→22:03)
[2020-01-28] MEDS: Donepezil HCl 10 MG TAB PO SCH (07:57)
[2020-01-28] MEDS: Zinc Sulfate 220 MG CAP PO SCH (07:57)
[2020-01-28] MEDS: Amlodipine 10 MG TAB PO SCH (07:57)
[2020-01-28] MEDS: Ascorbic Acid 500 mg Chewable Tablet PO SCH (07:57)
[2020-01-28] MEDS: HumuLIN 70/30 (300 UNITS/3 ML VIAL) SC SCH ×2 (07:58→17:24)
[2020-01-28] MEDS: Dexamethasone 4 mg/ml Vial SLOW IVP SCH ×2 (07:58→19:30)
[2020-01-28] MEDS: Metoprolol Tartrate 25 MG TAB PO SCH ×2 (07:58→19:33)
[2020-01-28] MEDS: hydrALAZINE 25 MG TAB PO SCH ×3 (07:58→19:32)
[2020-01-28] MEDS: Aspirin Chewable 81 MG TAB PO SCH (07:58)
[2020-01-28] MEDS ORDERED: Ondansetron PF 4 MG/2 ML Vial IVP PRN (13:38)
--- NOTE | 2020-01-28 17:25 | PDOC.HOSPP ---
- Subjective Encounter Date: 01/28/20 Encounter Time: 13:00 Subjective: Patient seen for follow-up regarding COVID-19 infection. Not answering questions, could not complete review of systems. - Objective Vital Signs & Weight: Vital Signs (12 hours) Temp Pulse Resp BP BP Pulse Ox 01/28/20 15:20 97.7 F 57 L 18 129/61 93 L 01/28/20 11:25 98 F 63 16 116/59 L 97 01/28/20 08:05 97.9 F 71 18 143/72 H 99 Weight Admit Weight 128 lb 9.6 oz Weight 128 lb 9.6 oz I&O: 01/27/20 01/28/20 01/29/20 06:59 06:59 06:59 Intake Total 240 1080 Balance 240 1080 Result Diagrams: 01/28/20 04:57 01/28/20 04:57 Additional Labs: Accuchecks 01/28/20 01/28/20 01/28/20 16:52 12:50 10:07 POC Glucose 207 H 99 320 H 01/27/20 20:03 POC Glucose 297 H Labs and MAR reviewed by me EKG Reviewed by me: Yes (Telemetry shows normal sinus rhythm) Hospitalist ROS - Review of Systems ROS unobtainable: due to mental status - Medication Medications: Active Medications Generic Name Dose Route Start Last Admin Trade Name Jermain PRN Reason Stop Dose Admin Amlodipine Besylate 10 mg 01/26/20 09:00 01/28/20 07:57 Amlodipine 10 Mg Tab PO 10 mg DAILY ALEJANDRO Administration Aripiprazole 5 mg 01/25/20 21:00 01/27/20 19:17 Aripiprazole 10 Mg Tab PO 5 mg HS ALEJANDRO Administration Ascorbic Acid 1,000 mg 01/26/20 09:00 01/28/20 07:57 Ascorbic Acid 500 Mg Chewable Tablet PO 1,000 mg DAILY ALEJANDRO Administration Aspirin 81 mg 01/26/20 09:00 01/28/20 07:58 Aspirin Chewable 81 Mg Tab PO 81 mg DAILY ALEJANDRO Administration Atorvastatin Calcium 40 mg 01/25/20 21:00 01/27/20 19:17 Atorvastatin Calcium 40 Mg Tab PO 40 mg HS ALEJANDRO Administration Dexamethasone 6 mg 01/26/20 09:00 01/28/20 07:58 Dexamethasone 4 Mg/Ml Vial SLOW IVP 6 mg BID ALEJANDRO Administration Dextrose/Water 25 gm 01/25/20 09:00 01/28/20 16:38 Dextrose 50% Abboject 50 Ml Syringe SLOW IVP 25 gm PRN PRN Administration Hypoglycemia Donepezil HCl 10 mg 01/26/20 09:00 01/28/20 07:57 Donepezil Hcl 10 Mg Tab PO 10 mg DAILY ALEJANDRO Administration Duloxetine HCl 60 mg 01/25/20 21:00 01/27/20 21:44 Duloxetine 60 Mg Cap PO Not Given HS ALEJANDRO Enoxaparin Sodium 40 mg 01/27/20 21:00 01/28/20 07:55 Enoxaparin Sodium 40 Mg/0.4 Ml Syringe SC 40 mg 0900,2099 ALEJANDRO Administration Hydralazine HCl 50 mg 01/25/20 15:00 01/28/20 14:18 Hydralazine 25 Mg Tab PO Not Given TID ALEJANDRO Insulin Human Isoph/Insulin Regular 8 units 01/25/20 17:00 01/27/20 15:49 Humulin 70/30 (300 Units/3 Ml Vial) SC Not Given 1700 [facility] Insulin Human Isoph/Insulin Regular 20 units 01/27/20 07:30 01/28/20 07:58 Humulin 70/30 (300 Units/3 Ml Vial) SC 20 unit DAILY-[facility] ALEJANDRO Administration Insulin Human Lispro 0 units 01/25/20 09:00 01/28/20 11:18 Humalog 300 Units/3 Ml Vial SC 8 unit .MODERATE SLIDING SC PRN Administration Moderate Correctional Scale Lisinopril 20 mg 01/26/20 09:00 01/28/20 07:56 Lisinopril 20 Mg Tab PO 20 mg DAILY ALEJANDRO Administration Loratadine 10 mg 01/26/20 09:00 01/28/20 07:56 Loratadine 10 Mg Tab PO 10 mg DAILY ALEJANDRO Administration Magnesium Oxide 800 mg 01/26/20 09:00 01/28/20 07:56 Magnesium Oxide 400 Mg Tab PO 800 mg DAILY ALEJANDRO Administration Memantine 10 mg 01/25/20 21:00 01/28/20 07:57 Memantine Hcl 10 Mg Tab PO 10 mg BID ALEJANDRO Administration Metformin HCl 1,000 mg 01/25/20 21:00 01/28/20 07:56 Metformin 500 Mg Tab PO 1,000 mg BID ALEJANDRO Administration Metoprolol Tartrate 25 mg 01/25/20 21:00 01/28/20 07:58 Metoprolol Tartrate 25 Mg Tab PO 25 mg BID ALEJANDRO Administration Ondansetron HCl 4 mg 01/28/20 13:38 01/28/20 14:00 Ondansetron Pf 4 Mg/2 Ml Vial IVP 4 mg Q6H PRN Administration Nausea/Vomiting Sodium Chloride 10 ml 01/26/20 09:00 01/28/20 07:59 Flush - Normal Saline 10 Ml Syringe IVF 10 ml Q12HR ALEJANDRO Administration Zinc Sulfate 220 mg 01/28/20 09:00 01/28/20 07:57 Zinc Sulfate 220 Mg Cap PO 220 mg DAILY ALEJANDRO Administration - Exam General Appearance: awake alert ENT: normocephalic atraumatic, no oropharyngeal lesions Neck: supple Heart: RRR Respiratory: CTAB Gastrointestinal: soft, normal bowel sounds Skin: no rashes Psychiatric: normal affect Hosp A/P - Plan -Assessment (1) Pneumonia due to COVID-19 virus Code(s): U07.1 - COVID-19; J12.89 - OTHER VIRAL PNEUMONIA Status: Acute (2) Type 2 diabetes mellitus Status: Chronic (3) Dementia Code(s): F03.90 - UNSPECIFIED DEMENTIA WITHOUT BEHAVIORAL DISTURBANCE Status: Chronic Qualifiers: Dementia type: unspecified type Dementia behavioral disturbance: without behavioral disturbance Qualified Code(s): F03.90 - Unspecified dementia without behavioral disturbance (4) Hypertension Code(s): I10 - ESSENTIAL (PRIMARY) HYPERTENSION Status: Chronic - Plan * Blood glucose elevated today. Continue insulin sliding scale. * COVID infection- continue dexamethasone. * Dementia-patient is on Namenda and Aricept * HTN-controlled and stable.
[2020-01-28] MEDS: Aripiprazole 10 MG TAB PO SCH (19:32)
[2020-01-28] MEDS: Atorvastatin Calcium 40 MG TAB PO SCH (19:32)
[2020-01-28] MEDS: DULoxetine 60 MG CAP PO SCH (19:33)
[2020-01-29 05:28] LABS: #Lymphocytes 1.3 thou/uL (1.20-3.40); #Monocytes 0.3 thou/uL (0.11-0.59); #Neutrophils 12.3 thou/uL (1.40-6.50); %Basophils 0.1 % (0.0-1.0); %Eosinophils 0.1 % (0.0-10.0); %Lymphocytes 9.2 % (21.0-51.0); %Neutrophils 88.7 % (42.0-75.0); Hemoglobin 12.3 g/dL (14.0-18.0); Mean Corpuscular HGB CONC 33.3 g/dL (32.0-36.0); Mean Corpuscular Hemoglobin 31.1 pg (27.0-31.0); Mean Corpuscular Volume 93.4 fL (78.0-98.0); Mean Platelet Volume 8.4 fL (7.4-10.4); Platelet Count 267 thou/uL (130-400); RBC Distribution Width 12.4 % (11.5-14.5); Red Blood Cell (RBC) Count 3.94 mill/uL (4.70-6.10); White Blood Cell (WBC) Count 13.8 thou/uL (4.8-10.8)
[2020-01-29 05:50] LABS: Anion Gap 15 mmol/L (10-20); BUN (Urea Nitrogen) 29 mg/dL (8.4-25.7); Calc. Creatinine Clearance 52 mL/min (70-130); Calcium 8.6 mg/dL (7.8-10.44); Carbon Dioxide 31 mmol/L (23-31); Chloride 97 mmol/L (98-107); Estimated GFR-MDRD 70; Glucose 357 mg/dL (83-110); Potassium 4.3 mmol/L (3.5-5.1); Sodium 139 mmol/L (136-145)
[2020-01-29] MEDS: HumaLOG 300 UNITS/3 ML VIAL SC PRN ×3 (06:28→22:12)
[2020-01-29] MEDS: HumuLIN 70/30 (300 UNITS/3 ML VIAL) SC SCH ×3 (09:01→17:09)
[2020-01-29] MEDS: Loratadine 10 MG TAB PO SCH ×2 (09:02→09:39)
[2020-01-29] MEDS: Enoxaparin Sodium 40 MG/0.4 ML SYRINGE SC SCH ×2 (09:02→19:22)
[2020-01-29] MEDS: hydrALAZINE 25 MG TAB PO SCH ×4 (09:02→19:22)
[2020-01-29] MEDS: Magnesium Oxide 400 MG TAB PO SCH ×2 (09:03→09:39)
[2020-01-29] MEDS: Lisinopril 20 MG TAB PO SCH ×2 (09:04→09:39)
[2020-01-29] MEDS: metFORMIN 500 MG TAB PO SCH ×3 (09:04→19:23)
[2020-01-29] MEDS: Zinc Sulfate 220 MG CAP PO SCH ×2 (09:04→09:40)
[2020-01-29] MEDS: Amlodipine 10 MG TAB PO SCH ×2 (09:04→09:38)
[2020-01-29] MEDS: Donepezil HCl 10 MG TAB PO SCH ×2 (09:04→09:39)
[2020-01-29] MEDS: Ascorbic Acid 500 mg Chewable Tablet PO SCH ×2 (09:04→09:39)
[2020-01-29] MEDS: Aspirin Chewable 81 MG TAB PO SCH ×2 (09:04→09:39)
[2020-01-29] MEDS: Dexamethasone 4 mg/ml Vial SLOW IVP SCH ×2 (09:05→19:23)
[2020-01-29] MEDS: Metoprolol Tartrate 25 MG TAB PO SCH ×3 (09:05→19:23)
[2020-01-29] MEDS ORDERED: Megestrol Acetate 40 MG TAB PO SCH (13:15)
--- NOTE | 2020-01-29 15:59 | PDOC.HOSPP ---
- Subjective Encounter Date: 01/29/20 Encounter Time: 09:00 Subjective: Pt seen for followup re: covid-19 infection. Pt not answering questions - ROS was not completed. - Objective Vital Signs & Weight: Vital Signs (12 hours) Temp Pulse Resp BP Pulse Ox 01/29/20 11:24 99.3 F 66 20 127/69 96 01/29/20 09:15 99.3 F 77 18 129/73 95 Weight Admit Weight 128 lb 9.6 oz Weight 128 lb 9.6 oz I&O: 01/28/20 01/29/20 01/30/20 06:59 06:59 06:59 Intake Total 1080 720 Output Total 150 Balance 1080 570 Result Diagrams: 01/29/20 04:56 01/29/20 04:56 Additional Labs: Accuchecks 01/29/20 01/29/20 01/29/20 11:23 05:18 00:10 POC Glucose 331 H 339 H 151 H 01/28/20 01/28/20 19:39 16:52 POC Glucose 107 H 207 H I reviewed labs and MARs EKG Reviewed by me: Yes (Tele: NSR) Hospitalist ROS - Review of Systems ROS unobtainable: due to mental status - Medication Medications: Active Medications Generic Name Dose Route Start Last Admin Trade Name Freq PRN Reason Stop Dose Admin Amlodipine Besylate 10 mg 01/26/20 09:00 01/29/20 09:38 Amlodipine 10 Mg Tab PO Not Given DAILY ALEJANDRO Aripiprazole 5 mg 01/25/20 21:00 01/28/20 19:32 Aripiprazole 10 Mg Tab PO 5 mg HS ALEJANDRO Administration Ascorbic Acid 1,000 mg 01/26/20 09:00 01/29/20 09:39 Ascorbic Acid 500 Mg Chewable Tablet PO Not Given DAILY ALEJANDRO Aspirin 81 mg 01/26/20 09:00 01/29/20 09:39 Aspirin Chewable 81 Mg Tab PO Not Given DAILY ALEJANDRO Atorvastatin Calcium 40 mg 01/25/20 21:00 01/28/20 19:32 Atorvastatin Calcium 40 Mg Tab PO 40 mg HS ALEJANDRO Administration Dexamethasone 6 mg 01/26/20 09:00 01/29/20 09:05 Dexamethasone 4 Mg/Ml Vial SLOW IVP 6 mg BID ALEJANDRO Administration Dextrose/Water 25 gm 01/25/20 09:00 01/28/20 16:38 Dextrose 50% Abboject 50 Ml Syringe SLOW IVP 25 gm PRN PRN Administration Hypoglycemia Donepezil HCl 10 mg 01/26/20 09:00 01/29/20 09:39 Donepezil Hcl 10 Mg Tab PO Not Given DAILY [facility] Duloxetine HCl 60 mg 01/25/20 21:00 01/28/20 19:33 Duloxetine 60 Mg Cap PO Not Given HS [facility] Enoxaparin Sodium 40 mg 01/27/20 21:00 01/29/20 09:02 Enoxaparin Sodium 40 Mg/0.4 Ml Syringe SC 40 mg 0900,2100 [facility] Administration Hydralazine HCl 50 mg 01/25/20 15:00 01/29/20 15:31 Hydralazine 25 Mg Tab PO Not Given TID [facility] Insulin Human Isoph/Insulin Regular 8 units 01/25/20 17:00 01/28/20 17:24 Humulin 70/30 (300 Units/3 Ml Vial) SC Not Given 1700 [facility] Insulin Human Isoph/Insulin Regular 20 units 01/27/20 07:30 01/29/20 09:38 Humulin 70/30 (300 Units/3 Ml Vial) SC Not Given DAILY-[facility] Insulin Human Lispro 0 units 01/29/20 06:30 01/29/20 06:28 Humalog 300 Units/3 Ml Vial SC 5 unit .MILD SLIDING SCALE PRN Administration MILD SLIDING SCALE Protocol Lisinopril 20 mg 01/26/20 09:00 01/29/20 09:39 Lisinopril 20 Mg Tab PO Not Given DAILY [facility] Loratadine 10 mg 01/26/20 09:00 01/29/20 09:39 Loratadine 10 Mg Tab PO Not Given DAILY [facility] Magnesium Oxide 800 mg 01/26/20 09:00 01/29/20 09:39 Magnesium Oxide 400 Mg Tab PO Not Given DAILY [facility] Memantine 10 mg 01/25/20 21:00 01/29/20 09:39 Memantine Hcl 10 Mg Tab PO Not Given BID [facility] Metformin HCl 1,000 mg 01/25/20 21:00 01/29/20 09:40 Metformin 500 Mg Tab PO Not Given BID [facility] Metoprolol Tartrate 25 mg 01/25/20 21:00 01/29/20 09:40 Metoprolol Tartrate 25 Mg Tab PO Not Given BID [facility] Ondansetron HCl 4 mg 01/28/20 13:38 01/28/20 14:00 Ondansetron Pf 4 Mg/2 Ml Vial IVP 4 mg Q6H PRN Administration Nausea/Vomiting Sodium Chloride 10 ml 01/26/20 09:00 01/29/20 09:05 Flush - Normal Saline 10 Ml Syringe IVF 10 ml Q12HR ALEJANDRO Administration Zinc Sulfate 220 mg 01/28/20 09:00 01/29/20 09:40 Zinc Sulfate 220 Mg Cap PO Not Given DAILY ALEJANDRO - Exam General Appearance: awake alert Eye: anicteric sclera ENT: moist mucosa Neck: supple Heart: RRR, no rubs Respiratory: CTAB Gastrointestinal: soft, normal bowel sounds Skin: no rashes Psychiatric: normal behavior Hosp A/P - Plan -Assessment (1) Pneumonia due to COVID-19 virus Code(s): U07.1 - COVID-19; J12.89 - OTHER VIRAL PNEUMONIA Status: Acute (2) Type 2 diabetes mellitus Status: Chronic (3) Dementia Code(s): F03.90 - UNSPECIFIED DEMENTIA WITHOUT BEHAVIORAL DISTURBANCE Status: Chronic Qualifiers: Dementia type: unspecified type Dementia behavioral disturbance: without b ehavioral disturbance Qualified Code(s): F03.90 - Unspecified dementia without behavioral disturbance (4) Hypertension Code(s): I10 - ESSENTIAL (PRIMARY) HYPERTENSION Status: Chronic - Plan * Continue insulin sliding scale. * continue dexamethasone. * Poor oral intake - PPN at 80 mls/hr and Megace. * Dementia-ontinue Namenda and Aricept * HTN-controlled and stable.
[2020-01-29] MEDS: D5W-AA 4.25% with LYTES 1,000 ML IV SCH (17:08)
[2020-01-29] MEDS: Aripiprazole 10 MG TAB PO SCH (19:22)
[2020-01-29] MEDS: Atorvastatin Calcium 40 MG TAB PO SCH (19:22)
[2020-01-29] MEDS: DULoxetine 60 MG CAP PO SCH (19:24)
[2020-01-30 05:37] LABS: Anion Gap 19 mmol/L (10-20); BUN (Urea Nitrogen) 44 mg/dL (8.4-25.7); Calc. Creatinine Clearance 44 mL/min (70-130); Calcium 8.8 mg/dL (7.8-10.44); Carbon Dioxide 26 mmol/L (23-31); Chloride 98 mmol/L (98-107); Estimated GFR-MDRD 57; Glucose 467 mg/dL (83-110); Potassium 4.9 mmol/L (3.5-5.1); Sodium 138 mmol/L (136-145)
[2020-01-30 05:43] LABS: Band 16 % (5-11); Hemoglobin 12.7 g/dL (14.0-18.0); Lymphocytes 6 % (21-51); MDiff Complete? YES; Mean Corpuscular HGB CONC 33.1 g/dL (32.0-36.0); Mean Corpuscular Volume 93.6 fL (78.0-98.0); Mean Platelet Volume 8.6 fL (7.4-10.4); Monocytes 5 % (0-10); Neutrophil 73 % (42-75); Platelet Count 292 thou/uL (130-400); Platelet Morphology Comment Appears Adequate; RBC Distribution Width 12.5 % (11.5-14.5); Red Blood Cell (RBC) Count 4.09 mill/uL (4.70-6.10)
[2020-01-30] MEDS: HumaLOG 300 UNITS/3 ML VIAL SC PRN ×3 (05:54→22:38)
[2020-01-30] MEDS: Aspirin Chewable 81 MG TAB PO SCH (09:24)
[2020-01-30] MEDS: Enoxaparin Sodium 40 MG/0.4 ML SYRINGE SC SCH ×2 (09:24→22:38)
[2020-01-30] MEDS: Ascorbic Acid 500 mg Chewable Tablet PO SCH (09:25)
[2020-01-30] MEDS: Magnesium Oxide 400 MG TAB PO SCH (09:25)
[2020-01-30] MEDS: Megestrol Acetate 40 MG TAB PO SCH (09:25)
[2020-01-30] MEDS: hydrALAZINE 25 MG TAB PO SCH ×3 (09:25→22:39)
[2020-01-30] MEDS: Dexamethasone 4 mg/ml Vial SLOW IVP SCH ×2 (09:25→22:40)
[2020-01-30] MEDS: Zinc Sulfate 220 MG CAP PO SCH (09:25)
[2020-01-30] MEDS: Lisinopril 20 MG TAB PO SCH (09:26)
[2020-01-30] MEDS: Metoprolol Tartrate 25 MG TAB PO SCH ×2 (09:26→22:40)
[2020-01-30] MEDS: Amlodipine 10 MG TAB PO SCH (09:26)
[2020-01-30] MEDS: metFORMIN 500 MG TAB PO SCH ×2 (09:27→22:39)
[2020-01-30] MEDS: HumuLIN 70/30 (300 UNITS/3 ML VIAL) SC SCH ×2 (09:27→18:03)
[2020-01-30] MEDS: Loratadine 10 MG TAB PO SCH (09:27)
[2020-01-30] MEDS: Donepezil HCl 10 MG TAB PO SCH (09:27)
[2020-01-30] MEDS: D5W-AA 4.25% with LYTES 1,000 ML IV SCH (13:07)
--- NOTE | 2020-01-30 16:46 | PDOC.HOSPP ---
- Subjective Encounter Date: 01/30/20 Encounter Time: 09:00 Subjective: Patient seen for follow-up regarding infection due to COVID-19 virus. He is not answering questions, could not complete review of systems. - Objective Vital Signs & Weight: Vital Signs (12 hours) Temp Pulse Resp BP BP Pulse Ox 01/30/20 15:30 97.8 F 78 18 165/82 H 94 L 01/30/20 11:50 98.4 F 71 18 179/97 H 95 01/30/20 09:45 98.3 F 61 20 177/92 H 92 L Weight Admit Weight 128 lb 9.6 oz Weight 128 lb 9.6 oz I&O: 01/29/20 01/30/20 01/31/20 06:59 06:59 06:59 Intake Total 720 1420 Output Total 150 Balance 570 1420 Result Diagrams: 01/30/20 04:53 01/30/20 04:53 Additional Labs: Accuchecks 01/30/20 01/29/20 01/29/20 11:49 22:01 17:15 POC Glucose 286 H 340 H 453 H Labs and MAR reviewed by me EKG Reviewed by me: Yes (Telemetry shows normal sinus rhythm) Hospitalist ROS - Review of Systems ROS unobtainable: due to mental status - Medication Medications: Active Medications Generic Name Dose Route Start Last Admin Trade Name Jermain PRN Reason Stop Dose Admin Amlodipine Besylate 10 mg 01/26/20 09:00 01/30/20 09:26 Amlodipine 10 Mg Tab PO 10 mg DAILY ALEJANDRO Administration Aripiprazole 5 mg 01/25/20 21:00 01/29/20 19:22 Aripiprazole 10 Mg Tab PO 5 mg HS ALEJANDRO Administration Ascorbic Acid 1,000 mg 01/26/20 09:00 01/30/20 09:25 Ascorbic Acid 500 Mg Chewable Tablet PO 1,000 mg DAILY ALEJANDRO Administration Aspirin 81 mg 01/26/20 09:00 01/30/20 09:24 Aspirin Chewable 81 Mg Tab PO 81 mg DAILY ALEJANDRO Administration Atorvastatin Calcium 40 mg 01/25/20 21:00 01/29/20 19:22 Atorvastatin Calcium 40 Mg Tab PO 40 mg HS ALEJANDRO Administration Dexamethasone 6 mg 01/26/20 09:00 01/30/20 09:25 Dexamethasone 4 Mg/Ml Vial SLOW IVP 6 mg BID ALEJANDRO Administration Dextrose/Water 25 gm 01/25/20 09:00 01/28/20 16:38 Dextrose 50% Abboject 50 Ml Syringe SLOW IVP 25 gm PRN PRN Administration Hypoglycemia Donepezil HCl 10 mg 01/26/20 09:00 01/30/20 09:27 Donepezil Hcl 10 Mg Tab PO 10 mg DAILY ALEJANDRO Administration Duloxetine HCl 60 mg 01/25/20 21:00 01/29/20 19:24 Duloxetine 60 Mg Cap PO Not Given HS ALEJANDRO Enoxaparin Sodium 40 mg 01/27/20 21:00 01/30/20 09:24 Enoxaparin Sodium 40 Mg/0.4 Ml Syringe SC 40 mg 09,2099 ALEJANDRO Administration Hydralazine HCl 50 mg 01/25/20 15:00 01/30/20 15:26 Hydralazine 25 Mg Tab PO 50 mg TID ALEJANDRO Administration Amino Acids/Electrolytes/Dextrose 1,000 mls @ 80 mls/hr 01/29/20 15:15 01/30/20 13:07 Clinimix E 4.25/5 IV 1,000 mls INF ALEJANDRO Administration Insulin Human Isoph/Insulin Regular 8 units 01/25/20 17:00 01/29/20 17:09 Humulin 70/30 (300 Units/3 Ml Vial) SC 8 unit 1700 ALEJANDRO Administration Insulin Human Isoph/Insulin Regular 20 units 01/27/20 07:30 01/30/20 09:27 Humulin 70/30 (300 Units/3 Ml Vial) SC 20 unit DAILY-AC ALEJANDRO Administration Insulin Human Lispro 0 units 01/25/20 09:00 01/29/20 22:12 Humalog 300 Units/3 Ml Vial SC 4 unit .BEDTIME SLIDING SC PRN Administration Bedtime Correctional Scale Insulin Human Lispro 0 units 01/29/20 06:30 01/30/20 13:25 Humalog 300 Units/3 Ml Vial SC 4 unit .MILD SLIDING SCALE PRN Administration MILD SLIDING SCALE Protocol Lisinopril 20 mg 01/26/20 09:00 01/30/20 09:26 Lisinopril 20 Mg Tab PO 20 mg DAILY ALEJANDRO Administration Loratadine 10 mg 01/26/20 09:00 01/30/20 09:27 Loratadine 10 Mg Tab PO 10 mg DAILY ALEJANDRO Administration Magnesium Oxide 800 mg 01/26/20 09:00 01/30/20 09:25 Magnesium Oxide 400 Mg Tab PO 800 mg DAILY ALEJANDRO Administration Megestrol Acetate 40 mg 01/30/20 09:00 01/30/20 09:25 Megestrol Acetate 40 Mg Tab PO 40 mg DAILY ALEJANDRO Administration Memantine 10 mg 01/25/20 21:00 01/30/20 09:27 Memantine Hcl 10 Mg Tab PO 10 mg BID ALEJANDRO Administration Metformin HCl 1,000 mg 01/25/20 21:00 01/30/20 09:27 Metformin 500 Mg Tab PO 1,000 mg BID ALEJANDRO Administration Metoprolol Tartrate 25 mg 01/25/20 21:00 01/30/20 09:26 Metoprolol Tartrate 25 Mg Tab PO 25 mg BID ALEJANDRO Administration Ondansetron HCl 4 mg 01/28/20 13:38 01/28/20 14:00 Ondansetron Pf 4 Mg/2 Ml Vial IVP 4 mg Q6H PRN Administration Nausea/Vomiting Sodium Chloride 10 ml 01/26/20 09:00 01/30/20 09:28 Flush - Normal Saline 10 Ml Syringe IVF 10 ml Q12HR ALEJANDRO Administration Zinc Sulfate 220 mg 01/28/20 09:00 01/30/20 09:25 Zinc Sulfate 220 Mg Cap PO 220 mg DAILY ALEJANDRO Administration - Exam General Appearance: awake alert Eye: anicteric sclera ENT: moist mucosa Neck: supple Heart: RRR Respiratory: CTAB Gastrointestinal: soft, non-tender Skin: no rashes Neurological - other findings: Unable to assess Psychiatric - other findings: Unable to assess Hosp A/P - Plan -Assessment (1) Pneumonia due to COVID-19 virus Code(s): U07.1 - COVID-19; J12.89 - OTHER VIRAL PNEUMONIA Status: Acute (2) Type 2 diabetes mellitus Status: Chronic (3) Dementia Code(s): F03.90 - UNSPECIFIED DEMENTIA WITHOUT BEHAVIORAL DISTURBANCE Status: Chronic Qualifiers: Dementia type: unspecified type Dementia behavioral disturbance: without behavioral disturbance Qualified Code(s): F03.90 - Unspecified dementia without behavioral disturbance (4) Hypertension Code(s): I10 - ESSENTIAL (PRIMARY) HYPERTENSION Status: Chronic - Plan * Blood sugars are high, administered one-time dose of 5 units Humulin 70/30 insulin. Patient has labile blood sugars. * continue dexamethasone. * Poor oral intake -continue PPN and Megace. * Dementia-patient is on Namenda and Aricept * HTN-controlled and stable. * Likely back to long-term care facility in 24 to 48 hours.
[2020-01-30] MEDS ORDERED: HumuLIN 70/30 (300 UNITS/3 ML VIAL) SC SCH (17:00)
[2020-01-30] MEDS: Atorvastatin Calcium 40 MG TAB PO SCH (22:39)
[2020-01-30] MEDS: Aripiprazole 10 MG TAB PO SCH (22:39)
[2020-01-30] MEDS: DULoxetine 60 MG CAP PO SCH (22:40)
[2020-01-31] MEDS: D5W-AA 4.25% with LYTES 1,000 ML IV SCH (04:19)
[2020-01-31] MEDS: HumaLOG 300 UNITS/3 ML VIAL SC PRN ×2 (05:31→10:34)
[2020-01-31] MEDS: Enoxaparin Sodium 40 MG/0.4 ML SYRINGE SC SCH (10:16)
[2020-01-31] MEDS: Amlodipine 10 MG TAB PO SCH (10:17)
[2020-01-31] MEDS: Zinc Sulfate 220 MG CAP PO SCH (10:17)
[2020-01-31] MEDS: Ascorbic Acid 500 mg Chewable Tablet PO SCH (10:17)
[2020-01-31] MEDS: Magnesium Oxide 400 MG TAB PO SCH (10:17)
[2020-01-31] MEDS: Lisinopril 20 MG TAB PO SCH (10:17)
[2020-01-31] MEDS: Aspirin Chewable 81 MG TAB PO SCH (10:18)
[2020-01-31] MEDS: metFORMIN 500 MG TAB PO SCH (10:18)
[2020-01-31] MEDS: hydrALAZINE 25 MG TAB PO SCH ×2 (10:18→14:14)
[2020-01-31] MEDS: Megestrol Acetate 40 MG TAB PO SCH (10:20)
[2020-01-31] MEDS: Metoprolol Tartrate 25 MG TAB PO SCH (10:20)
[2020-01-31] MEDS: Donepezil HCl 10 MG TAB PO SCH (10:20)
[2020-01-31 10:21] VITALS: TEMP 97
[2020-01-31] MEDS: Loratadine 10 MG TAB PO SCH (10:21)
[2020-01-31] MEDS: Dexamethasone 4 mg/ml Vial SLOW IVP SCH (10:21)
--- NOTE | 2020-01-31 10:50 | PDOC.DS.DS ---
Provider - Provider Date of Admission: 01/24/20 21:46 Date of Discharge: 01/31/20 Admitting Provider: Anish Rodriguez MD Primary Care Physician: OUT OF TOWN Course - Hospital Course Hospital Course: Discharge diagnosis: 1. Acute metabolic encephalopathy 2. COVID-19 infection 3. Hypoglycemia 4. Possible right hilar lesion, patient needs CT chest as outpatient 5. Poor oral intake Hospital course: Patient is a pleasant 74-year-old gentleman who was admitted to the hospital for altered mental status and hypoglycemia on January 24, 2020. He was recently diagnosed with COVID-19. He was started on dexamethasone. He also received vitamin C and zinc. His oral intake was poor and he was started on TPN. He was subsequently started on Megace, with improvement in his appetite. He is being discharged back to his long-term care facility for further management. Patient's chest x-ray showed possible right hilar lesion. He will need CT scan of chest as outpatient on an elective basis. Many thanks for allowing me to participate in your patient's care. Please feel free to contact me with any questions or concerns. Resuscitation Status: 01/24/20 22:29 Resuscitation Status Routine Resuscitation Status: FULL: Full Resuscitation - Labs Lab Results: 01/30/20 04:53 01/30/20 04:53 Abnormal Lab Results - Last 48 hrs 01/29/20 17:17: C-Reactive Protein 6.02 H 01/29/20 17:17: Ferritin 398.77 H 01/29/20 17:17: D-Dimer Less than 0.27 L 01/30/20 04:53: BUN 44 H 01/30/20 04:53: WBC 14.0 H, RBC 4.09 L, Hgb 12.7 L, Hct 38.3 L, Band Neuts % (Manual) 16 H, Lymphocytes % (Manual) 6 L Microbiology - Entire Visit 01/24/20 19:35 Venous blood - Left Arm Blood Culture - Final NO GROWTH IN 5 DAYS 01/24/20 19:35 Venous blood - Left Hand Blood Culture - Final NO GROWTH IN 5 DAYS 01/24/20 19:55 Urine Straight Catheter Urine Culture - Final NO GROWTH AT 36 HOURS - Physical Exam Vitals: Vital Signs (12 hours) Temp Pulse Resp BP BP Pulse Ox 01/31/20 10:18 58 L 01/31/20 10:17 58 L 01/31/20 09:30 97.0 F L 69 16 185/87 H 97 01/31/20 04:25 98.5 F 58 L 20 166/80 H 94 L Weight Admit Weight 128 lb 9.6 oz Weight 128 lb 9.6 oz Physical Exam: The patient was seen and examined on the day of discharge. Patient not speaking, could not complete review of systems. Vital signs are stable. S1 and S2 are heard. Lungs are clear to auscultation bilaterally. Problem - Time spent with Patient (mins): 33 Plan - Discharge Medications Prescriptions: Dexamethasone 6 mg PO DAILY #4 tablet Home Medications: Medication Instructions Recorded Confirmed Type hydrALAZINE [Apresoline] 50 mg PO TID 12/28/16 01/25/20 History metFORMIN HCl 1,000 mg PO BID 12/28/16 01/25/20 History Acetaminophen [Acetaminophen ER] 650 mg PO Q4HR PRN 02/12/17 01/25/20 History Amlodipine [Norvasc] 10 mg PO DAILY 02/12/17 01/25/20 History Aspirin Chewable [Aspirin Chewable 81 mg PO DAILY 02/12/17 01/25/20 History Tablet] Atorvastatin Calcium [Lipitor] 40 mg PO HS 02/12/17 01/25/20 History Docusate Sodium 100 mg PO DAILY 02/12/17 01/25/20 History Insulin Regular [HumuLIN R Vial] 0 unit SC ASDIR 02/12/17 01/25/20 History Metoprolol Tartrate 25 mg PO BID 02/12/17 01/25/20 History Pantoprazole [Protonix] 40 mg PO DAILY 02/12/17 01/25/20 History ARIPiprazole [Abilify] 5 mg PO HS 06/19/18 01/25/20 History DULoxetine [Cymbalta] 60 mg PO HS 06/19/18 01/25/20 History Donepezil HCl [Aricept] 10 mg PO DAILY 06/19/18 01/25/20 History Lisinopril [Zestril] 20 mg PO DAILY 06/19/18 01/25/20 History Loratadine [Claritin] 10 mg PO DAILY 06/19/18 01/25/20 History Magnesium Oxide 800 mg PO DAILY 06/19/18 01/25/20 History Memantine HCl [Namenda] 10 mg PO BID 06/19/18 01/25/20 History Ondansetron HCl [Zofran] 4 mg PO Q4HR PRN 06/19/18 01/25/20 History guaiFENesin/Dextromethorphan 1 cap PO Q4H PRN 06/19/18 01/25/20 History [Coricidin HBP Liqui-Gels] Ascorbic Acid [C-1000] 1,000 mg PO DAILY 01/25/20 01/25/20 History Cholecalciferol [Vitamin D3] 1,000 unit PO DAILY 01/25/20 01/25/20 History Insulin NPH Hum/Reg Insulin HM 8 units SC 1700 01/25/20 01/25/20 History [Novolin 70-30 100 Unit/ml Vial] Insulin NPH Hum/Reg Insulin HM 16 units SC DAILY-AC 01/25/20 01/25/20 History [Novolin 70-30 100 Unit/ml Vial] Dexamethasone 6 mg PO DAILY #4 tablet 01/31/20 Rx Megestrol Acetate [Megace] 40 mg PO DAILY tab 01/31/20 Rx Zinc 50 mg PO DAILY #0 01/31/20 01/25/20 Rx Zinc Sulfate 220 mg PO DAILY #4 cap 01/31/20 Rx Allergies: Penicillins Allergy (Verified 01/25/20 00:35) - Discharge Instructions Activity:: Activity as Tolerated Nourishment:: Diabetic Diet, Heart Healthy Diet - Follow up Plan Referrals: [facility],OUT OF [Primary Care Provider] - 3 Days Disposition: HOME Quality - Care Measures CORE MEASURES:: N/A
[2020-01-31 15:19] VITALS: BP 167/82
[2020-01-31] MEDS: HumuLIN 70/30 (300 UNITS/3 ML VIAL) SC SCH (20:28)
--- NOTE | 2020-02-03 12:17 | EKG ---
Test Reason : Blood Pressure : / mmHG Vent. Rate : 061 BPM Atrial Rate : 061 BPM P-R Int : 158 ms QRS Dur : 084 ms QT Int : 442 ms P-R-T Axes : 065 048 250 degrees QTc Int : 444 ms Normal sinus rhythm Septal infarct , age undetermined T wave abnormality, consider inferolateral ischemia Abnormal ECG T wave inversion inferior/lateral/anterior leads Confirmed by YOGI PEREZ ([id number]), marketing editor ROYER CASTILLO ([id number]) on 02/03/2020 12:17:26 PM Referred By: Confirmed By:YOGI PEREZ
== END 2020-01-31 18:50 | DRG 177 ==
LOC: ERS 18:47 → 2SW 21:46
PROVIDERS: ADMIT Internal Medicine; ATTEND Internal Medicine
PROC: 8E0ZXY6 Isolation (ICD-10-PCS; principal; 2020-01-24)
DX: U07.1 COVID-19 (principal); J12.89 Other viral pneumonia; G93.41 Metabolic encephalopathy; R64 Cachexia; Z68.1 Body mass index [BMI] 19.9 or less, adult; N17.9 Acute kidney failure, unspecified; G20 Parkinson's disease; F02.80 Dementia in other diseases classified elsewhere, unspecified severity, without behavioral disturbance, psychotic disturbance, mood disturbance, and anxiety; G30.9 Alzheimer's disease, unspecified; E78.5 Hyperlipidemia, unspecified; F20.9 Schizophrenia, unspecified; E11.22 Type 2 diabetes mellitus with diabetic chronic kidney disease; I12.9 Hypertensive chronic kidney disease with stage 1 through stage 4 chronic kidney disease, or unspecified chronic kidney disease; K59.09 Other constipation; N18.30 Chronic kidney disease, stage 3 unspecified; E11.649 Type 2 diabetes mellitus with hypoglycemia without coma; R77.8 Other specified abnormalities of plasma proteins; R91.8 Other nonspecific abnormal finding of lung field; Z23 Encounter for immunization; Z86.73 Personal history of transient ischemic attack (TIA), and cerebral infarction without residual deficits; Z79.899 Other long term (current) drug therapy; Z79.4 Long term (current) use of insulin
CPT/HCPCS: 36415; 36416; 51701; 70450; 71045; 80048; 80053; 81003; 81015; 82550; 82553; 82728; 83605; 83735; 83880; 84484; 85025; 85379; 86140; 87040; 87086; 87635; 90471; 90732; 93005; 96365; 96375; G0009; J0696; J1100; J1650; J1815; J2405; S0179; U0003

== ENCOUNTER 2020-02-11 19:47 | Inpatient (IN) | payer MEDICARE, MEDICAID ==
[~2020-02-11 19:47] MED LIST: Iopamidol-370 76% 500 ML 1 ML ONE
[2020-02-11 20:22] LABS: Bilirubin Negative (Negative); Blood, Urine Negative (Negative); Clarity Clear (Clear); Glucose, Urine (Dipstick) Greater than 1000 mg/dL (Negative); Ketone, Urine 10 mg/dL (Negative); Leukocyte Negative Leu/uL (Negative); Nitrite Negative (Negative); Protein, Urine (Dipstick) 10 mg/dL (Neg-Trace); Specific Gravity, Urine 1.024 (1.002-1.036)
[2020-02-11 20:29] LABS: #Basophils 0.1 thou/uL (0.0-0.2); #Lymphocytes 2.9 thou/uL (1.20-3.40); #Monocytes 0.8 thou/uL (0.11-0.59); #Neutrophils 8.8 thou/uL (1.40-6.50); %Basophils 0.7 % (0.0-1.0); %Eosinophils 0.3 % (0.0-10.0); %Lymphocytes 23.2 % (21.0-51.0); %Monocytes 6.3 % (0.0-10.0); %Neutrophils 69.6 % (42.0-75.0); Hemoglobin 12.7 g/dL (14.0-18.0); Mean Corpuscular HGB CONC 33.3 g/dL (32.0-36.0); Mean Corpuscular Hemoglobin 31.3 pg (27.0-31.0); Mean Platelet Volume 8.9 fL (7.4-10.4); Platelet Count 370 thou/uL (130-400); RBC Distribution Width 13.6 % (11.5-14.5); Red Blood Cell (RBC) Count 4.06 mill/uL (4.70-6.10); White Blood Cell (WBC) Count 12.6 thou/uL (4.8-10.8)
[2020-02-11 20:51] LABS: ALT (SGPT) 132 U/L (8-55); AST (SGOT) 18 U/L (5-34); Albumin 3.2 g/dL (3.4-4.8); Alkaline Phosphatase 233 U/L (40-110); Anion Gap 20 mmol/L (10-20); BUN (Urea Nitrogen) 60 mg/dL (8.4-25.7); Bilirubin, Total 0.7 mg/dL (0.2-1.2); CK (CPK) 42 U/L (30-200); Calc. Creatinine Clearance 0 mL/min (70-130); Calcium 8.8 mg/dL (7.8-10.44); Carbon Dioxide 23 mmol/L (23-31); Chloride 110 mmol/L (98-107); Estimated GFR-MDRD 38; Globulin 2.7 g/dL (2.4-3.5); Glucose 139 mg/dL (83-110); Lipase 44 U/L (8-78); Potassium 4.3 mmol/L (3.5-5.1); Protein, Total 5.9 g/dL (5.8-8.1); Sodium 149 mmol/L (136-145)
[2020-02-11 21:12] LABS: CKMB 2.5 ng/mL (0-6.6)
--- NOTE | 2020-02-11 22:23 | CT ---
CT PULMONARY ANGIOGRAM WITH IV CONTRAST AND 3D MIP RECONSTRUCTIONS: Date: 02/11/2020 PROVIDED CLINICAL HISTORY: Elevated D-Dimer. FINDINGS: There is no evidence for central or segmental pulmonary embolus. There is a small pericardial effusio n. Coronary calcium is demonstrated. Parenchymal scarring changes are seen, as well as subsegmental a telectatic change at both lung bases. There is no significant pleural fluid evident. There is no evid ence for pneumothorax. There are occasional foci of ground-glass opacity within the right lower lobe and right middle lobe. The airway appears patent and of normal caliber. There is no evidence for thoracic lymph node enlarge ment. The visualized portions of the upper abdomen appear unremarkable. The osseous structures demons trate no evidence for any lytic or blastic lesions. IMPRESSION: 1. No evidence for central or segmental pulmonary embolus. 2. Patchy ground-glass opacity involving right lower lobe and right middle lobe may reflect infectio us pneumonitis. 3. Small pericardial effusion. 4. Coronary calcium. POS: JEFF
--- NOTE | 2020-02-11 22:44 | RAD ---
PORTABLE CHEST: Date: 02/11/2020 PROVIDED CLINICAL HISTORY: Altered mental status. FINDINGS: Comparison with 01/24/2020. Cardiac and mediastinal silhouette is within normal limits. Lungs appear radiographically clear. Ther e is no pleural fluid or pneumothorax apparent. IMPRESSION: No radiographic evidence for acute cardiopulmonary process. POS: JEFF
[2020-02-11] MEDS ORDERED: Vancomycin 1 GM/200 ML BAG ONE (23:02)
[2020-02-11 23:35] LABS: Lactic Acid 1.8 mmol/L (0.5-2.2)
[2020-02-11] MEDS ORDERED: Acetaminophen 650 MG Suppository PR PRN (23:49)
[2020-02-11] MEDS ORDERED: Ondansetron ODT 4 MG TAB PO PRN (23:49)
[2020-02-11] MEDS ORDERED: Guaifenesin DM 100-10/5 ML UDCUP PO PRN (23:49)
[2020-02-11] MEDS ORDERED: Acetaminophen 325 MG TAB PO PRN (23:49)
[2020-02-11] MEDS ORDERED: Ondansetron PF 4 MG/2 ML Vial IVP PRN (23:49)
[2020-02-11] MEDS ORDERED: HYDROcodone/Acetaminophen 5/325 mg Tablet PO PRN (23:49)
--- NOTE | 2020-02-11 23:58 | PDOC.HHP ---
Hospitalist HPI - History of Present Illness altered mental state History of Present Illness: most of the history taken from [facility], ed and [facility] records, patient not oriented even to person and no family members are preset at the moment of my evaluation. Case of an 74y/o male with gerd, dementia,schizophrenia, parkinson disease, alzheimer, DM, hld, heart failure, hx of cva and htn sent over from [facility] for evaluation due to altered mental state, he is at baseline alert and oriented x1. had a recent hospitalization for Covid 19, was discharged on 01/31/20. apart from altered mental stated patient had no clear reason as to why he was sent. At ed patient was evaluated and found with sepsis secondary to pneumonia and hospitalist was called for further evaluation and management. Hospitalist ROS - Review of Systems ROS unobtainable: due to mental status All other systems reviewed; all pertinent +/- noted in HPI/Subj Hospitalist History - Past Surgical History Other Surgical History: unable to asses due to mental status - Family History Other Family History: unable to asses due to mental status - Social History Alcohol: reports: None Drugs: reports: none - Exam General Appearance: ill appearing Eye: PERRL, anicteric sclera ENT: normocephalic atraumatic, no oropharyngeal lesions Neck: supple, symmetric, no JVD, no thyromegaly Heart: RRR, no murmur, no gallops, no rubs Respiratory: CTAB, no wheezes, no rales, no ronchi Gastrointestinal: soft, non-tender, normal bowel sounds Extremities: no clubbing, no edema Skin: normal turgor, no lesions, no rashes Neurological: cranial nerve grossly intact, no focal deficits Musculoskeletal: normal tone, no muscle wasting Psychiatric: not oriented Hospitalist Results - Labs Result Diagrams: 02/11/20 20:18 02/11/20 20:18 Lab results: WBC 12.6 thou/uL (4.8-10.8) H 02/11/20 20:18 Hgb 12.7 g/dL (14.0-18.0) L 02/11/20 20:18 Hct 38.1 % (42.0-52.0) L 02/11/20 20:18 MCV 94.0 fL (78.0-98.0) 02/11/20 20:18 Plt Count 370 thou/uL (130-400) 02/11/20 20:18 Neutrophils % 69.6 % (42.0-75.0) 02/11/20 20:18 Sodium 149 mmol/L (136-145) H 02/11/20 20:18 Potassium 4.3 mmol/L (3.5-5.1) 02/11/20 20:18 Chloride 110 mmol/L (98-107) H 02/11/20 20:18 Carbon Dioxide 23 mmol/L (23-31) 02/11/20 20:18 BUN 60 mg/dL (8.4-25.7) H 02/11/20 20:18 Creatinine 1.77 mg/dL (0.7-1.3) H 02/11/20 20:18 Glucose 139 mg/dL (83-110) H 02/11/20 20:18 Lactic Acid 1.8 mmol/L (0.5-2.2) 02/11/20 23:10 Calcium 8.8 mg/dL (7.8-10.44) 02/11/20 20:18 Total Bilirubin 0.7 mg/dL (0.2-1.2) 02/11/20 20:18 AST 18 U/L (5-34) 02/11/20 20:18 ALT 132 U/L (8-55) H 02/11/20 20:18 Alkaline Phosphatase 233 U/L (40-110) H 02/11/20 20:18 Creatine Kinase 42 U/L (30-200) 02/11/20 20:18 CK-MB (CK-2) 2.5 ng/mL (0-6.6) 02/11/20 20:18 Troponin I 0.066 ng/mL (< 0.028) H 02/11/20 20:18 B-Natriuretic Peptide 285.5 pg/mL (0-100) H 02/11/20 20:18 Serum Total Protein 5.9 g/dL (5.8-8.1) 02/11/20 20:18 Albumin 3.2 g/dL (3.4-4.8) L 02/11/20 20:18 Lipase 44 U/L (8-78) 02/11/20 20:18 Urine Ketones 10 mg/dL (Negative) A 02/11/20 20:02 Urine Blood Negative (Negative) 02/11/20 20:02 Urine Nitrite Negative (Negative) 02/11/20 20:02 Ur Leukocyte Esterase Negative Thea/uL (Negative) 02/11/20 20:02 Hospitalist H&P A/P - Problem (1) Sepsis Code(s): A41.9 - SEPSIS, UNSPECIFIED ORGANISM Status: Acute (2) Pneumonia Code(s): J18.9 - PNEUMONIA, UNSPECIFIED ORGANISM Status: Acute (3) Hypernatremia Code(s): E87.0 - HYPEROSMOLALITY AND HYPERNATREMIA Status: Acute (4) Acute renal failure superimposed on stage 3 chronic kidney disease Code(s): N17.9 - ACUTE KIDNEY FAILURE, UNSPECIFIED; N18.30 - CHRONIC KIDNEY DISEASE, STAGE 3 UNSPECIFIED Status: Acute (5) Elevated troponin Code(s): R77.8 - OTHER SPECIFIED ABNORMALITIES OF PLASMA PROTEINS Status: Acute (6) Dementia Code(s): F03.90 - UNSPECIFIED DEMENTIA WITHOUT BEHAVIORAL DISTURBANCE Status: Chronic Qualifiers: Dementia type: unspecified type Dementia behavioral disturbance: without behavioral disturbance Qualified Code(s): F03.90 - Unspecified dementia without behavioral disturbance (7) Hypertension Code(s): I10 - ESSENTIAL (PRIMARY) HYPERTENSION Status: Chronic (8) Diabetes Code(s): E11.9 - TYPE 2 DIABETES MELLITUS WITHOUT COMPLICATIONS Status: Acute - Plan Plan: Case of an 74y/o male with the stated pmhx who presents to hospital with sepsis secondary to pna, anselmo and hypernatremia sepsis / R middle and lower lobe pneumonia - wbc 12 + elevated LA at [address] showing R midle and lower lobe pneumonia - ivfs started + cultures taken + started on broad spectrum abx - will continue w levaquin renally adjusted - f/u LA - f/u cultures - prn o2 supplementation - hx of recent covid around 1month ago, will re-test and will placed isolation precaution until test comes back Acute on chronic renal failure - hx of recent poor PO intake - will hydrate - f/u creatinine and u/o - renal u/s - avoid neprhotoxic medications hypernatremia - hx of poor oral intake, likely hypovolemic - will rehydrate with ns - f/u bmp htn - will hold medication in setting of sepsis DM - long acting insulin - acc+ss elevated troponins - likely troponin leak secondary to continue home meds for reset of chronic conditions
[2020-02-12] MEDS ORDERED: Dextrose 50% Abboject 50 ML SYRINGE SLOW IVP PRN (00:03)
[2020-02-12] MEDS ORDERED: Dextrose 5% in Water 1,000 ML IV PRN (00:03)
[2020-02-12] MEDS: Sodium Chloride 0.9% 1,000 ML IV SCH ×2 (00:17→12:08)
[2020-02-12 01:34] LABS: Troponin I 0.065 ng/mL (< 0.028)
[2020-02-12 01:35] VITALS: BMI 18.3
[2020-02-12 01:52] LABS: SARS-CoV-2 MS2 Positive; SARS-CoV-2 N Gene Positive; SARS-CoV-2 S Gene Positive; SARS-CoV-2 by NAA DETECTED (NotDetected); SARS-CoV-2 orf1ab Positive
[2020-02-12 05:10] LABS: Troponin I 0.052 ng/mL (< 0.028)
[2020-02-12] MEDS ORDERED: HumaLOG 300 UNITS/3 ML VIAL SC PRN ×2 (06:15)
[2020-02-12] MEDS ORDERED: Insulin Glargine 10 UNITS in Pre-Filled Syringe 1 EACH SC SCH ×2 (06:30→21:00)
[2020-02-12 06:34] LABS: ALT (SGPT) 108 U/L (8-55); AST (SGOT) 17 U/L (5-34); Albumin 2.8 g/dL (3.4-4.8); Alkaline Phosphatase 199 U/L (40-110); Anion Gap 17 mmol/L (10-20); BUN (Urea Nitrogen) 52 mg/dL (8.4-25.7); Bilirubin, Total 0.8 mg/dL (0.2-1.2); Calc. Creatinine Clearance 35 mL/min (70-130); Calcium 7.8 mg/dL (7.8-10.44); Carbon Dioxide 22 mmol/L (23-31); Chloride 111 mmol/L (98-107); Estimated GFR-MDRD 46; Globulin 2.4 g/dL (2.4-3.5); Glucose 462 mg/dL (83-110); Potassium 4.2 mmol/L (3.5-5.1); Protein, Total 5.2 g/dL (5.8-8.1); Sodium 146 mmol/L (136-145)
[2020-02-12 07:28] LABS: Mean Corpuscular HGB CONC 32.8 g/dL (32.0-36.0); Mean Corpuscular Hemoglobin 31.3 pg (27.0-31.0); Mean Corpuscular Volume 95.4 fL (78.0-98.0); Mean Platelet Volume 9.1 fL (7.4-10.4); Platelet Count 301 thou/uL (130-400); RBC Distribution Width 13.5 % (11.5-14.5); Red Blood Cell (RBC) Count 3.52 mill/uL (4.70-6.10); White Blood Cell (WBC) Count 10.1 thou/uL (4.8-10.8)
[2020-02-12 08:12] LABS: Band 4 % (5-11); Lymphocytes 15 % (21-51); MDiff Complete? YES; Monocytes 2 % (0-10); Neutrophil 76 % (42-75); Platelet Morphology Comment Appears Adequate; RBC Morphology Normal; Reactive Lymphocytes 3 % (0-10)
[2020-02-12] MEDS ORDERED: FLU VACC QS2020-21(65YR UP)/PF 240 MCG/0.7 ML SYRINGE IM ONE (09:00)
--- NOTE | 2020-02-12 09:40 | PDOC.HOSPP ---
- Subjective Encounter Date: 02/12/20 Encounter Time: 09:30 Subjective: Patient seen for follow-up this morning for COVID-19, sepsis, pneumonia, and hyponatremia. Examination is somewhat limited as patient does have underlying dementia. However, when asked patient states he feels fine, he does think he is at home though. Is currently n.p.o. until speech therapy can evaluate him. - Objective Vital Signs & Weight: Vital Signs (12 hours) Temp Pulse Resp BP Pulse Ox 02/12/20 04:41 97.2 F L 79 18 139/79 99 02/11/20 23:45 97.4 F L 73 18 133/76 95 Weight Weight 124 lb 6.4 oz Result Diagrams: 02/12/20 06:17 02/12/20 03:30 Additional Labs: Accuchecks 02/12/20 02/11/20 05:48 19:58 POC Glucose 447 H 119 H Hospitalist ROS - Review of Systems ROS unobtainable: due to mental status - Medication Medications: Active Medications Generic Name Dose Route Start Last Admin Trade Name Freq PRN Reason Stop Dose Admin Sodium Chloride 1,000 mls @ 100 mls/hr 02/11/20 23:45 02/12/20 00:17 Normal Saline 0.9% IV 1,000 mls .Q10H ALEJANDRO Administration Insulin Human Lispro 0 units 02/12/20 06:15 02/12/20 06:27 Humalog 300 Units/3 Ml Vial SC 10 unit .MODERATE SLIDING SC PRN Administration MODERATE SLIDING SCALE Protocol - Exam General Appearance: NAD, awake alert, ill appearing General - other findings: Thin Eye: PERRL, anicteric sclera ENT: normocephalic atraumatic, dry oral mucosa Heart: RRR, no murmur, no gallops, no rubs Respiratory: CTAB, no wheezes, no rales, no ronchi Gastrointestinal: soft, non-tender, non-distended, normal bowel sounds Extremities: no clubbing, no edema Neurological: no focal deficits Psychiatric: oriented to person Hosp A/P (1) Pneumonia due to COVID-19 virus Code(s): U07.1 - COVID-19; J12.89 - OTHER VIRAL PNEUMONIA Status: Acute (2) Sepsis Code(s): A41.9 - SEPSIS, UNSPECIFIED ORGANISM Status: Acute (3) Hypernatremia Code(s): E87.0 - HYPEROSMOLALITY AND HYPERNATREMIA Status: Acute (4) Acute renal failure superimposed on stage 3 chronic kidney disease Code(s): N17.9 - ACUTE KIDNEY FAILURE, UNSPECIFIED; N18.30 - CHRONIC KIDNEY DISEASE, STAGE 3 UNSPECIFIED Status: Acute (5) Elevated troponin Code(s): R77.8 - OTHER SPECIFIED ABNORMALITIES OF PLASMA PROTEINS Status: Acute (6) Dementia Code(s): F03.90 - UNSPECIFIED DEMENTIA WITHOUT BEHAVIORAL DISTURBANCE Status: Chronic Qualifiers: Dementia type: unspecified type Dementia behavioral disturbance: without behavioral disturbance Qualified Code(s): F03.90 - Unspecified dementia without behavioral disturbance (7) Hypertension Code(s): I10 - ESSENTIAL (PRIMARY) HYPERTENSION Status: Chronic (8) Diabetes Code(s): E11.9 - TYPE 2 DIABETES MELLITUS WITHOUT COMPLICATIONS Status: Chronic - Plan #Sepsis with pneumonia and history of COVID-19 COVID-19 positive, continue precautions - Continue IV fluids - Continue IV antibiotics, renally adjusted - Cultures currently pending - prn o2 supplementation #Acute on chronic renal failure - Recent poor PO intake - Continue hydration Continue to monitor urine output - Awaiting renal u/s - Avoid neprhotoxic medications #Hypernatremia - hx of poor oral intake, likely hypovolemic - Continue rehydrating - Continue to monitor a.m. labs #Hypertension - We will slowly restart home medications once p.o. intake improves #Diabetes mellitus - Monitor Accu-Cheks every 6 hours until taking p.o. then changed to before meals and at bedtime - Sliding scale insulin #Elevated troponins - Likely troponin leak secondary to renal function
[2020-02-12] MEDS: Magnesium Oxide 400 MG TAB PO SCH (09:44)
[2020-02-12] MEDS: Aspirin Chewable 81 MG TAB PO SCH (09:44)
[2020-02-12] MEDS: Amlodipine 10 MG TAB PO SCH (09:44)
[2020-02-12] MEDS: Famotidine 20 MG TAB PO SCH (09:44)
[2020-02-12] MEDS: Donepezil HCl 10 MG TAB PO SCH (09:45)
[2020-02-12] MEDS: Metoprolol Tartrate 50 MG TAB PO SCH ×2 (09:46→20:57)
[2020-02-12] MEDS: Pantoprazole 40 MG GRANULES PACKET PO SCH (09:47)
[2020-02-12] MEDS: hydrALAZINE 25 MG TAB PO SCH ×3 (10:56→20:57)
[2020-02-12] MEDS ORDERED: hydrALAZINE 20 MG/ML VIAL SLOW IVP PRN (11:37)
[2020-02-12] MEDS: Enoxaparin Sodium 40 MG/0.4 ML SYRINGE SC SCH (12:09)
--- NOTE | 2020-02-12 12:15 | ULT ---
BILATERAL RENAL ULTRASOUND: Date: 02/12/2020 PROVIDED CLINICAL HISTORY: Renal failure. FINDINGS: Right kidney measures about 10.7 x 4.1 x 4.8 cm and demonstrates no evidence for hydronephrosis or ma ss. Left kidney measures about 10.5 x 4.8 x 5.3 cm and demonstrates no evidence for hydronephrosis or mas s. Debris is seen within the urinary bladder which appears otherwise unremarkable. IMPRESSION: 1. No evidence for hydronephrosis. 2. Debris within the urinary bladder. Correlate with UA. POS: JEFF
--- NOTE | 2020-02-12 14:17 | PDOC.EVN ---
Event Note - Event Note Event Note: Called and spoke with Sadie Fraire who is the patient's friend for life guardian. We discussed his speech therapy results and possible prognosis with swallowing difficulties. She requested palliative care to contact her again as they were on his case last admission discussing advanced directives. She does not opt for a PEG tube at this time but will discuss it with her commercial project manager. Her contact number is [phone].
[2020-02-12] MEDS ORDERED: Sodium Chloride 0.9% 1,000 ML IV SCH (16:30)
[2020-02-12] MEDS: Dextrose 5 % And 0.9 % NaCl 1,000 ML IV SCH (18:06)
[2020-02-12] MEDS: Insulin Glargine 20 UNITS in Pre-Filled Syringe 1 EACH SC SCH (20:53)
[2020-02-12] MEDS: Aripiprazole 10 MG TAB PO SCH (20:56)
[2020-02-12] MEDS: Atorvastatin Calcium 40 MG TAB PO SCH (20:56)
[2020-02-12] MEDS: DULoxetine 60 MG CAP PO SCH (20:57)
[2020-02-13] MEDS: Dextrose 5 % And 0.9 % NaCl 1,000 ML IV SCH ×2 (05:57→19:30)
[2020-02-13] MEDS: Amlodipine 10 MG TAB PO SCH (09:25)
[2020-02-13] MEDS: hydrALAZINE 25 MG TAB PO SCH ×3 (09:26→20:02)
[2020-02-13] MEDS: Aspirin Chewable 81 MG TAB PO SCH (09:26)
[2020-02-13] MEDS: Famotidine 20 MG TAB PO SCH (09:26)
[2020-02-13] MEDS: Donepezil HCl 10 MG TAB PO SCH (09:26)
[2020-02-13] MEDS: Enoxaparin Sodium 40 MG/0.4 ML SYRINGE SC SCH (09:26)
[2020-02-13] MEDS: Magnesium Oxide 400 MG TAB PO SCH (09:28)
[2020-02-13] MEDS: Pantoprazole 40 MG GRANULES PACKET PO SCH (09:29)
[2020-02-13] MEDS: Metoprolol Tartrate 50 MG TAB PO SCH ×2 (09:29→20:03)
--- NOTE | 2020-02-13 17:58 | PDOC.HOSPP ---
- Subjective Encounter Date: 02/13/20 Encounter Time: 17:35 Subjective: f/u for COVID PNA/sepsis on current Levaquin and no O2 supplementation. No new complaints noted. - Objective Vital Signs & Weight: Vital Signs (12 hours) Temp Pulse Resp BP Pulse Ox 02/13/20 16:42 62 02/13/20 15:30 96.7 F L 62 18 134/71 100 02/13/20 11:55 95.3 F L 55 L 18 134/69 91 L 02/13/20 08:00 99 02/13/20 07:16 96.7 F L 56 L 16 145/66 H 99 Weight Admit Weight 124 lb 6.4 oz Weight 124 lb 6.4 oz I&O: 02/12/20 02/13/20 02/14/20 06:59 06:59 06:59 Intake Total 900 Balance 900 Result Diagrams: 02/12/20 06:17 02/12/20 03:30 Additional Labs: Accuchecks 02/13/20 02/13/20 02/13/20 15:28 12:02 06:00 POC Glucose 143 H 122 H 124 H 02/12/20 02/12/20 20:52 18:11 POC Glucose 123 H 114 H Microbiology 02/11/20 20:33 Venous blood - Left Hand Blood Culture - Preliminary NO GROWTH AT 48 HOURS 02/11/20 20:18 Venous blood - Left Arm Blood Culture - Preliminary NO GROWTH AT 48 HOURS Laboratory Tests 02/11/20 02/11/20 02/11/20 20:18 20:18 20:18 WBC 12.6 H Hgb 12.7 L D-Dimer Sodium 149 H BUN 60 H Creatinine 1.77 H Lactic Acid Troponin I 0.066 H SARS-CoV-2 (PCR) 02/11/20 02/11/20 02/11/20 20:18 20:18 22:43 WBC Hgb D-Dimer 0.47 H Sodium BUN Creatinine Lactic Acid 5.2 H* Troponin I SARS-CoV-2 (PCR) DETECTED A* 02/11/20 02/12/20 02/12/20 23:10 00:46 04:30 WBC Hgb D-Dimer Sodium BUN Creatinine Lactic Acid 1.8 Troponin I 0.065 H 0.052 H SARS-CoV-2 (PCR) Radiology Reviewed by me: Yes (CTA chest - RM/LL infiltrate, no PE) Hospitalist ROS - Medication Medications: Active Medications Generic Name Dose Route Start Last Admin Trade Name Freq PRN Reason Stop Dose Admin Amlodipine Besylate 10 mg 02/12/20 09:00 02/13/20 09:25 Amlodipine 10 Mg Tab PO Not Given DAILY [facility] Aripiprazole 5 mg 02/12/20 21:00 02/12/20 20:56 Aripiprazole 10 Mg Tab PO Not Given HS [facility] Aspirin 81 mg 02/12/20 09:00 02/13/20 09:26 Aspirin Chewable 81 Mg Tab PO Not Given DAILY [facility] Atorvastatin Calcium 40 mg 02/12/20 21:00 02/12/20 20:56 Atorvastatin Calcium 40 Mg Tab PO Not Given HS [facility] Donepezil HCl 10 mg 02/12/20 09:00 02/13/20 09:26 Donepezil Hcl 10 Mg Tab PO Not Given DAILY [facility] Duloxetine HCl 60 mg 02/12/20 21:00 02/12/20 20:57 Duloxetine 60 Mg Cap PO Not Given HS [facility] Enoxaparin Sodium 40 mg 02/12/20 09:00 02/13/20 09:26 Enoxaparin Sodium 40 Mg/0.4 Ml Syringe SC Not Given 0900 [facility] Famotidine 20 mg 02/12/20 09:00 02/13/20 09:26 Famotidine 20 Mg Tab PO Not Given DAILY [facility] Hydralazine HCl 50 mg 02/12/20 09:00 02/13/20 16:42 Hydralazine 25 Mg Tab PO Not Given TID [facility] Insulin Glargine 20 units/ 0.2 mls @ 0 mls/hr 02/12/20 21:00 02/12/20 20:53 Miscellaneous Medication SC 0.2 mls HS [facility] Administration Dextrose/Sodium Chloride 1,000 mls @ 75 mls/hr 02/12/20 17:45 02/13/20 05:57 D5 0.9% Ns IV 1,000 mls .[id number] [facility] Administration Insulin Human Lispro 0 units 02/12/20 06:15 02/12/20 06:27 Humalog 300 Units/3 Ml Vial SC 10 unit .MODERATE SLIDING SC PRN Administration MODERATE SLIDING SCALE Protocol Magnesium Oxide 800 mg 02/12/20 09:00 02/13/20 09:28 Magnesium Oxide 400 Mg Tab PO Not Given DAILY [facility] Memantine 10 mg 02/12/20 09:00 02/13/20 09:28 Memantine Hcl 10 Mg Tab PO Not Given BID [facility] Metoprolol Tartrate 25 mg 02/12/20 09:00 02/13/20 09:29 Metoprolol Tartrate 50 Mg Tab PO Not Given BID [facility] Pantoprazole Sodium 40 mg 02/12/20 09:00 02/13/20 09:29 Pantoprazole 40 Mg Granules Packet PO Not Given DAILY [facility] - Exam General Appearance: NAD, awake alert Eye: PERRL, anicteric sclera ENT: normocephalic atraumatic, no oropharyngeal lesions Neck: supple, symmetric, no JVD, no thyromegaly, no lymphadenopathy Heart: RRR, no gallops, no rubs, normal peripheral pulses Heart - other findings: S1, S2 Respiratory: no rales, no tachypnea Respiratory - other findings: R basilar coarse sounds, diminished in R base Gastrointestinal: soft, non-tender, non-distended, normal bowel sounds, no palpable masses Extremities: no cyanosis, no clubbing, no edema Skin: normal turgor, no lesions Neurological: cranial nerve grossly intact, no new deficit Musculoskeletal: normal tone, generalized weakness Psychiatric: oriented to person Hosp A/P (1) Sepsis due to COVID-19 Code(s): U07.1 - COVID-19; A41.89 - OTHER SPECIFIED SEPSIS Status: Acute Plan: Continue supportive mgmt, continue Levaquin (2) Pneumonia due to COVID-19 virus Code(s): U07.1 - COVID-19; J12.89 - OTHER VIRAL PNEUMONIA Status: Acute Plan: Continue Levaquin, add Vit C/Zinc (3) Acute renal failure superimposed on stage 3 chronic kidney disease Code(s): N17.9 - ACUTE KIDNEY FAILURE, UNSPECIFIED; N18.30 - CHRONIC KIDNEY DISEASE, STAGE 3 UNSPECIFIED Status: Acute Plan: Improved, continue IVF's, avoid nephrotoxic meds and limit contrast exposure (4) Metabolic encephalopathy Code(s): G93.41 - METABOLIC ENCEPHALOPATHY Status: Acute Plan: Multifactorial including advanced dementia, supportive (5) Dementia Code(s): F03.90 - UNSPECIFIED DEMENTIA WITHOUT BEHAVIORAL DISTURBANCE Status: Chronic Qualifiers: Dementia type: unspecified type Dementia behavioral disturbance: without behavioral disturbance Qualified Code(s): F03.90 - Unspecified dementia without behavioral disturbance Plan: Advanced, continue Aricept/Namenda - Plan continue antibiotics, social work therapist, speech therapy, DVT proph w/SCDs Consults: Palliative Care Stable currently Continue Levaquin Add Vit C/Zinc Continue Lovenox Continue IVF's Isolation protocol AM lab: CMP, CBC
[2020-02-13] MEDS: Atorvastatin Calcium 40 MG TAB PO SCH (20:01)
[2020-02-13] MEDS: DULoxetine 60 MG CAP PO SCH (20:01)
[2020-02-13] MEDS: Aripiprazole 10 MG TAB PO SCH (20:01)
[2020-02-13] MEDS: Insulin Glargine 20 UNITS in Pre-Filled Syringe 1 EACH SC SCH (20:43)
[2020-02-14 08:02] LABS: #Eosinphils 0.1 thou/uL (0.0-0.7); #Lymphocytes 2.3 thou/uL (1.20-3.40); #Monocytes 0.5 thou/uL (0.11-0.59); #Neutrophils 3.6 thou/uL (1.40-6.50); %Basophils 0.7 % (0.0-1.0); %Eosinophils 0.8 % (0.0-10.0); %Lymphocytes 35.6 % (21.0-51.0); %Monocytes 7.7 % (0.0-10.0); %Neutrophils 55.2 % (42.0-75.0); Hemoglobin 10.9 g/dL (14.0-18.0); Mean Corpuscular HGB CONC 32.6 g/dL (32.0-36.0); Mean Corpuscular Hemoglobin 31.2 pg (27.0-31.0); Mean Corpuscular Volume 95.7 fL (78.0-98.0); Mean Platelet Volume 9.2 fL (7.4-10.4); Platelet Count 261 thou/uL (130-400); RBC Distribution Width 13.2 % (11.5-14.5); White Blood Cell (WBC) Count 6.4 thou/uL (4.8-10.8)
[2020-02-14 08:31] LABS: ALT (SGPT) 90 U/L (8-55); AST (SGOT) 45 U/L (5-34); Albumin 2.8 g/dL (3.4-4.8); Alkaline Phosphatase 178 U/L (40-110); Anion Gap 15 mmol/L (10-20); BUN (Urea Nitrogen) 17 mg/dL (8.4-25.7); Bilirubin, Total 0.9 mg/dL (0.2-1.2); Calc. Creatinine Clearance 64 mL/min (70-130); Calcium 7.8 mg/dL (7.8-10.44); Carbon Dioxide 23 mmol/L (23-31); Chloride 115 mmol/L (98-107); Estimated GFR-MDRD Greater than 90; Globulin 2.4 g/dL (2.4-3.5); Glucose 146 mg/dL (83-110); Potassium 3.2 mmol/L (3.5-5.1); Protein, Total 5.2 g/dL (5.8-8.1); Sodium 150 mmol/L (136-145)
[2020-02-14] MEDS: Aspirin Chewable 81 MG TAB PO SCH (09:08)
[2020-02-14] MEDS: hydrALAZINE 25 MG TAB PO SCH ×3 (09:08→21:05)
[2020-02-14] MEDS: Ascorbic Acid 500 mg Chewable Tablet PO SCH (09:08)
[2020-02-14] MEDS: Famotidine 20 MG TAB PO SCH (09:08)
[2020-02-14] MEDS: Amlodipine 10 MG TAB PO SCH (09:08)
[2020-02-14] MEDS: Donepezil HCl 10 MG TAB PO SCH (09:08)
[2020-02-14] MEDS: Metoprolol Tartrate 50 MG TAB PO SCH ×2 (09:09→21:05)
[2020-02-14] MEDS: Pantoprazole 40 MG GRANULES PACKET PO SCH (09:09)
[2020-02-14] MEDS: Magnesium Oxide 400 MG TAB PO SCH (09:09)
[2020-02-14] MEDS: Zinc Sulfate 220 MG CAP PO SCH (09:09)
[2020-02-14] MEDS: Enoxaparin Sodium 40 MG/0.4 ML SYRINGE SC SCH (09:32)
[2020-02-14] MEDS: Dextrose 5 % And 0.9 % NaCl 1,000 ML IV SCH (09:32)
--- NOTE | 2020-02-14 12:53 | PDOC.HOSPP ---
- Subjective Encounter Date: 02/14/20 Encounter Time: 12:50 Subjective: f/u for Sepsis/COVID PNA receiving Levaquin/Lovenox/Vit C/Zinc. Remains on room air. - Objective Vital Signs & Weight: Vital Signs (12 hours) Temp Pulse Resp BP Pulse Ox 02/14/20 08:27 97.3 F L 60 20 95/61 98 02/14/20 08:00 98 02/14/20 05:30 97.9 F 57 L 19 131/65 96 Weight Admit Weight 124 lb 6.4 oz Weight 124 lb 6.4 oz I&O: 02/13/20 02/14/20 02/15/20 06:59 06:59 06:59 Intake Total 900 900 Balance 900 900 Result Diagrams: 02/14/20 07:37 02/14/20 07:37 Additional Labs: Accuchecks 02/14/20 02/14/20 02/13/20 12:02 05:35 20:46 POC Glucose 107 H 134 H 133 H 02/13/20 15:28 POC Glucose 143 H Microbiology 02/11/20 20:33 Venous blood - Left Hand Blood Culture - Preliminary NO GROWTH AT 48 HOURS 02/11/20 20:18 Venous blood - Left Arm Blood Culture - Preliminary NO GROWTH AT 48 HOURS Laboratory Tests 02/11/20 02/11/20 02/11/20 20:18 20:18 20:18 WBC 12.6 H Hgb 12.7 L D-Dimer Sodium 149 H Potassium BUN 60 H Creatinine 1.77 H Lactic Acid AST ALT Alkaline Phosphatase Troponin I 0.066 H SARS-CoV-2 (PCR) 02/11/20 02/11/20 02/11/20 20:18 20:18 22:43 WBC Hgb D-Dimer 0.47 H Sodium Potassium BUN Creatinine Lactic Acid 5.2 H* AST ALT Alkaline Phosphatase Troponin I SARS-CoV-2 (PCR) DETECTED A* 02/11/20 02/12/20 02/12/20 23:10 00:46 03:30 WBC Hgb D-Dimer Sodium 146 H Potassium 4.2 BUN Creatinine Lactic Acid 1.8 AST 17 ALT 108 H Alkaline Phosphatase 199 H Troponin I 0.065 H SARS-CoV-2 (PCR) 02/12/20 02/14/20 04:30 07:37 WBC Hgb D-Dimer Sodium Potassium BUN Creatinine Lactic Acid AST 45 H ALT 90 H Alkaline Phosphatase 178 H Troponin I 0.052 H SARS-CoV-2 (PCR) Hospitalist ROS - Medication Medications: Active Medications Generic Name Dose Route Start Last Admin Trade Name Freq PRN Reason Stop Dose Admin Amlodipine Besylate 10 mg 02/12/20 09:00 02/14/20 09:08 Amlodipine 10 Mg Tab PO Not Given DAILY [facility] Aripiprazole 5 mg 02/12/20 21:00 02/13/20 20:01 Aripiprazole 10 Mg Tab PO Not Given HS [facility] Ascorbic Acid 1,000 mg 02/14/20 09:00 02/14/20 09:08 Ascorbic Acid 500 Mg Chewable Tablet PO Not Given DAILY [facility] Aspirin 81 mg 02/12/20 09:00 02/14/20 09:08 Aspirin Chewable 81 Mg Tab PO Not Given DAILY [facility] Atorvastatin Calcium 40 mg 02/12/20 21:00 02/13/20 20:01 Atorvastatin Calcium 40 Mg Tab PO Not Given HS [facility] Donepezil HCl 10 mg 02/12/20 09:00 02/14/20 09:08 Donepezil Hcl 10 Mg Tab PO Not Given DAILY [facility] Duloxetine HCl 60 mg 02/12/20 21:00 02/13/20 20:01 Duloxetine 60 Mg Cap PO Not Given HS [facility] Enoxaparin Sodium 40 mg 02/12/20 09:00 02/14/20 09:32 Enoxaparin Sodium 40 Mg/0.4 Ml Syringe SC 40 mg 0900 [facility] Administration Famotidine 20 mg 02/12/20 09:00 02/14/20 09:08 Famotidine 20 Mg Tab PO Not Given DAILY [facility] Hydralazine HCl 50 mg 02/12/20 09:00 02/14/20 09:08 Hydralazine 25 Mg Tab PO Not Given TID [facility] Levofloxacin 750 mg/ Device 150 mls @ 100 mls/hr 02/13/20 23:00 02/13/20 22:39 IVPB 150 mls Q2DAYS [facility] Administration Insulin Glargine 20 units/ 0.2 mls @ 0 mls/hr 02/12/20 21:00 02/13/20 20:43 Miscellaneous Medication SC 0.2 mls HS [facility] Administration Insulin Human Lispro 0 units 02/12/20 06:15 02/12/20 06:27 Humalog 300 Units/3 Ml Vial SC 10 unit .MODERATE SLIDING SC PRN Administration MODERATE SLIDING SCALE Protocol Magnesium Oxide 800 mg 02/12/20 09:00 02/14/20 09:09 Magnesium Oxide 400 Mg Tab PO Not Given DAILY [facility] Memantine 10 mg 02/12/20 09:00 02/14/20 09:09 Memantine Hcl 10 Mg Tab PO Not Given BID [facility] Metoprolol Tartrate 25 mg 02/12/20 09:00 02/14/20 09:09 Metoprolol Tartrate 50 Mg Tab PO Not Given BID [facility] Pantoprazole Sodium 40 mg 02/12/20 09:00 02/14/20 09:09 Pantoprazole 40 Mg Granules Packet PO Not Given DAILY [facility] Zinc Sulfate 220 mg 02/14/20 09:00 02/14/20 09:09 Zinc Sulfate 220 Mg Cap PO Not Given DAILY [facility] - Exam General Appearance: NAD, awake alert Eye: PERRL, anicteric sclera ENT: normocephalic atraumatic, no oropharyngeal lesions Neck: supple, symmetric, no JVD, no thyromegaly, no lymphadenopathy Heart: RRR, no gallops, no rubs, normal peripheral pulses Heart - other findings: S1, S2 Respiratory: no tachypnea Respiratory - other findings: diminished in R base, few scattered rhonchi Gastrointestinal: soft, non-tender, non-distended, normal bowel sounds, no palpable masses Extremities: no cyanosis, no clubbing, no edema Skin: normal turgor Neurological: cranial nerve grossly intact, no new deficit Musculoskeletal: normal tone, generalized weakness Psychiatric: normal affect, oriented to person Hosp A/P (1) Sepsis due to COVID-19 Code(s): U07.1 - COVID-19; A41.89 - OTHER SPECIFIED SEPSIS Status: Acute Plan: Continue Levaquin/Lovenox/Vit C/Zinc/IVF's (2) Pneumonia due to COVID-19 virus Code(s): U07.1 - COVID-19; J12.89 - OTHER VIRAL PNEUMONIA Status: Acute (3) Acute renal failure superimposed on stage 3 chronic kidney disease Code(s): N17.9 - ACUTE KIDNEY FAILURE, UNSPECIFIED; N18.30 - CHRONIC KIDNEY DISEASE, STAGE 3 UNSPECIFIED Status: Acute Plan: Improved, continue IVF's, avoid nephrotoxic meds and limit contrast exposure (4) Hypernatremia Code(s): E87.0 - HYPEROSMOLALITY AND HYPERNATREMIA Status: Acute Plan: Add free-H2O with D5W @ 100ml/h, serial Na+ monitoring (5) Metabolic encephalopathy Code(s): G93.41 - METABOLIC ENCEPHALOPATHY Status: Acute Plan: Multifactorial including infectious process, supportive mgmt (6) Dementia Code(s): F03.90 - UNSPECIFIED DEMENTIA WITHOUT BEHAVIORAL DISTURBANCE Status: Chronic Qualifiers: Dementia type: unspecified type Dementia behavioral disturbance: without behavioral disturbance Qualified Code(s): F03.90 - Unspecified dementia with out behavioral disturbance Plan: Advanced and end-stage process, continue Namenda/Aricept - Plan continue antibiotics, director of social media marketing, speech therapy, respiratory therapy, DVT proph w/SCDs Consults: Palliative Care Stable currently Continue Levaquin Add Vit C/Zinc Continue Lovenox Change D5W IV @ 100ml/h Isolation protocol CODE status: FULL, Guardian attempting to clarify with stockroom supervisor AM lab: CMP, H/H
[2020-02-14] MEDS: Dextrose 5% in Water 1,000 ML IV SCH (16:12)
[2020-02-14] MEDS: Insulin Glargine 20 UNITS in Pre-Filled Syringe 1 EACH SC SCH (20:38)
[2020-02-14] MEDS: DULoxetine 60 MG CAP PO SCH (21:05)
[2020-02-14] MEDS: Aripiprazole 10 MG TAB PO SCH (21:05)
[2020-02-14] MEDS: Atorvastatin Calcium 40 MG TAB PO SCH (21:05)
[2020-02-15] MEDS: Dextrose 5% in Water 1,000 ML IV SCH ×3 (01:30→12:02)
[2020-02-15 08:15] LABS: Hemoglobin 9.3 g/dL (14.0-18.0); Platelet Count 229 thou/uL (130-400)
[2020-02-15 08:26] LABS: ALT (SGPT) 61 U/L (8-55); AST (SGOT) 24 U/L (5-34); Albumin 2.3 g/dL (3.4-4.8); Alkaline Phosphatase 144 U/L (40-110); Anion Gap 11 mmol/L (10-20); BUN (Urea Nitrogen) 10 mg/dL (8.4-25.7); Bilirubin, Total 0.6 mg/dL (0.2-1.2); Calc. Creatinine Clearance 67 mL/min (70-130); Calcium 7.3 mg/dL (7.8-10.44); Carbon Dioxide 24 mmol/L (23-31); Chloride 115 mmol/L (98-107); Estimated GFR-MDRD Greater than 90; Globulin 1.9 g/dL (2.4-3.5); Glucose 142 mg/dL (83-110); Protein, Total 4.2 g/dL (5.8-8.1); Sodium 147 mmol/L (136-145)
[2020-02-15 08:30] LABS: Potassium 2.7 mmol/L (3.5-5.1)
[2020-02-15] MEDS: Enoxaparin Sodium 40 MG/0.4 ML SYRINGE SC SCH (08:59)
[2020-02-15] MEDS: Donepezil HCl 10 MG TAB PO SCH (08:59)
[2020-02-15] MEDS: Ascorbic Acid 500 mg Chewable Tablet PO SCH (08:59)
[2020-02-15] MEDS: Amlodipine 10 MG TAB PO SCH (08:59)
[2020-02-15] MEDS: Pantoprazole 40 MG GRANULES PACKET PO SCH (09:00)
[2020-02-15] MEDS: Aspirin Chewable 81 MG TAB PO SCH (09:00)
[2020-02-15] MEDS: Famotidine 20 MG TAB PO SCH (09:00)
[2020-02-15] MEDS: Metoprolol Tartrate 50 MG TAB PO SCH (09:00)
[2020-02-15] MEDS: hydrALAZINE 25 MG TAB PO SCH ×2 (09:00→14:03)
[2020-02-15] MEDS: Magnesium Oxide 400 MG TAB PO SCH (09:00)
[2020-02-15] MEDS: Zinc Sulfate 220 MG CAP PO SCH (09:00)
[2020-02-15] MEDS: Potassium Chloride 10 MEQ/100 ML PREMIX BAG IVPB SCH ×3 (09:31→14:59)
--- NOTE | 2020-02-15 11:48 | PDOC.HOSPP ---
- Subjective Encounter Date: 02/15/20 Encounter Time: 10:15 Subjective: Patient seen and examined. No new complaints. No overnight events - Objective Vital Signs & Weight: Vital Signs (12 hours) Temp Pulse Resp BP Pulse Ox 02/15/20 08:55 96 F L 56 L 18 111/79 99 02/15/20 06:12 18 Weight Admit Weight 124 lb 6.4 oz Weight 124 lb 6.4 oz I&O: 02/14/20 02/15/20 02/16/20 06:59 06:59 06:59 Intake Total 900 1200 Balance 900 1200 Result Diagrams: 02/15/20 07:49 02/15/20 07:49 Additional Labs: Accuchecks 02/15/20 02/14/20 02/14/20 06:11 20:36 15:44 POC Glucose 124 H 77 94 02/14/20 12:02 POC Glucose 107 H Hospitalist ROS - Review of Systems ENT: denies: ear pain, ear discharge, nose pain, nose discharge, nose congestion, mouth pain, mouth swelling, throat pain, throat swelling, other Respiratory: denies: cough, dry, shortness of breath, hemoptysis, SOB with excertion, pleuritic pain, sputum, wheezing, other Cardiovascular: denies: chest pain, palpitations, orthopnea, paroxysmal noc. dyspnea, edema, light headedness, other Gastrointestinal: denies: nausea, vomiting, abdominal pain, diarrhea, constipation, melena, hematochezia, other Genitourinary: denies: dysuria, frequency, incontinence, hematuria, retention, other - Medication Medications: Active Medications Generic Name Dose Route Start Last Admin Trade Name Hectorq PRN Reason Stop Dose Admin Acetaminophen 650 mg 02/11/20 23:49 02/14/20 22:36 Acetaminophen 650 Mg Suppository NV 650 mg Q4H PRN Administration Headache/Fever/Mild Pain (1-3) Amlodipine Besylate 10 mg 02/12/20 09:00 02/15/20 08:59 Amlodipine 10 Mg Tab PO Not Given DAILY [facility] Aripiprazole 5 mg 02/12/20 21:00 02/14/20 21:05 Aripiprazole 10 Mg Tab PO Not Given HS [facility] Ascorbic Acid 1,000 mg 02/14/20 09:00 02/15/20 08:59 Ascorbic Acid 500 Mg Chewable Tablet PO Not Given DAILY [facility] Aspirin 81 mg 02/12/20 09:00 02/15/20 09:00 Aspirin Chewable 81 Mg Tab PO Not Given DAILY [facility] Atorvastatin Calcium 40 mg 02/12/20 21:00 02/14/20 21:05 Atorvastatin Calcium 40 Mg Tab PO Not Given HS [facility] Donepezil HCl 10 mg 02/12/20 09:00 02/15/20 08:59 Donepezil Hcl 10 Mg Tab PO Not Given DAILY [facility] Duloxetine HCl 60 mg 02/12/20 21:00 02/14/20 21:05 Duloxetine 60 Mg Cap PO Not Given HS [facility] Enoxaparin Sodium 40 mg 02/12/20 09:00 02/15/20 08:59 Enoxaparin Sodium 40 Mg/0.4 Ml Syringe SC 40 mg 0900 [facility] Administration Hydralazine HCl 50 mg 02/12/20 09:00 02/15/20 09:00 Hydralazine 25 Mg Tab PO Not Given TID [facility] Levofloxacin 750 mg/ Device 150 mls @ 100 mls/hr 02/13/20 23:00 02/13/20 22:39 IVPB 150 mls Q2DAYS [facility] Administration Insulin Glargine 20 units/ 0.2 mls @ 0 mls/hr 02/12/20 21:00 02/14/20 20:38 Miscellaneous Medication SC Not Given HS [facility] Dextrose/Water 1,000 mls @ 100 mls/hr 02/14/20 13:00 02/15/20 08:59 D5w IV Not Given .Q10H [facility] Insulin Human Lispro 0 units 02/12/20 06:15 02/12/20 06:27 Humalog 300 Units/3 Ml Vial SC 10 unit .MODERATE SLIDING SC PRN Administration MODERATE SLIDING SCALE Protocol Magnesium Oxide 800 mg 02/12/20 09:00 02/15/20 09:00 Magnesium Oxide 400 Mg Tab PO Not Given DAILY [facility] Memantine 10 mg 02/12/20 09:00 02/15/20 09:00 Memantine Hcl 10 Mg Tab PO Not Given BID [facility] Metoprolol Tartrate 25 mg 02/12/20 09:00 02/15/20 09:00 Metoprolol Tartrate 50 Mg Tab PO Not Given BID [facility] Pantoprazole Sodium 40 mg 02/12/20 09:00 02/15/20 09:00 Pantoprazole 40 Mg Granules Packet PO Not Given DAILY [facility] Potassium Chloride 10 meq 02/15/20 09:00 12 09:31 Potassium Chloride 10 Meq/100 Ml Premix Bag IVPB 02/15/20 15:01 10 meq Q3H [facility] Administration Zinc Sulfate 220 mg 02/14/20 09:00 12 09:00 Zinc Sulfate 220 Mg Cap PO Not Given DAILY [facility] - Exam General Appearance: NAD, awake alert Eye: PERRL, anicteric sclera ENT: normocephalic atraumatic Neck: supple, symmetric, no JVD Heart: RRR, no murmur, no gallops, no rubs Respiratory: no wheezes, no rales, no ronchi Gastrointestinal: soft, non-tender, non-distended, normal bowel sounds Extremities: no clubbing, no edema Skin: normal turgor, no lesions Musculoskeletal: normal tone, generalized weakness Psychiatric: normal affect Hosp A/P (1) Pneumonia due to COVID-19 virus Code(s): U07.1 - COVID-19; J12.89 - OTHER VIRAL PNEUMONIA Status: Acute (2) Sepsis due to COVID-19 Code(s): U07.1 - COVID-19; A41.89 - OTHER SPECIFIED SEPSIS Status: Acute (3) Hypernatremia Code(s): E87.0 - HYPEROSMOLALITY AND HYPERNATREMIA Status: Acute (4) Acute renal failure superimposed on stage 3 chronic kidney disease Code(s): N17.9 - ACUTE KIDNEY FAILURE, UNSPECIFIED; N18.30 - CHRONIC KIDNEY DISEASE, STAGE 3 UNSPECIFIED Status: Acute (5) Metabolic encephalopathy Code(s): G93.41 - METABOLIC ENCEPHALOPATHY Status: Acute (6) Dementia Code(s): F03.90 - UNSPECIFIED DEMENTIA WITHOUT BEHAVIORAL DISTURBANCE Status: Chronic Qualifiers: Dementia type: unspecified type Dementia behavioral disturbance: without behavioral disturbance Qualified Code(s): F03.90 - Unspecified dementia without behavioral disturbance (7) Hypertension Code(s): I10 - ESSENTIAL (PRIMARY) HYPERTENSION Status: Chronic (8) Diabetes Code(s): E11.9 - TYPE 2 DIABETES MELLITUS WITHOUT COMPLICATIONS Status: Chronic Qualifiers: Diabetes mellitus type: type 2 Diabetes mellitus half-way insulin use: with parts counterman use Diabetes mellitus complication status: without complication Qualified Code(s): E11.9 - Type 2 diabetes mellitus without complications; Z79.4 - custodial (current) use of insulin - Plan old records reviewed/req, medical social consultant Patient has elected to go with the hospice facility, patient is not interested in going for PEG tube Continue supportive care for Covid pneumonia Medication reviewed Currently patient is on dextrose with water for hypernatremia for free water deficit, continue empiric Levaquin based on renal dose, Once hospice arrangement completed then will consider discharge anytime
--- NOTE | 2020-02-15 12:30 | PDOC.DS.DS ---
Provider - Provider Date of Admission: 02/11/20 22:32 Date of Discharge: 02/15/20 Admitting Provider: Deng Garcia Primary Care Physician: OUT OF TOWN Course - Hospital Course Hospital Course: Patient was admitted from [facility], patient has a multiple medical problem including GERD, dementia, schizophrenia, Parkinson's disease, diabetes, diastolic heart failure, history of CVA, who was brought to altered mental status, patient has recent history of hospitalization for COVID-19, he has oropharyngeal dysphagia and he was found with abnormal electrolytes with hypernatremia, hyperchloremia, hypokalemia, he has abnormal LFT, this time he is COVID-19 test is still positive, patient was made partial code by palliative care, patient does not want PEG tube, patient family member does not want any aggressive intervention, they want comfort care, with help of telephonic nurse case manager to be arranged patient's long-term prognosis is very poor. hospice upon discharge. Resuscitation Status: 02/14/20 13:22 Resuscitation Status Routine Resuscitation Status: PRTL: Intubate only Discussed with: Pt. "friend for life" Sadie Fraire Additional comments: She is pt. surrogate decision maker - Labs Lab Results: 02/15/20 07:49 02/15/20 07:49 Abnormal Lab Results - Last 48 hrs 02/14/20 07:37: Sodium 150 H, Potassium 3.2 L, Chloride 115 H, AST 45 H, ALT 90 H, Alkaline Phosphatase 178 H, Serum Total Protein 5.2 L, Albumin 2.8 L 02/14/20 07:37: RBC 3.50 L, Hgb 10.9 L, Hct 33.5 L, MCH 31.2 H 02/15/20 07:49: Sodium 147 H, Potassium 2.7 L*, Chloride 115 H, Calcium 7.3 L, ALT 61 H, Alkaline Phosphatase 144 H, Serum Total Protein 4.2 L, Albumin 2.3 L, Globulin 1.9 L 02/15/20 07:49: Hgb 9.3 L, Hct 28.0 L Microbiology - Entire Visit 02/11/20 20:18 Venous blood - Left Arm Blood Culture - Preliminary NO GROWTH AT 48 HOURS 02/11/20 20:33 Venous blood - Left Hand Blood Culture - Preliminary NO GROWTH AT 48 HOURS - Physical Exam Vitals: Vital Signs (12 hours) Temp Pulse Resp BP Pulse Ox 02/15/20 08:55 96 F L 56 L 18 111/79 99 02/15/20 06:12 18 Weight Admit Weight 124 lb 6.4 oz Weight 124 lb 6.4 oz Physical Exam: The patient was seen and examined on the day of discharge. Problem - Problem (1) Pneumonia due to COVID-19 virus Code(s): U07.1 - COVID-19; J12.89 - OTHER VIRAL PNEUMONIA Status: Acute (2) Sepsis due to COVID-19 Code(s): U07.1 - COVID-19; A41.89 - OTHER SPECIFIED SEPSIS Status: Acute (3) Hypernatremia Code(s): E87.0 - HYPEROSMOLALITY AND HYPERNATREMIA Status: Acute (4) Acute renal failure superimposed on stage 3 chronic kidney disease Code(s): N17.9 - ACUTE KIDNEY FAILURE, UNSPECIFIED; N18.30 - CHRONIC KIDNEY DISEASE, STAGE 3 UNSPECIFIED Status: Acute (5) Metabolic encephalopathy Code(s): G93.41 - METABOLIC ENCEPHALOPATHY Status: Acute (6) Dementia Code(s): F03.90 - UNSPECIFIED DEMENTIA WITHOUT BEHAVIORAL DISTURBANCE Status: Chronic Qualifiers: Dementia type: unspecified type Dementia behavioral disturbance: without behavioral disturbance Qualified Code(s): F03.90 - Unspecified dementia without behavioral disturbance (7) Hypertension Code(s): I10 - ESSENTIAL (PRIMARY) HYPERTENSION Status: Chronic (8) Diabetes Code(s): E11.9 - TYPE 2 DIABETES MELLITUS WITHOUT COMPLICATIONS Status: Chronic Qualifiers: Diabetes mellitus type: type 2 Diabetes mellitus termite exterminator helper insulin use: with mcc use Diabetes mellitus complication status: without complication Qualified Code(s): E11.9 - Type 2 diabetes mellitus without complications; Z79.4 - intermediate card tender (current) use of insulin Plan - Discharge Medications Home Medications: Medication Instructions Recorded Confirmed Type hydrALAZINE [Apresoline] 50 mg PO TID 12/28/16 02/12/20 History metFORMIN HCl 1,000 mg PO BID 12/28/16 02/12/20 History Acetaminophen [Acetaminophen ER] 650 mg PO Q4HR PRN 02/12/17 02/12/20 History Amlodipine [Norvasc] 10 mg PO DAILY 02/12/17 02/12/20 History Aspirin Chewable [Aspirin Chewable 81 mg PO DAILY 02/12/17 02/12/20 History Tablet] Atorvastatin Calcium [Lipitor] 40 mg PO HS 02/12/17 02/12/20 History Docusate Sodium 100 mg PO DAILY 02/12/17 01/25/20 History Insulin Regular [HumuLIN R Vial] 0 unit SC ASDIR 02/12/17 02/12/20 History Metoprolol Tartrate 25 mg PO BID 02/12/17 02/12/20 History Pantoprazole [Protonix] 40 mg PO DAILY 02/12/17 02/12/20 History ARIPiprazole [Abilify] 5 mg PO HS 06/19/18 02/12/20 History DULoxetine [Cymbalta] 60 mg PO HS 06/19/18 02/12/20 History Donepezil HCl [Aricept] 10 mg PO DAILY 06/19/18 02/12/20 History Lisinopril [Zestril] 20 mg PO DAILY 06/19/18 02/12/20 History Loratadine [Claritin] 10 mg PO DAILY 06/19/18 02/12/20 History Magnesium Oxide 800 mg PO DAILY 06/19/18 02/12/20 History Memantine HCl [Namenda] 10 mg PO BID 06/19/18 02/12/20 History Ondansetron HCl [Zofran] 4 mg PO Q4HR PRN 06/19/18 02/12/20 History Insulin NPH Hum/Reg Insulin HM 8 units SC 1700 01/25/20 02/12/20 History [Novolin 70-30 100 Unit/ml Vial] Insulin NPH Hum/Reg Insulin HM 16 units SC DAILY-AC 01/25/20 02/12/20 History [Novolin 70-30 100 Unit/ml Vial] Allergies: Penicillins Allergy (Verified 02/12/20 01:25) - Discharge Instructions Activity:: Activity as Tolerated Therapies:: Not Applicable Equipment/Supplies:: Not Applicable IV Therapy:: Not Applicable - Follow up Plan Referrals: [facility]OUT OF [Primary Care Provider] - Disposition: [facility] Quality - Care Measures CORE MEASURES:: N/A
--- NOTE | 2020-02-15 14:10 | PDOC.FMACP ---
Advance Care Planning - Problem (1) Palliative care encounter Status: Acute Code(s): Z51.5 - ENCOUNTER FOR PALLIATIVE CARE (2) Sepsis due to COVID-19 Status: Acute Code(s): U07.1 - COVID-19; A41.89 - OTHER SPECIFIED SEPSIS (3) Acute renal failure superimposed on stage 3 chronic kidney disease Status: Acute Code(s): N17.9 - ACUTE KIDNEY FAILURE, UNSPECIFIED; N18.30 - CHRONIC KIDNEY DISEASE, STAGE 3 UNSPECIFIED (4) Metabolic encephalopathy Status: Acute Code(s): G93.41 - METABOLIC ENCEPHALOPATHY (5) Tremor due to disorder of central nervous system Status: Acute Code(s): R25.1 - TREMOR, UNSPECIFIED; G96.9 - DISORDER OF CENTRAL NERVOUS SYSTEM, UNSPECIFIED (6) Dementia Status: Chronic Code(s): F03.90 - UNSPECIFIED DEMENTIA WITHOUT BEHAVIORAL DISTURBANCE Qualifiers: Dementia type: unspecified type Dementia behavioral disturbance: without behavioral disturbance Qualified Code(s): F03.90 - Unspecified dementia without behavioral disturbance - Note Participants: surrogate decision-maker, palliative care Summary: Palliative Care has address Advanced Care Planning with patient advocate Sadie Fraire. The diagnosis, prognosis and goals of care were discussed. Appropriate forms and documentation to accomplish the goals of care were discussed. All questions were answered. She has requested to transition to intubate only. Elected to transition to hospice care at [facility]. Elected [facility]. Hospice to revisit resuscitation status and provide further education in relation to management of symptoms related to terminal condition through comfort measures. *[facility] *D/C to skilled facility *Revisit Resuscitation with surrogate decision maker Sadie Fraire Please refer to Palliative Care notes in note section. Palliative Care will sign off as Directives addressed and goal of care established. Thank you for this very appropriate consult. Time Spent (mins): 25
[2020-02-15 16:56] VITALS: BP 143/83; TEMP 96.4
--- NOTE | 2020-02-17 14:53 | EKG ---
Test Reason : Blood Pressure : / mmHG Vent. Rate : 085 BPM Atrial Rate : 085 BPM P-R Int : 154 ms QRS Dur : 088 ms QT Int : 380 ms P-R-T Axes : 060 040 221 degrees QTc Int : 452 ms Normal sinus rhythm Abnormal ECG Confirmed by JEREMI WAHL MD ([id number]), scientific publications editor ROYER CASTILLO ([id number]) on 02/17/2020 2:53:05 PM Referred By: Confirmed By:JEREMI WAHL MD
== END 2020-02-15 17:57 | disposition hospice, inpatient (51) | DRG 871 ==
LOC: ERS 19:47 → T4-B 22:32
PROVIDERS: ADMIT Internal Medicine; ATTEND Internal Medicine
PROC: 8E0ZXY6 Isolation (ICD-10-PCS; principal; 2020-02-11)
DX: A41.89 Other specified sepsis (principal); U07.1 COVID-19; J12.89 Other viral pneumonia; G93.41 Metabolic encephalopathy; N17.9 Acute kidney failure, unspecified; E87.0 Hyperosmolality and hypernatremia; I50.32 Chronic diastolic (congestive) heart failure; I13.0 Hypertensive heart and chronic kidney disease with heart failure and stage 1 through stage 4 chronic kidney disease, or unspecified chronic kidney disease; Z51.5 Encounter for palliative care; N18.30 Chronic kidney disease, stage 3 unspecified; E11.22 Type 2 diabetes mellitus with diabetic chronic kidney disease; K21.9 Gastro-esophageal reflux disease without esophagitis; F20.9 Schizophrenia, unspecified; G20 Parkinson's disease; F02.80 Dementia in other diseases classified elsewhere, unspecified severity, without behavioral disturbance, psychotic disturbance, mood disturbance, and anxiety; R13.12 Dysphagia, oropharyngeal phase; E87.5 Hyperkalemia; E87.6 Hypokalemia; E87.8 Other disorders of electrolyte and fluid balance, not elsewhere classified; G30.9 Alzheimer's disease, unspecified; R79.89 Other specified abnormal findings of blood chemistry; E78.5 Hyperlipidemia, unspecified; Z88.0 Allergy status to penicillin; Z86.73 Personal history of transient ischemic attack (TIA), and cerebral infarction without residual deficits; Z28.21 Immunization not carried out because of patient refusal; Z79.899 Other long term (current) drug therapy; Z79.82 Long term (current) use of aspirin; Z79.4 Long term (current) use of insulin
CPT/HCPCS: 36415; 36416; 51701; 71045; 71275; 76770; 80053; 81003; 82550; 82553; 83605; 83690; 83880; 84145; 84484; 85007; 85014; 85018; 85025; 85027; 85049; 85379; 87040; 87635; 93005; 96374; J1650; J1815; J1956; J3370; J3480; Q9967; U0003

== ENCOUNTER 2020-03-06 15:18 | Inpatient (IN) | payer MEDICARE, MEDICAID ==
--- NOTE | 2020-03-06 15:54 | RAD ---
PORTABLE CHEST: 03/06/20 PROVIDED CLINICAL HISTORY: Altered mental status. FINDINGS: Comparison 02/11/20. Cardiac and mediastinal silhouette is unchanged in appearance. No focal consolidation, pleural fluid or pneumothorax apparent. IMPRESSION: No evidence for an acute cardiopulmonary process. POS: JEFF
[2020-03-06 16:12] LABS: #Basophils 0.1 thou/uL (0.0-0.2); #Lymphocytes 3.6 thou/uL (1.20-3.40); #Neutrophils 8.6 thou/uL (1.40-6.50); %Basophils 0.8 % (0.0-1.0); %Eosinophils 0.3 % (0.0-10.0); %Lymphocytes 26.9 % (21.0-51.0); %Monocytes 7.2 % (0.0-10.0); %Neutrophils 64.7 % (42.0-75.0); Hemoglobin 12.4 g/dL (14.0-18.0); Mean Corpuscular HGB CONC 33.1 g/dL (32.0-36.0); Mean Corpuscular Hemoglobin 32.2 pg (27.0-31.0); Mean Corpuscular Volume 97.2 fL (78.0-98.0); Mean Platelet Volume 7.2 fL (7.4-10.4); Platelet Count 414 thou/uL (130-400); RBC Distribution Width 15.9 % (11.5-14.5); Red Blood Cell (RBC) Count 3.86 mill/uL (4.70-6.10); White Blood Cell (WBC) Count 13.2 thou/uL (4.8-10.8)
[2020-03-06 16:34] LABS: ALT (SGPT) 11 U/L (8-55); AST (SGOT) 10 U/L (5-34); Albumin 3.7 g/dL (3.4-4.8); Alkaline Phosphatase 145 U/L (40-110); Anion Gap 21 mmol/L (10-20); BUN (Urea Nitrogen) 47 mg/dL (8.4-25.7); Bilirubin, Total 0.7 mg/dL (0.2-1.2); Calc. Creatinine Clearance 0 mL/min (70-130); Carbon Dioxide 27 mmol/L (23-31); Chloride 110 mmol/L (98-107); Glucose 120 mg/dL (83-110); Magnesium 1.8 mg/dL (1.6-2.6); Protein, Total 6.7 g/dL (5.8-8.1); Sodium 153 mmol/L (136-145)
[2020-03-06] MEDS ORDERED: Acetaminophen 650 MG Suppository ONE (16:34)
--- NOTE | 2020-03-06 16:38 | CT ---
CT BRAIN 03/06/20 PROVIDED CLINICAL HISTORY: Altered mental status. FINDINGS: Comparison 01/24/20. The ventricular system appears normal in size and morphology. There is no evidence for intracranial h emorrhage or mass effect. Chronic microvascular ischemic changes are redemonstrated. The extracranial soft tissues and osseous structures demonstrate no significant abnormality. IMPRESSION: No evidence for intracranial hemorrhage or mass effect. POS: JEFF
[2020-03-06] MEDS ORDERED: Acetaminophen 650 MG Suppository PR SCH (16:45)
[2020-03-06] MEDS ORDERED: Aztreonam 2 GM in Sodium Chloride 0.9% 100 ML IVPB SCH (16:45)
[2020-03-06] MEDS ORDERED: Vancomycin 1.5 GRAM/300 ML BAG 1.5 GM in Premix Bag 1 BAG IVPB SCH (16:45)
[2020-03-06] MEDS ORDERED: Sodium Chloride 0.9% 1,000 ML IV SCH (16:45)
[2020-03-06 17:02] LABS: Bilirubin 1+ (Negative); Blood, Urine Negative (Negative); Clarity Clear (Clear); Glucose, Urine (Dipstick) 500 mg/dL (Negative); Ketone, Urine 10 mg/dL (Negative); Leukocyte Negative Leu/uL (Negative); Nitrite Negative (Negative); Protein, Urine (Dipstick) 20 mg/dL (Neg-Trace); Specific Gravity, Urine 1.024 (1.002-1.036)
--- NOTE | 2020-03-06 20:09 | PDOC.HHP ---
Hospitalist HPI - History of Present Illness Altered mental status History of Present Illness: Is a 74-year-old male patient with a history of Parkinson's disease, GERD, Alzheimer's disease dementia who was brought in from his hospice facility on account of altered mental status.[facility] Of note he was admitted from his care home and discharged on 02/15/2020 after being managed for altered mental status. Also previously had COVID-19. On developing altered mental status, EMS was activated and was brought in here for further management. On arrival it was noted that his blood pressure was 114/86, pulse 96, respiratory 26 saturating 95 on 2 L. Mr. Louise is 100.3. His sodium was 153, chloride 110 anion gap 21 creatinine 2.47. He had a leukocytosis of 13.7, hemoglobin 12.4 and platelets 414. His lactate was 1.8. He was started on aztreonam vancomycin and Levaquin with 30 mils per KG IV fluids per sepsis protocol. His hospice facility was contacted and decision was to admit and have hospice evaluate for inpatient hospice. Hospitalist team consulted to admit Hospitalist ROS - Review of Systems ROS unobtainable: due to mental status Hospitalist History - Past Medical History Other Medical History: Alzheimer's disease, CVA, Parkinson's disease, chronic debility. - Past Surgical History Other Surgical History: Right hip surgery. - Family History Family History: reports: no pertinent history - Social History Alcohol: reports: None Drugs: reports: none Living Situation: Custodial - Exam General Appearance: ill appearing General - other findings: Not communicative. Eye: PERRL, anicteric sclera Heart: RRR, no murmur, no gallops Respiratory - other findings: Poor air movement, occasional wheeze Gastrointestinal: soft, non-tender Extremities: no cyanosis, no clubbing, no edema Extremities - other findings: Scattered bruises and lesions. Hospitalist Results - Labs Result Diagrams: 03/06/20 15:55 03/06/20 15:55 Lab results: WBC 13.2 thou/uL (4.8-10.8) H 03/06/20 15:55 Hgb 12.4 g/dL (14.0-18.0) L 03/06/20 15:55 Hct 37.5 % (42.0-52.0) L 03/06/20 15:55 MCV 97.2 fL (78.0-98.0) 03/06/20 15:55 Plt Count 414 thou/uL (130-400) H 03/06/20 15:55 Neutrophils % 64.7 % (42.0-75.0) 03/06/20 15:55 Sodium 153 mmol/L (136-145) H 03/06/20 15:55 Potassium 5.0 mmol/L (3.5-5.1) 03/06/20 15:55 Chloride 110 mmol/L (98-107) H 03/06/20 15:55 Carbon Dioxide 27 mmol/L (23-31) 03/06/20 15:55 BUN 47 mg/dL (8.4-25.7) H 03/06/20 15:55 Creatinine 2.47 mg/dL (0.7-1.3) H 03/06/20 15:55 Glucose 120 mg/dL (83-110) H 03/06/20 15:55 Lactic Acid 1.5 mmol/L (0.5-2.2) 03/06/20 15:55 Calcium 9.0 mg/dL (7.8-10.44) 03/06/20 15:55 Total Bilirubin 0.7 mg/dL (0.2-1.2) 03/06/20 15:55 AST 10 U/L (5-34) 03/06/20 15:55 ALT 11 U/L (8-55) 03/06/20 15:55 Alkaline Phosphatase 145 U/L (40-110) H 03/06/20 15:55 Troponin I 0.020 ng/mL (< 0.028) 03/06/20 15:55 Serum Total Protein 6.7 g/dL (5.8-8.1) 03/06/20 15:55 Albumin 3.7 g/dL (3.4-4.8) 03/06/20 15:55 Urine Ketones 10 mg/dL (Negative) A 03/06/20 16:50 Urine Blood Negative (Negative) 03/06/20 16:50 Urine Nitrite Negative (Negative) 03/06/20 16:50 Ur Leukocyte Esterase Negative Thea/uL (Negative) 03/06/20 16:50 Hospitalist H&P A/P - Plan Plan: 74-year-old male patient with an extensive past medical history recently discharged to hospice who is back on account of altered mental status and seps is. Acute encephalopathy Likely secondary to sepsis Continue monitor Severe sepsis Patient has altered mental status, leukocytosis and tachypnea Also has fever of 100.3 Continue antibiotics Received 30 mils per KG fluids Lactate normal Hyponatremia Likely dehydration Hydrate Monitor BMP Poor clinical situation. Recently on hospice He will have hospice evaluation tomorrow Consults Case management/palliative care DVT prophylaxisLovenox CODE STATUSDNR Dispositioninpatient hospice
--- NOTE | 2020-03-06 20:17 | PDOC.FMACP ---
Advance Care Planning - Note Summary: Advanced Care Planning was discussed. Patient was brought in from hospice facility He will be admitted and have evaluation for inpatient hospice tomorrow
[2020-03-06 22:14] VITALS: BMI 17.7
[2020-03-06] MEDS: Sodium Chloride 0.9% 1,000 ML IV SCH (22:38)
[2020-03-07 06:01] LABS: SARS-CoV-2 MS2 Positive; SARS-CoV-2 N Gene Positive; SARS-CoV-2 S Gene Positive; SARS-CoV-2 by NAA DETECTED (NotDetected); SARS-CoV-2 orf1ab Positive
[2020-03-07] MEDS: Sodium Chloride 0.9% 1,000 ML IV SCH (12:00)
--- NOTE | 2020-03-07 17:03 | PDOC.HOSPP ---
- Subjective Encounter Date: 03/07/20 Encounter Time: 13:00 Subjective: Patient up in bed nonresponsive. - Objective Vital Signs & Weight: Vital Signs (12 hours) Temp Pulse Resp BP Pulse Ox 03/07/20 08:50 97.8 F 110 H 18 159/85 H 94 L 03/07/20 08:00 94 L 03/07/20 07:42 97.6 F 99 18 127/59 L 98 Weight Admit Weight 120 lb Weight 120 lb 1 oz I&O: 03/06/20 03/07/20 03/08/20 06:59 06:59 06:59 Intake Total 560 Balance 560 Result Diagrams: 03/06/20 15:55 03/06/20 15:55 Hospitalist ROS - Review of Systems Other: Unable to obtain. - Medication Medications: Active Medications Generic Name Dose Route Start Last Admin Trade Name Freq PRN Reason Stop Dose Admin Sodium Chloride 1,000 mls @ 70 mls/hr 03/06/20 20:00 03/07/20 12:00 Normal Saline 0.9% IV 1,000 mls .[id number] ALEJANDRO Administration - Exam Heart: negative: RRR, no murmur, no gallops, no rubs, normal peripheral pulses, irregular, diminshed peripheral pulses, murmur present, II/IV, III/IV Respiratory: negative: CTAB, no wheezes, no rales, no ronchi, normal chest expansion, no tachypnea, normal percussion, rales, rhonchi, tachypneic, wheezes Gastrointestinal: negative: soft, non-tender, non-distended, normal bowel sounds, no palpable masses, no hepatomegaly, no splenomegaly, no bruit, no guarding, no rigidity, tender to palpation, distended, diminished bowl sounds, voluntary guarding Hosp A/P (1) Hypernatremia Code(s): E87.0 - HYPEROSMOLALITY AND HYPERNATREMIA Status: Acute (2) Dementia Code(s): F03.90 - UNSPECIFIED DEMENTIA WITHOUT BEHAVIORAL DISTURBANCE Status: Chronic Qualifiers: Dementia type: unspecified type Dementia behavioral disturbance: without behavioral disturbance Qualified Code(s): F03.90 - Unspecified dementia without behavioral disturbance (3) Diabetes Code(s): E11.9 - TYPE 2 DIABETES MELLITUS WITHOUT COMPLICATIONS Status: Chronic Qualifiers: Diabetes mellitus type: type 2 Diabetes mellitus computer terminal operator insulin use: with mcc use Diabetes mellitus complication status: without complication Qualified Code(s): E11.9 - Type 2 diabetes mellitus without complications; Z79.4 - USP (current) use of insulin (4) Hypertension Code(s): I10 - ESSENTIAL (PRIMARY) HYPERTENSION Status: Chronic (5) Type 2 diabetes mellitus with hypoglycemia Code(s): E11.649 - TYPE 2 DIABETES MELLITUS WITH HYPOGLYCEMIA WITHOUT COMA Status: Chronic (6) NAFISA (acute kidney injury) Code(s): N17.9 - ACUTE KIDNEY FAILURE, UNSPECIFIED Status: Acute (7) Hypernatremia Code(s): E87.0 - HYPEROSMOLALITY AND HYPERNATREMIA Status: Acute - Plan Spoke with patient's POA Ms. Fraire she is okay for patient to be transition to hospice. Awaiting inpatient hospice eval. We will continue current treatment for now. His overall prognosis appears poor
[2020-03-07] MEDS ORDERED: FLU VACC QS2020-21(65YR UP)/PF 240 MCG/0.7 ML SYRINGE IM ONE (21:00)
[2020-03-07 21:05] VITALS: BP 109/67; TEMP 97.2
--- NOTE | 2020-03-08 10:10 | PDOC.DS.DS ---
Provider - Provider Date of Admission: 03/06/20 19:34 Date of Discharge: 03/07/20 Admitting Provider: Vince Ambrose MD Primary Care Physician: Tato Laura Course - Hospital Course Resuscitation Status: 03/06/20 19:57 Resuscitation Status Routine Resuscitation Status: DNAR: NO Resuscitation Discussed with: On patient's record. - Labs Lab Results: 03/06/20 15:55 03/06/20 15:55 Abnormal Lab Results - Last 48 hrs 03/06/20 15:55: Sodium 153 H, Chloride 110 H, Anion Gap 21 H, BUN 47 H, Creatinine 2.47 H, Alkaline Phosphatase 145 H 03/06/20 15:55: WBC 13.2 H, RBC 3.86 L, Hgb 12.4 L, Hct 37.5 L, MCH 32.2 H, RDW 15.9 H, Plt Count 414 H, MPV 7.2 L, Neutrophils # 8.6 H, Lymphocytes # 3.6 H, Monocytes # 1.0 H 03/06/20 16:50: Urine Glucose (UA) 500 A, Urine Ketones 10 A, Urine Bilirubin 1+ A, Urine Urobilinogen 2.0 A 03/06/20 22:40: SARS-CoV-2 (PCR) DETECTED A* Microbiology - Entire Visit 03/06/20 16:50 Urine Straight Catheter Urine Culture - Final NO GROWTH AT 36 HOURS 03/06/20 15:56 Venous blood - Left Hand Blood Culture - Preliminary Coagulase Neg Staphylococcus Gram Positive Jarod 03/06/20 16:09 Venous blood - Right Arm Blood Culture - Preliminary Specimen has been received and culture in progress. No Growth to date. - Physical Exam Vitals: Weight Admit Weight 120 lb Weight 120 lb 1 oz Physical Exam: The patient was seen and examined on the day of discharge. Problem - Problem (1) Hypernatremia Code(s): E87.0 - HYPEROSMOLALITY AND HYPERNATREMIA Status: Acute (2) Dementia Code(s): F03.90 - UNSPECIFIED DEMENTIA WITHOUT BEHAVIORAL DISTURBANCE Status: Chronic Qualifiers: Dementia type: unspecified type Dementia behavioral disturbance: without behavioral disturbance Qualified Code(s): F03.90 - Unspecified dementia without behavioral disturbance (3) Diabetes Code(s): E11.9 - TYPE 2 DIABETES MELLITUS WITHOUT COMPLICATIONS Status: Chronic Qualifiers: Diabetes mellitus type: type 2 Diabetes mellitus residential insulin use: with residential use Diabetes mellitus complication status: without complication Qualified Code(s): E11.9 - Type 2 diabetes mellitus without complications; Z79.4 - USP (current) use of insulin (4) Hypertension Code(s): I10 - ESSENTIAL (PRIMARY) HYPERTENSION Status: Chronic (5) Type 2 diabetes mellitus with hypoglycemia Code(s): E11.649 - TYPE 2 DIABETES MELLITUS WITH HYPOGLYCEMIA WITHOUT COMA Status: Chronic (6) NAFISA (acute kidney injury) Code(s): N17.9 - ACUTE KIDNEY FAILURE, UNSPECIFIED Status: Acute (7) Hypernatremia Code(s): E87.0 - HYPEROSMOLALITY AND HYPERNATREMIA Status: Acute Plan - Discharge Medications Home Medications: Medication Instructions Recorded Confirmed Type Glucagon,Human Recombinant 1 mg IM Q8HR PRN 03/06/20 03/07/20 History [Glucagen] Hyoscyamine Sulfate 0.125 mg SL Q4HR PRN 03/06/20 03/07/20 History LORazepam [Lorazepam] 1 tab PO Q4HR PRN 03/06/20 03/07/20 History LORazepam [Lorazepam] 2 tab PO Q4HR PRN 03/06/20 03/07/20 History Morphine Sulfate 0.25 ml SL Q2HR PRN 03/06/20 03/07/20 History Morphine Sulfate 0.5 ml SL Q2HR PRN 03/06/20 03/07/20 History Morphine Sulfate 0.75 ml SL Q2HR PRN 03/06/20 03/07/20 History Morphine Sulfate 1 ml SL Q2HR PRN 03/06/20 03/07/20 History Ondansetron [Zofran ODT] 4 mg PO Q4HR PRN 03/06/20 03/07/20 History Ondansetron [Zofran ODT] 8 mg PO Q6HR PRN 03/06/20 03/07/20 History Sennosides/Docusate Sodium [Senna 1 each PO Q24HR PRN 03/06/20 03/07/20 History Plus 8.6-50 mg Tablet] Allergies: Penicillins Allergy (Verified 03/06/20 22:09) - Discharge Instructions Activity:: Activity as Tolerated Nourishment:: Regular Diet - Follow up Plan Referrals: Tato Laura [Primary Care Provider] - Disposition: HOSPICE MEDICAL FACILITY Quality - Care Measures CORE MEASURES:: N/A
== END 2020-03-07 22:18 | disposition hospice, inpatient (51) | DRG 871 ==
LOC: ERS 15:18 → T4-A 19:34
PROVIDERS: ADMIT Student in an Organized Health Care Education/Training Program; ATTEND Internal Medicine
DX: A41.9 Sepsis, unspecified organism (principal); L89.153 Pressure ulcer of sacral region, stage 3; G93.41 Metabolic encephalopathy; J96.90 Respiratory failure, unspecified, unspecified whether with hypoxia or hypercapnia; I50.32 Chronic diastolic (congestive) heart failure; N17.9 Acute kidney failure, unspecified; G93.49 Other encephalopathy; E87.1 Hypo-osmolality and hyponatremia; E46 Unspecified protein-calorie malnutrition; Z68.1 Body mass index [BMI] 19.9 or less, adult; R65.20 Severe sepsis without septic shock; Z66 Do not resuscitate; Z51.5 Encounter for palliative care; K21.9 Gastro-esophageal reflux disease without esophagitis; F20.9 Schizophrenia, unspecified; G20 Parkinson's disease; F02.80 Dementia in other diseases classified elsewhere, unspecified severity, without behavioral disturbance, psychotic disturbance, mood disturbance, and anxiety; E78.5 Hyperlipidemia, unspecified; E86.0 Dehydration; E11.649 Type 2 diabetes mellitus with hypoglycemia without coma; I11.0 Hypertensive heart disease with heart failure; Z88.0 Allergy status to penicillin; Z86.19 Personal history of other infectious and parasitic diseases; Z79.4 Long term (current) use of insulin; Z79.82 Long term (current) use of aspirin; Z79.899 Other long term (current) drug therapy; Z86.73 Personal history of transient ischemic attack (TIA), and cerebral infarction without residual deficits; L89.622 Pressure ulcer of left heel, stage 2; L89.612 Pressure ulcer of right heel, stage 2; G30.9 Alzheimer's disease, unspecified
CPT/HCPCS: 36415; 51701; 70450; 71045; 80053; 81003; 83605; 83735; 84484; 85025; 87040; 87086; 87149; 87635; 93005; 94760; 96365; 96366; 96367; 96368; J1956; J3370; J3490; U0003

== ENCOUNTER 2020-03-07 22:17 | Inpatient (IN) | payer OTHER ==
[2020-03-07] MEDS ORDERED: Ondansetron PF 4 MG/2 ML Vial IVP PRN (22:45)
[2020-03-07] MEDS ORDERED: Lorazepam 2 MG/ML VIAL SLOW IVP PRN (22:45)
[2020-03-07] MEDS ORDERED: Scopolamine 1.5 mg/72 hour Patch TOP PRN ×2 (22:45)
[2020-03-07] MEDS ORDERED: Acetaminophen 650 MG Suppository PR PRN (22:45)
[2020-03-07 22:49] VITALS: BMI 17.7
[2020-03-07] MEDS: Morphine 4 MG/ML VIAL SLOW IVP PRN (23:35)
[2020-03-08] MEDS: Morphine 4 MG/ML VIAL SLOW IVP PRN ×4 (02:43→17:56)
[2020-03-09 07:56] VITALS: BP 56/26; TEMP 97.9
== END 2020-03-09 11:50 | disposition expired | DRG 951 ==
LOC: T4-A 22:17
PROVIDERS: ADMIT Family Medicine; ATTEND Family Medicine
DX: Z51.5 Encounter for palliative care (principal); A41.9 Sepsis, unspecified organism; R65.20 Severe sepsis without septic shock; G93.41 Metabolic encephalopathy; E87.1 Hypo-osmolality and hyponatremia; Z66 Do not resuscitate; G30.9 Alzheimer's disease, unspecified; F02.80 Dementia in other diseases classified elsewhere, unspecified severity, without behavioral disturbance, psychotic disturbance, mood disturbance, and anxiety; G20 Parkinson's disease; Z86.19 Personal history of other infectious and parasitic diseases; Z79.899 Other long term (current) drug therapy
CPT/HCPCS: J2270